=== PATIENT | female | born 1990 | race Two or more races ===

== ENCOUNTER 2022-08-23 10:37 | Emergency (ER) | payer OTHER, SELFPAY ==
[2022-08-23 10:39] VITALS: BP 145/91; PULSE 99; RESP 22; TEMP 36.8; O2SAT 95; BMI 39.9
--- NOTE | 2022-08-23 11:13 | PC.NURSE ---
swabs obtained sent to lab
--- NOTE | 2022-08-23 11:18 | ED.URI ---
HPI - URI/Sore Throat General Chief Complaint: Upper Respiratory Symptoms Stated Complaint: Diff breathing/Lung pain Time Seen by Provider: 08/23/22 11:04 Source: patient Mode of arrival: ambulatory Limitations: no limitations History of Present Illness HPI Narrative: Patient is a 32-year-old female who presents emergency department for evaluation of upper respiratory symptoms. Fever, cough, body aches, headache. Symptom onset 3 days ago. Yesterday at work took a COVID-19 test as there was an exposure in her office which she reports was negative. States no other individuals in her home are ill with similar symptoms currently. Denies vaccination for COVID-19 or influenza. Denies chest pain, wheezing, nausea, vomiting, abdominal pain. Review of Systems Review of Systems: Constitutional: Positive fever. Positive chills. No weakness. Positive fatigue. ENT/ Mouth: No Ear Pain, positive Nasal Congestion, no sore throat, No Rhinorrhea, No Swallowing Difficulty Skin: No rash or itching. Cardiovascular: No chest pain. No palpitations. Respiratory: Positive intermittent shortness of breath. Positive cough. No sputum production. Gastrointestinal: No nausea. No vomiting. No diarrhea. No abdominal pain. Genitourinary: No burning micturition. No urinary frequency. Neurologic: No headache. No dizziness. No syncope. No numbness or tingling in the extremities. Musculoskeletal: No muscle pain. No back pain. No joint pain or stiffness. Yes all other systems are reviewed and are negative [facility] Past Medical History Attestation statement: The following information was validated with the patient. Source: old records reviewed Social History Social History Advance Directives: No Advance Directives Information Provided: Yes Physical Exam Vital Signs: Vital Signs: Last Vital Signs Temp 98.3 F 08/23/22 10:39 Pulse 99 08/23/22 10:39 Resp 22 H 08/23/22 10:39 BP 145/91 H 08/23/22 10:39 Pulse Ox 95 08/23/22 10:39 O2 Del Method 08/23/22 10:39 BMI result Body Mass Index 39.9 Appearance: Alert.?Oriented to person, place and time. No acute distress.?Normal affect. Eyes: Pupils equal, round and reactive to light.? ENT: TM normal bilaterally. Pharynx normal.?? Neck: Normal inspection.? Neck supple.??No cervical adenopathy CVS: Heart sounds normal. Normal heart rate and rhythm.? Pulses normal.?? Respiratory: No respiratory distress.? Lung sounds clear to auscultation bilaterally?? Abdomen: Soft and non-tender. Normoactive bowel sounds. Skin: Skin warm and dry.? Normal skin color.? ? Extremities: No lower extremity edema.? Neuro: Moves all extremities spontaneously. Sensation intact bilaterally. No motor deficits. Ambulates with normal steady gait. Medical Decision Making Medical Decision Making [facility] Narrative: Patient is a 32-year-old female with no reported past medical history, presenting for evaluation of upper respiratory symptoms. COVID-19 testing is negative. Influenza testing is negative. At this time history and physical exam not consistent with ACS/PE/pneumonia. Well-appearing, nontoxic, afebrile, no tachycardia or hypoxia. Speaking clear full sentences, ambulatory with steady gait. Discussed conservative treatment including rest, hydration, Tylenol/ibuprofen as needed for fever and body aches, saline nasal spray, humidifier, qnhj-xtw-ftnangs cold medication. Advised to follow-up with primary care provider as needed, discussed reasons to return back to the emergency department. All questions were answered. Patient discharged home in stable condition. Provided with a return to work note. Lab Data [facility] Lab Attestation statement: I reviewed the patient's lab results. Labs: Lab Results 08/23/22 08/23/22 Range/Units 11:06 11:06 COVID-19 (YANIRA) Negative (Negative) COVID-19 Clin Com See Note Influenza Type A (SLY) Negative (Negative) Influenza Type B (SLY) Negative (Negative) Influenza A & B Note See Note Tests considered The following testing was considered but not selected: Chest x-ray was considered, however no hypoxia, increased work of breathing, low suspicion for pneumonia at this time. Chest x-ray was deferred. Prescription Management I considered prescription management with: Antibiotic (Symptoms most consistent with viral upper respiratory infection at this time, antibiotics deferred.) Discharge Plan Discharge Clinical Impression: Upper respiratory infection Patient Disposition: Home, Self-Care Instructions: Upper Respiratory Infection (ED) Additional Instructions: Your testing for COVID-19 and flu were both negative today. At this time your symptoms are most consistent with a viral respiratory infection, this does not require treatment with antibiotics. Be sure to rest, stay well hydrated drinking plenty of fluids, eat small frequent meals. Tylenol/ibuprofen can be used as needed for fever/pain. Umac-mko-nxydqge cold medications may be helpful as well for symptoms. Saline nasal spray, humidifier may be helpful for nasal congestion. You may return to the emergency department with any new or worsening symptoms or concerns. Follow-up with your primary care provider as needed. Should remain out of school/ work until symptoms have resolved and have been without a fever for 24 hours without the use of Tylenol or ibuprofen. Referrals: Physician,Unknown J [Primary Care Provider] - Stand Alone Forms: Work/School Release
[2022-08-23 11:38] LABS: COVID-19 Test Negative (Negative); IDNOW Serial# 08D9AD1C; Influenza A Negative (Negative); Influenza B2 Negative (Negative)
== END 2022-08-23 12:21 | disposition home or self-care (01) ==
PROVIDERS: Emergency Provider Student in an Organized Health Care Education/Training Program
DX: J06.9 Acute upper respiratory infection, unspecified (principal); Z20.822 Contact with and (suspected) exposure to COVID-19
CPT/HCPCS: 87502; 87635; 99282; 99283

== ENCOUNTER → 2022-12-12 15:11 | Outpatient (BNVA) | payer MEDICAID, SELFPAY | PROVIDERS: Visit Provider Physician Assistant ==

== ENCOUNTER → 2023-01-03 12:54 | Outpatient (BNVA) | payer OTHER, SELFPAY | PROVIDERS: PCP Physician Assistant; Visit Provider Physician Assistant Surgical | DX: E66.01 Morbid (severe) obesity due to excess calories (principal); G47.33 Obstructive sleep apnea (adult) (pediatric); Z68.41 Body mass index [BMI] 40.0-44.9, adult | CPT/HCPCS: 99202 ==

== ENCOUNTER 2023-01-11 08:16 | Outpatient (REF) | payer OTHER, SELFPAY ==
--- NOTE | ~2023-01-11 | XR_ITS ---
EXAMINATION: XR CHEST CLINICAL INFORMATION: Reason for Exam E66.01 - Morbid (severe) obesity due to excess calories COMPARISON: None TECHNIQUE: 2 views of the chest FINDINGS: Lines and tubes: None. Clear lungs. No pleural effusion. No pneumothorax. Normal cardiomediastinal silhouette. XR/XR chest 2V IMPRESSION: * Clear lungs.
--- NOTE | 2023-01-11 08:23 | ECG_ITS ---
Test Reason : e66.01 Blood Pressure : / mmHG Vent. Rate : 075 BPM Atrial Rate : 075 BPM P-R Int : 160 ms QRS Dur : 094 ms QT Int : 378 ms P-R-T Axes : 048 044 010 degrees QTc Int : 422 ms Normal sinus rhythm Normal ECG No previous ECGs available Referred By: Jose Wilkes Electronically Signed By:MEENU FLOWERS MD
[2023-01-11 08:35] LABS: MANUAL DIFF FLAG NO
[2023-01-11 09:34] LABS: Basophils Percent Auto 0.3 % (0-2); Eosinophils Absolute Auto 0.1 X10*3/uL (0.0-0.4); Hematocrit 34.8 % (37.0-47.0); Hemoglobin 10.7 g/dl (12.0-16.0); Imm Gran Abs Auto 0.04 X10*3/uL (0.00-0.03); Imm Gran Pct Auto 0.4 % (0.0-0.4); Lymphocytes Absolute Auto 2.5 X10*3/uL (1.2-4.9); Lymphocytes Percent Auto 26.3 % (20-40); Mean Corpuscular HGB Conc 30.7 g/dl (31.0-35.0); Mean Corpuscular Hemoglobin 21.7 pg (27.0-33.0); Mean Corpuscular Volume 70.4 fL (80.0-98.0); Mean Platelet Volume 10.5 fL (9.4-12.3); Monocytes Absolute Auto 0.5 X10*3/uL (0.1-1.2); Monocytes Percent Auto 5.5 % (2-11); Neutrophils Absolute Auto 6.3 x10*3/uL (2.0-8.3); Neutrophils Percent Auto 66.5 % (45-73); Platelet Count 426 X10*3/uL (160-400); Red Blood Count 4.94 X10*6/uL (4.20-5.50); Red Cell Distribution Width 15.8 % (11.0-16.0); White Blood Count 9.4 X10*3/uL (4.8-10.8)
[2023-01-11 09:50] LABS: Estimated Average Glucose 114 mg/dL; Hemoglobin A1c % 5.6 %
[2023-01-11 10:45] LABS: Alanine Aminotransferase 15 U/L (0-31); Albumin Level 4.1 g/dL (3.5-5.0); Alkaline Phosphatase 69 U/L (39-117); Anion Gap 11 (12-20); Aspartate Amino Transferase 11 U/L (5-31); Bilirubin Total 0.5 mg/dL (0.0-1.0); Blood Urea Nitrogen 16 mg/dL (9-16); C Reactive Protein 1.82 mg/dL (< or = 0.50); Calcium 9.5 mg/dL (8.4-10.2); Carbon Dioxide 25 mmol/L (22-29); Chloride 105 mmol/L (96-108); Cholesterol 159 mg/dL; Estimated Glomerular Filt Rate > 60; Glucose Random 93 mg/dL (60-115); HDL Cholesterol 35 mg/dL; Iron 56 mcg/dL (30-160); LDL Cholesterol Calculated 94 mg/dl; Percent Iron Saturation 13 % (15-50); Sodium 137 mmol/L (135-145); Total Iron Binding Capacity 430 mcg/dL (228-428); Total Protein 6.9 g/dL (6.5-8.0); Triglycerides 153 mg/dL; Unsaturated Iron Binding 374 ug/dL
[2023-01-11 11:06] LABS: Ferritin 21 ng/mL (10-122); Folate 13.7 ng/mL (> or = 4.0); TSH reflex Free T4 0.89 uIU/mL (0.32-4.0); Vitamin B12 318 pg/mL (200-900); Vitamin D 25-OH Total 30.8 ng/mL (>30)
[2023-01-11 11:24] LABS: Insulin 18 uU/mL (2-29)
[2023-01-12 11:17] LABS: H Pylori Breath Test Negative (Negative)
[2023-01-16 14:18] LABS: Calcium (PTHI) 9.5 mg/dL (8.6-10.2); PTHI 43 pg/mL (16-77)
[2023-01-16 15:29] LABS: Zinc 71 mcg/dL (60-130)
[2023-01-18 11:29] LABS: Vitamin B1 9 nmol/L (8-30)
[2023-01-18 16:08] LABS: Vitamin A 57 mcg/dL (38-98)
== END 2023-01-11 08:17 | disposition home or self-care (01) ==
LOC: HO.XRAY 08:16
PROVIDERS: PCP Physician Assistant; Visit Provider Physician Assistant Surgical
DX: E66.01 Morbid (severe) obesity due to excess calories (principal); Z11.0 Encounter for screening for intestinal infectious diseases
CPT/HCPCS: 36415; 71046; 80053; 80061; 82306; 82607; 82728; 82746; 83013; 83036; 83525; 83540; 83970; 84425; 84443; 84590; 84630; 85025; 86140; 93005

== ENCOUNTER → 2023-01-20 11:57 | Outpatient (BNVA) | payer OTHER, SELFPAY | PROVIDERS: PCP Nurse Practitioner Family; Referring Provider Physician Assistant Surgical; Visit Provider Counselor Mental Health ==

== ENCOUNTER → 2023-02-03 13:30 | Outpatient (BNVA) | payer OTHER, SELFPAY | PROVIDERS: Referring Provider Physician Assistant Surgical; Visit Provider Dietitian, Registered | DX: E66.01 Morbid (severe) obesity due to excess calories (principal) | CPT/HCPCS: 97802 ==

== ENCOUNTER → 2023-02-09 08:39 | Outpatient (REF) | payer OTHER, SELFPAY | LOC: HO.SL 08:39 | PROVIDERS: PCP Nurse Practitioner Family; Visit Provider Nurse Practitioner Family | DX: G47.33 Obstructive sleep apnea (adult) (pediatric) (principal) | CPT/HCPCS: 95806 ==

== ENCOUNTER → 2023-02-16 11:28 | Outpatient (BNVA) | payer OTHER, SELFPAY | PROVIDERS: PCP Nurse Practitioner Family; Visit Provider Physician Assistant Surgical | DX: E66.9 Obesity, unspecified (principal); Z68.37 Body mass index [BMI] 37.0-37.9, adult | CPT/HCPCS: 99212 ==

== ENCOUNTER 2023-03-01 08:38 | Outpatient (REF) | payer OTHER, SELFPAY ==
--- NOTE | 2023-03-01 08:41 | EMG_ITS ---
Please see scanned EMG / Nerve Conduction Report. MTDD
== END 2023-03-01 08:39 | disposition home or self-care (01) ==
LOC: HO.NEURO 08:38
PROVIDERS: PCP Nurse Practitioner Family; Visit Provider Nurse Practitioner Family
DX: R20.2 Paresthesia of skin (principal)
CPT/HCPCS: 95885; 95910

== ENCOUNTER 2023-03-02 15:45 | Outpatient (AMB) | payer OTHER, SELFPAY ==
--- NOTE | 2023-03-02 15:34 | MHC.AMNUTRGE ---
Intake Intake Visit Reasons: TV F/U SWL Allergies No Known Allergies Allergy (Verified 02/16/23 11:33) HPI Nutrition Presentation Details [employer] weight 235# current weight 226# Reason for consult elevated BMI Diet Assmnt Details Is happy with her nutrition plan. Doing very well. 7-8pm meat and vegetables - chicken and salad for 1 week stopped going to the gym because of pain. stopped having the shakes for a period of time. Was having eggs, cheese , ham. lunch had subway salad. Exercise: treadmill, bike, amparo, 5x days per week , 60 minutes - 75 minutes SWL online classes: completed reviewed Highest weight (pounds) 286 Dietary counseling reduction Diagnosis Nutrition problem #1 overweight/obesity As related to (etiology) #1 excess energy intake and physical inactivity As evidenced by (sign/symptom) #1 high BMI Monitoring/Goals Nutrition problem monitoring total energy intake, level of knowledge/skill, total PRO intake, total CHO intake and weight Outcome progress progressing Learning/Education Readiness to learn good Stages of change action Educational materials provided Yes Most Recent Diabetes Results: Cholesterol 159 mg/dL 01/11/23 HDL Cholesterol 35 mg/dL 01/11/23 Triglycerides 153 mg/dL 01/11/23 Creatinine 0.72 mg/dL (0.5-1.4) 01/11/23 Blood Urea Nitrogen 16 mg/dL (9-16) 01/11/23 Sodium 137 mmol/L (135-145) 01/11/23 Potassium 4.0 mmol/L (3.3-5.1) 01/11/23 Chloride 105 mmol/L (96-108) 01/11/23 Carbon Dioxide 25 mmol/L (22-29) 01/11/23 Calcium 9.5 mg/dL (8.4-10.2) 01/11/23 AST 11 U/L (5-31) 01/11/23 ALT 15 U/L (0-31) 01/11/23 Total Protein 6.9 g/dL (6.5-8.0) 01/11/23 Albumin 4.1 g/dL (3.5-5.0) 01/11/23 PFSH Surgical History History of surgery on arm Hx of appendectomy Hx of section Tubal ligation status Family History Mother Heart disease Hypertension Brain tumor Diabetes Thyroid condition Father No problems noted. Daughter No problems noted. Son No problems noted. Son No problems noted. 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 classes were reviewed today. Telehealth Telehealth Location of provider rendering services: other (home addresss) Location of patient: address on file Patient Identification confirmed using: Name, : Yes Telehealth method: voice only Patient verbally consented to treatment: Yes Patient verbally consented to billing insurance company: Yes Patient informed of any privacy concerns related to visit: Yes Minutes spent on Phone/Video with Pt.: 15 Coding Level of Care Code Nutr Indiv Subseq ([id number]) Diagnoses Obesity (BMI 30-39.9) E66.9 Time Spent (min) 15
== END 2023-03-02 16:37 | disposition home or self-care (01) ==
LOC: HO.HBS 16:08
PROVIDERS: PCP Nurse Practitioner Family; Visit Provider Dietitian, Registered
DX: E66.9 Obesity, unspecified (principal)

== ENCOUNTER → 2023-03-02 15:45 | Outpatient (BNVA) | payer OTHER, SELFPAY | PROVIDERS: PCP Nurse Practitioner Family; Visit Provider Dietitian, Registered | DX: E66.9 Obesity, unspecified (principal); Z71.3 Dietary counseling and surveillance | CPT/HCPCS: 97803 ==

== ENCOUNTER 2023-03-15 07:50 | Outpatient (REF) | payer OTHER, SELFPAY ==
--- NOTE | ~2023-03-15 | US_ITS ---
EXAMINATION: US COMPLETE ABDOMEN WITH LIVER ELASTOGRAPHY CLINICAL INFORMATION: Morbid obesity COMPARISON: None available. TECHNIQUE: Real-time imaging of the abdominal viscera. Noninvasive ultrasound liver fibrosis assessment is performed using Yusuf ElastPQ point quantification shear wave elastography (2D-SWE) with a C5-2 MHz transducer. Multiple elastography samples are obtained. FINDINGS: PANCREAS: Normal. The visualized pancreatic head and body are normal in appearance. The remainder of the pancreas is obscured from visualization by the overlying bowel gas. ABDOMINAL AORTA: The proximal, middle, and distal aortic segments are normal in caliber. INFERIOR VENA CAVA: Visualized portions are normal. LIVER: There is general increased echogenicity of the liver consistent with fatty infiltration/hepatocellular disease. No focal mass or intrahepatic bile duct dilatation is seen. The right lobe measures 14.5 cm in length. The left lobe measures 10.4 cm in length. Portal flow is hepatopedal Shear wave liver elastography median stiffness is 1.50 m/s (reference: normal median stiffness is 1.3 m/s or less). IQR/median stiffness to assess sampling precision is 0.03 (reference: good quality data set is IQR/median stiffness of 0.15 or less). GALLBLADDER: Normal. The gallbladder is physiologically distended without evidence of stones, sludge, polyps, wall thickening or pericholecystic fluid. COMMON BILE DUCT: Normal in caliber measuring 0.2 cm in diameter. RIGHT KIDNEY: Normal. No hydronephrosis. No renal calculi or focal parenchymal lesions. The kidney measures 11.1 cm in maximum dimension. LEFT KIDNEY: Normal. No hydronephrosis. No renal calculi or focal parenchymal lesions. The kidney measures 11.7 cm in maximum dimension. SPLEEN: Normal. The spleen measures 10.7 cm in maximum dimension. FREE FLUID: None. US/US abdomen comp w elastography IMPRESSION: 1. Findings consistent with fatty infiltration/hepatocellular disease. 2. Liver elastography: In the absence of other known clinical signs, measurements rule out compensated advanced chronic liver disease. If there are known clinical signs, further testing may be needed for confirmation. REFERENCE: Society of Radiologists in Ultrasound Liver Stiffness Thresholds (2020): LIVER STIFFNESS THRESHOLDS: *Liver Stiffness equal or less than 1.3 m/s: High probability of being normal. *Liver Stiffness less than 1.7 m/s: In the absence of other known clinical signs, rules out compensated advanced chronic liver disease. *Liver Stiffness 1.7-2.1 m/s: Suggestive of compensated advanced chronic liver disease but need further test for confirmation. *Liver Stiffness over 2.1 m/s: Rules in compensated advanced chronic liver disease. *Liver Stiffness over 2.4 m/s: Suggestive of clinically significant portal hypertension. QUALITY OF DATA SET: *IQR/Median value equal or less than 0.15 implies a quality data set. *IQR/Median value over 0.15 implies a poor quality data set. SIGNIFICANT CHANGE FROM PRIOR EXAM: Significant change if liver stiffness measurement is 10% or greater from prior exam. OTHER CONSIDERATIONS: The stage of liver fibrosis may be overestimated in the setting of acute hepatitis, liver inflammation, elevated liver function tests, hepatic vascular congestion, obstructive cholestasis, non-fasting state, and infiltrative diseases such as amyloidosis and lymphoma. In some patients with NAFLD, the liver stiffness thresholds for compensated advanced chronic liver disease may be lower. In causes other than viral hepatitis and NAFLD, liver stiffness thresholds are not well established.
== END 2023-03-15 07:51 | disposition home or self-care (01) ==
LOC: HO.US 07:50
PROVIDERS: Visit Provider Physician Assistant Surgical
DX: E66.01 Morbid (severe) obesity due to excess calories (principal)
CPT/HCPCS: 76705; 76981

== ENCOUNTER 2023-04-10 08:27 | Outpatient (REF) | payer OTHER, SELFPAY ==
--- NOTE | ~2023-04-10 | FL_ITS ---
EXAMINATION: XR FLUOROSCOPY UPPER GI WITH AIR CLINICAL INFORMATION: Obesity COMPARISON: None available. TECHNIQUE: Upper GI was performed using thin and thick barium and effervescent granules FINDINGS: Esophageal motility is normal. There is gastroesophageal reflux. No hernia is seen. The stomach and duodenum are normal. No fold thickening, mass, ulcer or stricture is seen. FLUOROSCOPY TIME: 0.7 minutes DOSE AREA PRODUCT: 6.6 ridley per centimeter squared. Total dose 28 mgy. 16 saved fluoroscopic images. FL/FL upper GI w air IMPRESSION: Gastroesophageal reflux otherwise unremarkable exam.
== END 2023-04-10 08:28 | disposition home or self-care (01) ==
LOC: HO.XRAY 08:27
PROVIDERS: PCP Nurse Practitioner Family; Visit Provider Physician Assistant Surgical
DX: E66.01 Morbid (severe) obesity due to excess calories (principal)
CPT/HCPCS: 74246

== ENCOUNTER → 2023-04-10 08:28 | Outpatient (BNV) | payer OTHER, SELFPAY | PROVIDERS: PCP Nurse Practitioner Family; Visit Provider Radiology Diagnostic Radiology | DX: K21.9 Gastro-esophageal reflux disease without esophagitis (principal) | CPT/HCPCS: 74246 ==

== ENCOUNTER 2023-04-25 13:30 | Outpatient (AMB) | payer OTHER, SELFPAY ==
--- NOTE | 2023-04-25 13:34 | MHC.OFFVISWM ---
Intake VS Expanded 04/25/23 13:41 Height 5 ft 5 in Weight 227 lb BMI 37.8 BP 126/67 Blood Pressure Location Rt brachial Blood Pressure Position Sitting Pulse 87 Pulse Source Pulse Oximeter Temp 98.4 F Temperature Source Temporal Artery Scan Pulse Oximetry 98 Oxygen Delivery Method Room Air Body Fat 97.4 Body Fat Percentage 43.0 Free Fat Mass 129.4 Muscle Mass 122.8 Visceral Mass 10.0 Water Mass 92.8 BMR 1,824 Intake Visit Reasons: (ov) SWL F/u Allergies No Known Allergies Allergy (Verified 04/25/23 13:40) HPI HPI Comments History of Present Illness Details The patient is a pleasant 33 year old female who returns to the clinic for pre-operative surgical weight loss management. They were last seen in the office on 02/16/23, recorded weight at that time was 227.4 pounds, with a BMI of 37.8. Today's weight is 227 pounds and BMI is 37.8. There has been a weight loss of 13.6 pounds since initiating the surgical weight loss program on 01/03/23 with a total body weight loss of 5.6 %. Pre op work up completed as follows: SWL classes:? 11/19 BH appts: missed f/u 02/10/23, needs f/u ? ? RD appts: cleared 03/02/23 Labs: 01/11/23-low D, B12:318 H. pylori: 01/11/23-neg CXR: 01/11/23-nad EK01/11/23-normal ABD U/S: 03/09/23-fatty liver UGI: 04/10/23-gerd The patient reports she wa in [place] for 5 weeks to help her sister who was in a MVA. She did not have her bars/shakes but was trying to eat healthy. She returned end of march. She has since re-started the meal plan. Current meal plan includes: 3 Pure Protein shakes, (1/2 scoop in 8 oz low fat unsweetened almond milk each) First shake at 630am-830am Second shake at? 1030am-1230pm 1 protein bar (Zone Macro bars at [employer], [employer], [employer] or [employer]) at 230pm-430pm. Dinner at 7pm (8 forks of protein and 8 forks of salad/vegetables). Another shake with 1/2 scoop in 8 oz unsweetened almond milk at 8pm-10pm. Drinking 48-64 oz of water Current exercise plan includes: zoomba videos at home. PFSH Surgical History Tubal ligation status History of surgery on arm Hx of section Hx of appendectomy Family History Mother Heart disease Hypertension Brain tumor Diabetes Thyroid condition Father No problems noted. Daughter No problems noted. Son No problems noted. Son No problems noted. 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 Cognitive needs: No Hearing needs: No Vision needs: Yes (glasses) Female Reproductive History Menstrual Age of Menarche: 13 Physical Exam Const General: healthy appearing and no acute distress Resp Effort & Inspection: normal respiratory effort Auscultation: clear to auscultation bilaterally Cardio Rate: regular rate Rhythm: regular rhythm GI Auscultation: normal bowel sounds Extrem General: Yes normal to inspection Assessment & Plan Assessment & Plan (1) Obesity (BMI 30-39.9): Code(s): E66.9 - Obesity, unspecified Plan: No sig weight gain/loss over the last 2 months which is good given 5 weeks in [place] caring for her sister. Now [place] at [place]. Return to meal plan continue exercise and track calories Get BH appt RTC [address] Brown Coding Level of Care Code Est Pt Level 3 (56100) Diagnoses Obesity (BMI 30-39.9) E66.9
[2023-04-25 13:41] VITALS: BP 126/67; PULSE 87; TEMP 36.9; O2SAT 98; BMI 37.8
== END 2023-04-25 14:00 | disposition home or self-care (01) ==
PROVIDERS: PCP Nurse Practitioner Family; Visit Provider Physician Assistant Surgical
DX: E66.9 Obesity, unspecified (principal); Z68.37 Body mass index [BMI] 37.0-37.9, adult
CPT/HCPCS: 99213

== ENCOUNTER → 2023-04-25 13:30 | Outpatient (BNVA) | payer OTHER, SELFPAY | PROVIDERS: PCP Nurse Practitioner Family; Visit Provider Physician Assistant Surgical | DX: E66.9 Obesity, unspecified (principal); Z68.37 Body mass index [BMI] 37.0-37.9, adult | CPT/HCPCS: 99212 ==

== ENCOUNTER 2023-05-02 14:26 | Outpatient (AMB) | payer OTHER, SELFPAY ==
--- NOTE | 2023-05-02 15:17 | MHC.OFFVIS ---
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 States her right is worse. Symptoms started about 1 year ago and has worsen. States numbness wakes her up at night, has weakness in hand when cooking, and has constant numbness in tips of her fingers. EMG done. 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 She complains of bilateral hand numbness right worse than left. Her symptoms on the right are now constant. The symptoms on the left are more occasional. She has had a nerve conduction study. She also complains of some pain and tightness in the right middle finger but denies any known injury. She denies locking and catching. [facility] Surgical History Tubal ligation status History of surgery on arm Hx of section Hx of appendectomy Family History Mother Heart disease Hypertension Brain tumor Diabetes Thyroid condition Father No problems noted. Daughter No problems noted. Son No problems noted. Son No problems noted. 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 Cognitive needs: No Hearing needs: No Vision needs: Yes (glasses) Female Reproductive History Menstrual Age of Menarche: 13 Physical Exam Vital Signs: BMI result Body Mass Index 37.6 Const General: cooperative, healthy appearing and no acute distress Orientation/consciousness: oriented to person and oriented to place HEENT Head: Yes normocephalic and Yes atraumatic Eyes EOM: EOMs intact bilaterally Resp Effort & Inspection: normal respiratory effort and able to speak in complete sentences Cardio Jugular venous distension: no JVD Skin General skin exam: turgor normal Rashes: no rashes Neuro General: oriented to person and oriented to place Extrem Other: Evaluation of right Upper Extremity: Neuro: Median, ulnar, radial nerves motor and sensory intact except for dense numbness in the median nerve distribution. She has more normal sensation to the small finger. No thenar or intrinsic wasting. Good finger cross and good APB muscle belly firing. Vascular: Cap refill brisk. ROM: Can bring fingers closed to a fist and back out to extension. Can oppose thumb to fingertips Smooth and painless wrist ROM Skin: No lacerations or abrasions. General: No eccymosis. No erythema or evidence of infection. EMG nerve conduction study: Impression: Mild to moderate compression palsy of the right median nerve at the wrist consistent with mild to moderate right carpal tunnel syndrome. Mild carpal tunnel syndrome of the left Normal EMG of the right C5-T1 innervated muscles Dr. Boyd 03/01/2023 Please see his report for additional information as necessary Psych Appearance: grossly normal Affect: normal affect Attitude: cooperative Assessment & Plan Assessment & Plan (1) Carpal tunnel syndrome, right: Code(s): G56.01 - Carpal tunnel syndrome, right upper limb (2) Carpal tunnel syndrome of left wrist: Code(s): G56.02 - Carpal tunnel syndrome, left upper limb Plan Assessment and plan: 1. Right carpal tunnel syndrome, mild to moderate With dense numbness 2. Left carpal tunnel syndrome, mild More intermittent and occasional I educated her about this condition We discussed operative and non operative treatment options I am recommending surgery for the right The risks and benefits of operative treatment were discussed with the patient and the patient wishes to proceed with surgery. These risks include, but are not limited to risk of damage to blood vessels, nerves, tendons, infection, recurrence, incomplete relief of preoperative symptoms, persistent pain, possible need for further surgery and the risks associated with regional blocks and anesthesia. The plan is to take the patient to the operating room sometime in the next few weeks for the following procedures: 1. Right carpal tunnel release under local 2. [ ] All of the preoperative paperwork including the consent was filled out today. All the patient's questions were answered. The patient understands that they will be contacted by our dental scheduler soon to schedule this procedure She denies having diabetes or being on blood thinners . We can discuss treatment options for the left side after her right carpal tunnel release. 3. Right middle finger pain Occasional No history of injury No locking or catching I educated her about this we talked about the importance of maintaining range of motion. This continues to be a problem we can consider radiographs a later date. Coding Level of Care Code New Pt Level 4 (09652) Diagnoses Carpal tunnel syndrome, right G56.01 Carpal tunnel syndrome of left wrist G56.02
[2023-05-02 15:18] VITALS: BMI 37.6
== END 2023-05-02 15:59 | disposition home or self-care (01) ==
PROVIDERS: PCP Nurse Practitioner Family; Visit Provider Orthopaedic Surgery
DX: G56.03 Carpal tunnel syndrome, bilateral upper limbs (principal)
CPT/HCPCS: 99204

== ENCOUNTER → 2023-05-02 14:26 | Outpatient (BNVA) | payer OTHER, SELFPAY | PROVIDERS: PCP Nurse Practitioner Family; Visit Provider Orthopaedic Surgery ==

== ENCOUNTER → 2023-05-31 13:53 | Outpatient (BNVA) | payer OTHER, SELFPAY | PROVIDERS: PCP Nurse Practitioner Family; Visit Provider Orthopaedic Surgery ==

== ENCOUNTER 2023-06-05 11:47 | Outpatient (AMB) | payer OTHER, SELFPAY ==
[2023-06-05 11:51] VITALS: BP 126/80; PULSE 75; O2SAT 98; BMI 38.8
--- NOTE | 2023-06-05 11:51 | MHC.PC.OV ---
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 Intake Note: Patient here c/o anxiety, panic attacks requesting psychiatrist referral Beck Tender Required: No Accompanied by: Self / Same As Patient Allergies No Known Allergies Allergy (Verified 06/05/23 11:53) Tobacco use date assessed: 01/13/23 Dental Screening Dental Screen Date: 06/05/23 Did you have a dental visit in the last 12 months?: Yes Did you have a dental problem in the last 6 months where you did not have access to dental care?: No Was dental information given to patient?: Patient has dentist HPI HPI Comments History of Present Illness Details 33-year-old female past medical history significant for fibromyalgia, NIA on CPAP, bilateral carpal tunnel syndrome. Review of the notes patient currently following with orthopedic hand surgeon plan to undergo right carpal tunnel release. Patient presents today for difficulty concentrating and increased anxiety. Patient reports when she was younger hx adhd,anxiety previously on adderall. States she discontinued this medication 3-4 years ago. Over the past 3 years patient has been controlling her ADHD and anxiety with meditation. However as of recently she reports increased difficulty concentrating, panic attacks for which she experiences rapid heartbeart, your sensitivity and starts crying. 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 To see if she was okay. Patient requesting referral for psychiatry and counseling. Harjeet 7 and PHQ-9 scoring for severe anxiety and depression discussed starting patient on escitalopram 10 mg daily. [facility] Surgical History Tubal ligation status History of surgery on arm Hx of section Hx of appendectomy Family History Mother Heart disease Hypertension Brain tumor Diabetes Thyroid condition Father No problems noted. Daughter No problems noted. Son No problems noted. Son No problems noted. 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 1. Little interest or pleasure in doing things: more than half the days 2. Feeling down, depressed, or hopeless: nearly every day 3. Trouble falling or staying asleep, or sleeping too much: nearly every day 4. Feeling tired or having little energy: nearly every day 5. Poor appetite or overeating: nearly every day 6. Feeling bad about yourself - or that you are a failure or have let yourself or your family down: nearly every day 7. Trouble concentrating on things, such as reading the newspaper or watching television: nearly every day 8. Moving or speaking so slowly that other people could have noticed. Or the opposite - being so fidgety or restless that you have been moving around a lot more than usual: nearly every day 9. Thoughts that you would be better off or of hurting yourself in some way: not at all Total score: 23 Depression Screening Interpretation: Positive Depression Screening Done: Yes [id number] - PHQ-9 Billing: Yes Source: Developed by Drs. Joss Vyas, Opal Hall, Sajan Hernandez and colleagues, with an educational binh from [employer]. Thrive Questionnaire Date Thrive assessed: 01/13/23 HARJEET-7 AMB Questionnaire HARJEET-7 Date HARJEET - 7 assessed: 06/05/23 Feeling nervous, anxious, or on edge: 3 = Nearly every day Not being able to stop or control worryin = Nearly every day Worrying too much about different things: 3 = Nearly every day Trouble relaxin = Nearly every day Being so restless that it is hard to sit still: 2 = More than half the days Becoming easily annoyed or irritable: 3 = Nearly every day Feeling afraid as if something awful might happen: 2 = More than half the days Total HARJEET-7 score (0-4 normal; 5-9 mild; 10-14 moderate; 15-21 severe): 19 Source: Developed by Drs. Joss Vyas, Opal Hall, Sajan Hernandez and colleagues, with an educational binh from [employer]. HARJEET-7 Assessment Billing HARJEET-7 Assessment Tool: HARJEET-7 Assessment 87367 Review of Systems Const Denies chills, Denies fatigue, Denies fever(s) and Denies poor appetite Eyes Denies no additional complaints ENT Reports Normal hearing present Card Denies chest pain, Denies syncope, Denies rapid heart rate and Denies dyspnea Resp Denies cough and Denies dyspnea GI Denies change in stool character, Denies constipation, Denies diarrhea, Denies nausea and Denies vomiting Denies urinary frequency, Denies dysuria and Denies urinary urgency Neuro Reports Normal hearing present, Denies confusion and Denies syncope Psych Denies confusion Endo Denies fatigue Physical exam (Primary Care) Vital Signs: Last Vital Signs Pulse 75 06/05/23 11:51 BP 126/80 06/05/23 11:51 Pulse Ox 98 06/05/23 11:51 Oxygen Delivery Method Room Air 06/05/23 11:51 BMI result Body Mass Index 38.8 Tobacco/Smoking Status: Tobacco use Status Tobacco use date assessed 01/13/23 06/05/23 11:58 Patient Tobacco Use Status Never used Tobacco 06/05/23 11:58 e-Cigarette/Vaping Use Never Used 06/05/23 11:58 PHQ-9: PHQ-9 Score PHQ-9: Total score 23 06/05/23 12:29 Depression Screening Interpretation: Positive Thrive Assessment: Date of Thrive Assessment Date Thrive assessed 01/13/23 06/05/23 11:58 Const General: No confusion Orientation/consciousness: No confusion HENMT Head: Yes normocephalic and Yes atraumatic Eyes Conjunctivae: conjunctivae normal Chest Chest palpation & inspection: normal inspection of the chest Resp Effort & Inspection: normal respiratory effort Auscultation: clear to auscultation bilaterally, no crackles, no rhonchi and no wheezes Cardio Rate: regular rate Rhythm: regular rhythm Heart sounds: S1 normal heart sound present and S2 normal heart sound present GI Inspection: Yes normal to inspection Neuro General: No confusion Cranial nerves: Yes Normal hearing present Extrem General: No edema Office Procedures Flu Questionnaire Does the patient have a severe egg allergy?: No Immunizations flu vacc [id number] 6mos up(PF) 60 mcg(15 mcgx4)/0.5 mL IM syringe Performing Provider: ADRIANE Mazariegos [facility] Documented (not given) by: TULIO Gómez on 06/05/23 12:29 Reason Not Given: Patient Refused Assessment and Plan Assessment & Plan (1) Generalized anxiety disorder with panic attacks: Code(s): F41.1 - Generalized anxiety disorder; F41.0 - Panic disorder [episodic paroxysmal anxiety] Plan: Will initiate patient on escitalopram 10 mg daily. Referral entered for counseling and psychiatry (2) ADHD: Code(s): F90.9 - Attention-deficit hyperactivity disorder, unspecified type Plan: Referral entered to Psychiatry for medication management for ADHD. (3) Fibromyalgia: Code(s): M79.7 - Fibromyalgia Plan: Continue on gabapentin 800mg tid, refill sent to patients pharmacy. (4) Depression: Code(s): F32.A - Depression, unspecified Plan: Will initiate patient on escitalopram 10 mg daily. Referral entered for counseling and psychiatry Plan Keep scheduled follow-up in 2 months Orders: Orders Influenza [id number] Immunization Today Z23 - Encounter for immunization Referrals Counseling Referral F41.0 - Panic disorder [episodic paroxysmal anxiety], F41.1 - Generalized anxiety disorder, F90.9 - Attention-deficit hyperactivity disorder, unspecified type Psychiatry Referral F41.0 - Panic disorder [episodic paroxysmal anxiety], F41.1 - Generalized anxiety disorder, F90.9 - Attention-deficit hyperactivity disorder, unspecified type Medications: New escitalopram oxalate 10 mg PO DAILY 30 tabs 3RF F41.0 - Panic disorder [episodic paroxysmal anxiety], F41.1 - Generalized anxiety disorder gabapentin 800 mg PO TID 90 tabs 2RF M79.7 - Fibromyalgia Coding Level of Care Code Est Pt Level 4 (23060) Diagnoses Generalized anxiety disorder with panic attacks F41.1; F41.0 ADHD F90.9 Fibromyalgia M79.7 Depression F32.A Additional Codes HARJEET-7 Assessment Billing - HARJEET-7 Assessment Tool: HARJEET-7 Assessment 66106 ([id number])
== END 2023-06-05 13:20 | disposition home or self-care (01) ==
PROVIDERS: PCP Nurse Practitioner Family; Visit Provider Nurse Practitioner Family
DX: F41.1 Generalized anxiety disorder (principal); F41.0 Panic disorder [episodic paroxysmal anxiety]; M79.7 Fibromyalgia; F33.9 Major depressive disorder, recurrent, unspecified
CPT/HCPCS: 96127; 99214

== ENCOUNTER 2023-06-15 08:19 | Day surgery (SDC) | payer OTHER, SELFPAY ==
[2023-06-15 08:30] VITALS: BMI 37.6
--- NOTE | 2023-06-15 08:41 | PC.NURSE ---
after needle injection patient started to feel dizzy. supined patient. applied cool cloth to forehead. patient di not pass out. 128/70 bp tried multiple times with the machine and it didnt give me a reading. manual bp taken.
--- NOTE | 2023-06-15 08:45 | PC.NURSE ---
patient sitting up eating crackers and drinking [place]. no longer pale. patient states she feels better. patient states larsen she sees needles she gets woozy.
--- NOTE | 2023-06-15 08:49 | PC.NURSE ---
sent a tiger connect to md calix to reevaluate patient prior to going in for her procedure. 96% 80hr left upp er arm sitting up. ate crackers and drank her [place]. 114/45
--- NOTE | 2023-06-15 08:51 | PC.NURSE ---
MS LIMON BY BEDSIDE REEVALUATING PATIENT. OK TO PROCEED.
--- NOTE | 2023-06-15 09:34 | MHC.SHP ---
Pre-Procedural Eval Section A Date of Service: 06/15/23 The patient is an INPATIENT: No Changes since office visit: No Cold of Flu in the past 2 weeks, No New Medical Problems, No Changes in Medication and No Patient answered all questions The History & Physical has been completed within 30 days and I have reviewed it.: Yes Section B Chief Complaint: Carpal tunnel syndrome, right upper limb Allergies: Allergies Allergy/AdvReac Type Severity Reaction Status Date / Time No Known Allergies Allergy Verified 06/05/23 11:53 Plan I have reviewed the history and physical and performed a pertinent physical examination on my patient. No changes have occurred unless specified. Time Spent With Patient Time: Total time managing care of this patient today ____ minutes.
--- NOTE | 2023-06-15 09:34 | W.PM.OPN ---
Operative Note Operative Note Date of Service: 06/15/23 Narrative: Preop diagnosis: 1. Right Carpal tunnel syndrome Postop diagnosis: same Procedure: 1. Right Carpal tunnel release Surgeon: Sindi Jaime MD Anesthesia: local block using 1% lidocaine with epinephrine Findings: Thickened transverse carpal ligament. EBL: Less than 5 mL Specimens: None Complications: None Disposition: Brought to recovery room in stable condition Plan: Follow-up for 10-14 days for wound check and suture removal Indications: The patient is 33 years old, with right carpal tunnel syndrome that has been unresponsive to nonoperative management. The risks and benefits of operative treatment including but not limited to risk of damage to blood vessels, nerves, tendons, infection, persistent pain, persistent symptoms, or possible need for additional surgery were discussed with the patient and the patient wishes to proceed with surgery. Procedure: Once consent was obtained a local block was performed using a combination of 1% lidocaine with epinephrine. The patient was then brought back to the operating suite and placed on the operative table in supine position. The right upper extremity was prepped and draped in a standard surgical fashion. Once assured that we had a good block, a 2.0 cm longitudinal incision was made centered over the carpal tunnel. The incision was made through the skin to the subcutaneous tissues using a #15 blade. Dissection was made down to the level of the transverse carpal ligament with care being taken to protect the palmar cutaneous nerve. Once the transverse carpal ligament was clearly visualized, a longitudinal incision was made in the transverse carpal ligament 1st using a #15 blade, then using tenotomy scissors under direct visualization. Care was taken to look for and protect the motor branch of the median nerve when seen in this area. Once satisfied with our carpal tunnel release the wound was copiously irrigated with normal saline and hemostasis was obtained with a brief period of local pressure. The skin edges were reapproximated with some 5.0 nylon suture material and a sterile dressing was applied. The patient appears to have tolerated the procedure well and with no complications. All digits were well vascularized at the conclusion of the case.
== END 2023-06-15 10:33 | disposition home or self-care (01) ==
PROVIDERS: PCP Nurse Practitioner Family; Visit Provider Orthopaedic Surgery
PROC: (CPT 64721; principal; 2023-06-15 09:40)
DX: G56.01 Carpal tunnel syndrome, right upper limb (principal); R20.0 Anesthesia of skin; M25.531 Pain in right wrist
CPT/HCPCS: 64721; J0171

== ENCOUNTER → 2023-06-15 08:19 | Outpatient (BNV) | payer OTHER, SELFPAY | PROVIDERS: PCP Nurse Practitioner Family; Visit Provider Orthopaedic Surgery | DX: G56.01 Carpal tunnel syndrome, right upper limb (principal) | CPT/HCPCS: 64721 ==

== ENCOUNTER 2023-06-28 09:45 | Outpatient (AMB) | payer OTHER, SELFPAY ==
--- NOTE | 2023-06-28 09:49 | A.OFFVIS_ITS ---
Intake Intake Visit Reasons: PO-Rt CTR 06/15/23 Intake Note: Jessica 33 year old female presents today for a post operative right CTR, DOS 06/15/23. Patient reports she is doing well, states pain at base of thumb and fingers that she describes as an electrical shock. She has stiffness in her middle finger. Allergies No Known Allergies Allergy (Verified 06/05/23 11:53) HPI PO-Rt CTR 06/15/23 HPI Details Jodi is a 33 year old right hand dominant woman who presents S/P right carpal tunnel release, DOS: 06/15/23. She says her sensation has been improving in her fingers, which she is happy about. She has left carpal tunnel syndrome, which she says is mildly bothersome for her. She has numbness occasionally in her left hand. [facility] Surgical History Tubal ligation status History of surgery on arm Hx of section Hx of appendectomy Family History Mother Heart disease Hypertension Brain tumor Diabetes Thyroid condition Father No problems noted. Daughter No problems noted. Son No problems noted. Son No problems noted. 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 Sutures removed and Steri-Strips applied She can make a fist and extend all her digits Sensation is normal to the tips of all digits of the right Cap refill is brisk EMG nerve conduction study: Impression: Mild to moderate compression palsy of the right median nerve at the wrist consistent with mild to moderate right carpal tunnel syndrome. Mild carpal tunnel syndrome of the left Normal EMG of the right C5-T1 innervated muscles Dr. Boyd 03/01/2023 Please see his report for additional information as necessary Psych Appearance: grossly normal Affect: normal affect Attitude: cooperative Assessment & Plan Assessment & Plan (1) Carpal tunnel syndrome, right: Code(s): G56.01 - Carpal tunnel syndrome, right upper limb (2) Carpal tunnel syndrome of left wrist: Code(s): G56.02 - Carpal tunnel syndrome, left upper limb Plan Assessment and plan: 1. Right carpal tunnel syndrome, S/P release DOS: 06/15/23 Pre-operatively with dense numbness Now with what she feels is normal sensation The patient appears to be doing well post-operatively I educated her about the post-operative course I explained the signs and symptoms of infection, if the patient develops any new or worsening erythema, drainage, pain, or warmth they should contact the clinic or attend the ED. I discussed activity modifications, she is to lift nothing heavier than a cellphone for the next two weeks She will perform gentle ROM exercises at home She should avoid any underwater activities for the next 5 days She should gently massage about the incision site to reduce the risk of hypersensitivity 2. Left carpal tunnel syndrome, mild More intermittent and occasional She will follow up prn to discuss treatment options. 3. Right middle finger pain Occasional No history of injury No locking or catching I educated her about this we talked about the importance of maintaining range of motion. This continues to be a problem we can consider radiographs a later date. Scribed for Sindi Jaime MD by Timothy Miguel, medical education specialist, on 06/28/23 at 10:20 AM, EST. Coding Level of Care Code Global (18118) Diagnoses Carpal tunnel syndrome, right G56.01 Carpal tunnel syndrome of left wrist G56.02
== END 2023-06-28 10:28 | disposition home or self-care (01) ==
PROVIDERS: PCP Nurse Practitioner Family; Visit Provider Orthopaedic Surgery
DX: G56.01 Carpal tunnel syndrome, right upper limb (principal); G56.02 Carpal tunnel syndrome, left upper limb
CPT/HCPCS: 99024

== ENCOUNTER → 2023-06-28 09:45 | Outpatient (BNVA) | payer OTHER, SELFPAY | PROVIDERS: PCP Nurse Practitioner Family; Visit Provider Physician Assistant ==

== ENCOUNTER 2023-07-19 13:45 | Outpatient (REF) | payer OTHER, SELFPAY ==
[2023-07-20 05:59] LABS: CT PCR NOT DETECTED (Not Detect.); NG PCR NOT DETECTED (Not Detect.)
[2023-07-20 13:08] LABS: BV Int Neg Control Negative (Negative); BV Int Pos Control Positive (Positive)
[2023-07-22 04:29] LABS: HPV mRNA E6/E7 rflx Not Detected (Not Detected)
== END 2023-07-19 13:46 | disposition home or self-care (01) ==
LOC: HO.LAB 13:45
PROVIDERS: PCP Nurse Practitioner Family; Visit Provider Advanced Practice Midwife
DX: Z01.419 Encounter for gynecological examination (general) (routine) without abnormal findings (principal); N89.8 Other specified noninflammatory disorders of vagina; E66.9 Obesity, unspecified; Z98.51 Tubal ligation status; Z87.718 Personal history of other specified (corrected) congenital malformations of genitourinary system; Z11.3 Encounter for screening for infections with a predominantly sexual mode of transmission; Z79.899 Other long term (current) drug therapy
CPT/HCPCS: 0353U; 87480; 87510; 87624; 87660; 88142

== ENCOUNTER 2023-07-19 13:45 | Outpatient (AMB) | payer OTHER, SELFPAY ==
[2023-07-19 14:16] VITALS: BP 122/68; BMI 39.3
--- NOTE | 2023-07-19 14:16 | MHC.OFFVIS ---
Intake Vital Signs 07/19/23 14:16 Height 5 ft 5 in Weight 236 lb BMI 39.3 BP 122/68 Intake Visit Reasons: [facility] STAFF PHARMACIST annual exam/PCP Ref Perinatal Social Worker Required: No Information Interpreted: clinical only Director Clinical Pharmacology: Director Clinical Pharmacology Present Allergies No Known Allergies Allergy (Verified 07/19/23 14:18) Medication List - Last Reconciled 07/19/23 by Trisha Huber CNM cyanocobalamin (vitamin B-12) 500 mcg PO DAILY 90 days escitalopram oxalate 10 mg PO DAILY gabapentin 800 mg PO TID Is last menstrual period known: Yes Last menstrual period: 06/20/23 Patient : No HPI MANAGER [facility] STAFF PHARMACIST annual exam/PCP Ref HPI Details 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 She had her tubes tied with the 2nd . Her children are aged 14-6. She does not exactly keep track of her periods and ovulation but she feels that she gets very heavy discharge when she does ovulate and she gets pain in her back that is different from the cramping with her periods. She is currently going to the weight management program and has lost 60 lb so far and is on track to have her bariatric surgery done in August. She has no worries about STDs and her of 17 years and she are actually going to make it official and get really on August 12 in [place] with all of their children. [facility] Surgical History (Updated 07/19/23 @ 15:02 by Trisha Huber CNM) Tubal ligation status History of surgery on arm Hx of section Hx of appendectomy Family History Mother Heart disease Hypertension Brain tumor Diabetes Thyroid condition Father No problems noted. Daughter No problems noted. Son No problems noted. Son No problems noted. 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 Cognitive needs: No Hearing needs: No Vision needs: Yes (glasses) Female Reproductive History Menstrual Age of Menarche: 13 Duration of menses: 6-7 days Date of last menstrual period: 06/20/23 control method: permanent sterilization Total pregnancies: 5 Full term: 3 Date of last pap smear: 08/19/16 (negative) History of abnormal pap smear: No Physical Exam Vital Signs: Last Vital Signs BP 122/68 07/19/23 14:16 BMI result Body Mass Index 39.3 Const General: healthy appearing, comfortable, no acute distress, well developed and alert Nutritional Appearance: average body habitus Orientation/consciousness: patient oriented x3 Limitations: no limitations HEENT Head: Yes normocephalic Neck Neck: Yes normal visual inspection Chest Chest palpation & inspection: normal inspection of the chest Breast/axilla inspection: normal inspection of the breasts and normal inspection of the axillae Breast/axilla palpation: normal palpation of the breasts and normal palpation of the axillae Resp Effort & Inspection: normal respiratory effort GI Inspection: Yes normal to inspection, No Abdominal wall edema and No distended Palpation (GI): Soft to palpation and nontender General: Yes bladder normal to palpation External Female Exam: normal external appearance and normal appearance of the urethra Speculum Exam - Vagina: normal appearance of the vagina, normal palpation and normal vaginal discharge Speculum Exam - Cervix: normal appearance of the cervix, normal palpation and nontender Bimanual exam- vagina & uterus: normal bimanual exam, normal palpation, uterine size normal, bladder normal to palpation, consistency normal, normal palpation, uterine mobility normal, uterine shape normal, No Cervical tenderness present, non-tender and no cervical motion tenderness Bimanual Exam- Adnexa, other: normal adnexae, no masses, normal and No adnexal tenderness Neuro General: patient oriented x3 Assessment & Plan Assessment & Plan (1) History of uterine anomaly: Comment: 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 Code(s): Z87.718 - Personal history of other specified (corrected) congenital malformations of genitourinary system (2) Well woman exam with routine gynecological exam: Code(s): Z01.419 - Encounter for gynecological examination (general) (routine) without abnormal findings (3) Tubal ligation status: Code(s): Z98.51 - Tubal ligation status (4) Obesity (BMI 30-39.9): Code(s): E66.9 - Obesity, unspecified Plan -----Discussed in this visit the following: healthy balanced diet, regular and consistent exercise, getting recommended health screens, doing the best she can for her particular health concerns, kegel exercises, pap smear screening and followup recommendations, mammography screening and SBE, normal changes in cycles in her life stage--- . Discussed her cycles and the symptoms she gets which may be all within normal limits. Discussed that the only way to really understand exactly what is going on is to actually keep track and write things down and then it is much easier to understand I did offer her an ultrasound but she is not interested and I could not find any special indication in any rate. She declines STI testing other than what was done during the exam to assess the discharge that she sometimes finds strong smelling. She says her periods have become a little bit more irregular since she gained weight after her last child She feels very happy about her weight loss so far and is looking forward to the surgery and to the wedding and enjoys her Sree with her daughter. Coding Level of Care Code New Pt Prev Care 18-39yr([id number] Diagnoses History of uterine anomaly Z87.718 Well woman exam with routine gynecological exam Z01.419 Tubal ligation status Z98.51 Obesity (BMI 30-39.9) E66.9
== END 2023-07-19 15:25 | disposition home or self-care (01) ==
PROVIDERS: PCP Nurse Practitioner Family; Visit Provider Advanced Practice Midwife
DX: Z01.419 Encounter for gynecological examination (general) (routine) without abnormal findings (principal); E66.9 Obesity, unspecified; Z68.39 Body mass index [BMI] 39.0-39.9, adult; Z98.51 Tubal ligation status
CPT/HCPCS: 99385

== ENCOUNTER 2023-09-08 10:30 | Outpatient (AMB) | payer OTHER, SELFPAY ==
[2023-09-08 10:35] VITALS: BP 120/68; BMI 40.3
--- NOTE | 2023-09-08 10:35 | A.OFFVIS_ITS ---
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 Her last Pap smear came back inadequate because of obscuring mucus so discussed the possibility that it was midcycle when it was done hopefully that will be avoided today. Patient has history of 2 previous C-sections. [facility] Surgical History Tubal ligation status History of surgery on arm Hx of section Hx of appendectomy Family History Mother Heart disease Hypertension Brain tumor Diabetes Thyroid condition Father No problems noted. Daughter No problems noted. Son No problems noted. Son No problems noted. 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 Discussed that if this Pap smear is again read as inadequate while I can not find any reason why that would be the case I would have her see Dr. Mccauley for the next attempt. Discussed that possibly her history accounts for the cervix being so anterior from scar tissue External Female Exam: normal external appearance and normal appearance of the urethra Speculum Exam - Vagina: normal appearance of the vagina and normal vaginal discharge Speculum Exam - Cervix: normal appearance of the cervix and Cervical os closed Results Reviewed Results Reviewed: Name: Jodi Santizo Age/Sex: 33/F Attending: Trisha Huber CNM : 1990 Submitted by: Trisha Huber CNM Copies to: Shannon Duque MR #: [id number] Status: DEP REF Collected: 07/19/23 Location: .LAB Received: 07/20/23 Interpretation Unsatisfactory. Obscuring mucus. Scant cellularity. HPV mRNA E6/E7: NOT DETECTED This assay detects E6/E7 viral messenger RNA (mRNA) from 14 high-risk HPV types (16, 18, 31, 33, 35, 39, 45, 51, 52, 56, 58, 59, 66, 68) HPV testing performed by [facility], [place], [place]. See reference laboratory portion of the EMR for entire report. Clinical Information LMP: 06/20/23 Previous PAP test: 2017, WNL Material Received ThinPrep-Cervical Copies To Shannon Duque [address] [place] [id number] [email or web address] Trisha Huber CNM [address] [place] [address] [place] [address] Electronically Signed By: SAUL Jerry (ASC) 07/24/23 1749 The Pap Test is a screening procedure with the inherent possibility of both false negative and false positive results. Results should be interpreted in the context of historic and current clinical findings. Reliability of the Pap Test is enhanced by performing the test on a regular repetitive basis. Patient: Jodi Santizo Age/Sex: 33/F MR#: [id number] Page 1 of 1 Assessment & Plan Assessment & Plan (1) Cervical cancer screening: Comment: 07/19/2023 Pap is unsatisfactory secondary to obscuring mucus and scant cellularity, with negative HPV. Needs repeat.; Pap smear repeated today on day 9 of cycle post menses cervix extremely anterior challenging to visualize today, Code(s): Z12.4 - Encounter for screening for malignant neoplasm of cervix (2) Tubal ligation status: Code(s): Z98.51 - Tubal ligation status (3) Hx of section: Comment: X2 Code(s): Z98.891 - History of uterine scar from previous surgery Plan Angeli smear was repeated today on day 9 of her cycle her cervix was challenging to visualize with increased adipose and it is extreme anterior position. (possibly related to scar tissue from 2 previous C-sections) Coding Level of Care Code Est Pt Level 3 (18482) Diagnoses Cervical cancer screening Z12.4 Tubal ligation status Z98.51 Hx of section Z98.891
== END 2023-09-08 11:14 | disposition home or self-care (01) ==
LOC: HO.HWSM 10:30
PROVIDERS: PCP Nurse Practitioner Family; Visit Provider Advanced Practice Midwife
DX: Z12.4 Encounter for screening for malignant neoplasm of cervix (principal); Z98.51 Tubal ligation status; Z98.891 History of uterine scar from previous surgery
CPT/HCPCS: 99213

== ENCOUNTER 2023-09-08 10:30 | Outpatient (REF) | payer OTHER, SELFPAY ==
[2023-09-15 05:29] LABS: HPV mRNA E6/E7 rflx Not Detected (Not Detected)
== END 2023-09-08 10:31 | disposition home or self-care (01) ==
LOC: HO.LNP 10:30
PROVIDERS: PCP Nurse Practitioner Family; Visit Provider Advanced Practice Midwife
DX: Z11.51 Encounter for screening for human papillomavirus (HPV) (principal); Z12.4 Encounter for screening for malignant neoplasm of cervix; R87.615 Unsatisfactory cytologic smear of cervix
CPT/HCPCS: 87624; 88142; 99212

== ENCOUNTER 2023-09-15 08:49 | Outpatient (AMB) | payer OTHER, SELFPAY ==
--- NOTE | 2023-09-15 08:55 | MHC.OFFVISWM ---
Intake VS Expanded 09/15/23 09:00 BP 133/66 Blood Pressure Location Rt brachial Blood Pressure Position Sitting Pulse 93 Pulse Source Pulse Oximeter Temp 97.0 F Temperature Source Tympanic Pulse Oximetry 93 Oxygen Delivery Method Room Air Height 5 ft 5 in Weight 240 lb BMI 39.9 Body Fat % 43.3 Body Fat Mass 103.8 Fat Free Mass 136.0 Visceral Fat Rating 11.0 Body Water % 40.6 Body Water Mass 97.4 Muscle Mass/Score 129.2 Basal Metabolic Rate/Score 1,919 Intake Visit Reasons: (OV) F/U SWL [employer] Bi Consultant Required: No Allergies No Known Allergies Allergy (Verified 09/15/23 09:05) Medication List - Last Reconciled 09/15/23 by AWAIS Reddy cyanocobalamin (vitamin B-12) 500 mcg PO DAILY 90 days escitalopram oxalate 10 mg PO DAILY gabapentin 800 mg PO TID HPI HPI Comments History of Present Illness Details The patient is a pleasant 33 year old female who returns to the clinic for pre-operative surgical weight loss management. They were last seen in the office on 04/25/23, recorded weight at that time was 227 pounds, with a BMI of 37.8. Today's weight is 240 pounds and BMI is 39.9. There has been a weight loss of .6 pounds since initiating the surgical weight loss program on 01/03/23 with a total body weight loss of 0.2 %. Pre op work up completed as follows: SWL classes:? 11/19 BH appts: missed f/u 02/10/23, needs f/u ? ? RD appts: cleared 03/02/23 Labs: 01/11/23-low D, B12:318 H. pylori: 01/11/23-neg CXR: 01/11/23-nad EK01/11/23-normal ABD U/S: 03/09/23-fatty liver UGI: 04/10/23-gerd The patient reports she was in [place] to help her sister who was in a MVA. She then came back to [facility], returned to [place] to get and has now returned again. She states that she is committed to her health and to weight loss at this time and is willing to restart the program. States she started a plan 2 weeks ago using premier protein and zone perfect bars. Current meal plan includes: 3 Pure Protein shakes, (1/2 scoop in 8 oz low fat unsweetened almond milk each) First shake at 630am-830am Second shake at? 1030am-1230pm 1 protein bar (Zone Macro bars at [employer], [employer], [employer] or [employer]) at 230pm-430pm. Dinner at 7pm (8 forks of protein and 8 forks of salad/vegetables). Another shake with 1/2 scoop in 8 oz unsweetened almond milk at 8pm-10pm. Drinking 48-64 oz of water Current exercise plan includes: joined PF. [facility] Surgical History Tubal ligation status History of surgery on arm Hx of section Hx of appendectomy Family History Mother Heart disease Hypertension Brain tumor Diabetes Thyroid condition Father No problems noted. Daughter No problems noted. Son No problems noted. Son No problems noted. 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 Cognitive needs: No Hearing needs: No Vision needs: Yes (glasses) Female Reproductive History Menstrual Age of Menarche: 13 Review of Systems Const All systems reviewed & are unremarkable except as noted in HPI and below Physical Exam Const General: healthy appearing and no acute distress Resp Effort & Inspection: normal respiratory effort Auscultation: clear to auscultation bilaterally Cardio Rate: regular rate Rhythm: regular rhythm GI Auscultation: normal bowel sounds Extrem General: Yes normal to inspection Assessment & Plan Assessment & Plan (1) Morbid obesity: Code(s): E66.01 - Morbid (severe) obesity due to excess calories Plan: Patient states that she is now recommended to her health and the program. We will change the meal plan: 3 Premier Protein shakes, (1 scoop in 8 oz low fat unsweetened almond milk each) First shake at 630am-830am Second shake at? 1030am-1230pm 1 protein bar (Zone Macro bars at [employer], [employer], [employer] or [employer]) at 230pm-430pm. Dinner at 7pm (7 forks of protein and 7 forks of salad/vegetables). Another shake at 8pm-10pm. She states that she has joined [employer] and intends to go 5 days per week, we discussed a goal of 400 calories burned per session. In addition, she was encouraged to text her weight weekly. Return to clinic in 3 weeks. Coding Level of Care Code Est Pt Level 3 (76965) Diagnoses Morbid obesity E66.01
[2023-09-15 09:00] VITALS: BP 133/66; PULSE 93; TEMP 36.1; O2SAT 93; BMI 39.9
== END 2023-09-15 09:16 | disposition home or self-care (01) ==
PROVIDERS: PCP Nurse Practitioner Family; Visit Provider Physician Assistant Surgical
DX: E66.01 Morbid (severe) obesity due to excess calories (principal); Z68.39 Body mass index [BMI] 39.0-39.9, adult
CPT/HCPCS: 99213

== ENCOUNTER → 2023-09-15 08:49 | Outpatient (BNVA) | payer OTHER, SELFPAY | PROVIDERS: PCP Nurse Practitioner Family; Visit Provider Physician Assistant Surgical | DX: E66.01 Morbid (severe) obesity due to excess calories (principal); Z68.39 Body mass index [BMI] 39.0-39.9, adult | CPT/HCPCS: 99212 ==

== ENCOUNTER 2023-10-10 08:52 | Outpatient (AMB) | payer OTHER, SELFPAY ==
--- NOTE | 2023-10-10 08:31 | A.OFFVIS_ITS ---
Intake VS Expanded 10/10/23 08:41 Height 5 ft 5 in Weight 228 lb 3.2 oz BMI 38.0 Body Fat % 48.4 Body Fat Mass 110.4 Fat Free Mass 117.7 Visceral Fat Rating 19.5 Body Water % 35.4 Body Water Mass 80.9 Muscle Mass/Score 110.7 Basal Metabolic Rate/Score 1,524 Intake Visit Reasons: (TV) F/U SWL Docent Coordinator Required: No Allergies No Known Allergies Allergy (Verified 09/15/23 09:05) Medication List - Last Reconciled 10/10/23 by AWAIS Reddy cyanocobalamin (vitamin B-12) 500 mcg PO DAILY 90 days escitalopram oxalate 10 mg PO DAILY gabapentin 800 mg PO TID HPI HPI Comments History of Present Illness Details The patient is a pleasant 33 year old female who returns to the clinic for pre-operative surgical weight loss management. They were last seen in the office on 09/15/23, recorded weight at that time was 240 pounds, with a BMI of 39.9. Today's weight is 228.2 pounds and BMI is 38. There has been a weight loss of 12.4 pounds since initiating the surgical weight loss program on 01/03/23 with a total body weight loss of 5.1 %. Pre op work up completed as follows: SWL classes:? 03/21 BH appts: missed f/u 02/10/23, f/u 06/08/23, missed ? ? RD appts: cleared 03/02/23 Labs: 01/11/23-low D, B12:318 H. pylori: 01/11/23-neg CXR: 01/11/23-nad EK01/11/23-normal ABD U/S: 03/09/23-fatty liver UGI: 04/10/23-gerd The patient reports she was in [place] to help her sister who was in a MVA. She then came back to [facility], she has been going to the gym. Current meal plan includes: 3 Premier Protein shakes, (1 scoop in 8 oz low fat unsweetened almond milk each) First shake at 630am-830am Second shake at? 1030am-1230pm 1 protein bar ([employer] Macro bars) at 230pm -430pm. Dinner at 7pm (7 forks of protein and 7 forks of salad/vegetables). Another shake at 8pm-10pm. Drinking 50 oz of water Current exercise plan includes: joined PF. treadmill and bike, 300-400 calories, 5 days per week [facility] Surgical History Tubal ligation status History of surgery on arm Hx of section Hx of appendectomy Family History Mother Heart disease Hypertension Brain tumor Diabetes Thyroid condition Father No problems noted. Daughter No problems noted. Son No problems noted. Son No problems noted. 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 She is lost 12 lb in the last month. She was encouraged to increase her exercise to a goal of 400 calories burned, 5 days per week for an ultimate goal of 2000 calories burn per week or more. Change meal plans slightly: 3 Premier Protein shakes, (1 scoop in 8 oz low fat unsweetened almond milk each) First shake at 630am-830am Second shake at? 1030am-1230pm 1 protein bar (Zone Macro bars) at 230pm-430pm. Dinner at 7pm (7 forks of protein and 7 forks of salad/vegetables). Another shake 1/2 scoop at 8pm-10pm Will arrange for follow-up with Behavioral Health and return to see me in approximately 3-4 weeks. Encouraged to text weekly with her weight and if she has any questions. Telehealth Telehealth Location of provider rendering services: practice address Location of patient: address on file Patient Identification confirmed using: Name, : Yes Telehealth method: voice only Patient verbally consented to treatment: Yes Patient verbally consented to billing insurance company: Yes Patient informed of any privacy concerns related to visit: Yes Minutes spent on Phone/Video with Pt.: 15 Coding Level of Care Code Tele Est Pt Level 3 (48847) Diagnoses Obesity (BMI 30-39.9) E66.9 Time Spent (min) 20
[2023-10-10 08:41] VITALS: BMI 38.0
== END 2023-10-10 09:02 | disposition home or self-care (01) ==
LOC: HO.HBS 08:52
PROVIDERS: PCP Nurse Practitioner Family; Visit Provider Physician Assistant Surgical
DX: E66.9 Obesity, unspecified (principal)
CPT/HCPCS: 99213

== ENCOUNTER → 2023-10-10 08:52 | Outpatient (BNVA) | payer OTHER, SELFPAY | PROVIDERS: PCP Nurse Practitioner Family; Visit Provider Physician Assistant Surgical ==

== ENCOUNTER 2023-10-14 07:25 | Outpatient (REF) | payer OTHER, SELFPAY ==
[2023-10-14 09:08] LABS: HCG Quantitative < 2 mIU/mL
== END 2023-10-14 07:26 | disposition home or self-care (01) ==
LOC: HO.LAB 07:25
PROVIDERS: Visit Provider Advanced Practice Midwife
DX: N92.6 Irregular menstruation, unspecified (principal); Z98.51 Tubal ligation status
CPT/HCPCS: 36415; 84702

== ENCOUNTER 2023-11-10 10:53 | Outpatient (AMB) | payer OTHER, SELFPAY ==
--- NOTE | 2023-11-10 09:33 | A.OFFVIS_ITS ---
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 They were last seen in the office on 10/10/23, recorded weight at that time was 228.2 pounds and BMI is 38. Today's weight is 223.2 pounds and BMI is 37.1. There has been a weight loss of 17.4 pounds since initiating the surgical weight loss program on 01/03/23 with a total body weight loss of 7.2 %. Pre op work up completed as follows: SWL classes:? 03/21 BH appts: missed f/u 02/10/23, f/u 06/08/23, missed, needs f/u ? ? RD appts: cleared 03/02/23 Labs: 01/11/23-low D, B12:318 H. pylori: 01/11/23-neg CXR: 01/11/23-nad EK01/11/23-normal ABD U/S: 03/09/23-fatty liver UGI: 04/10/23-gerd The patient reports she has been helping her sister who has come to the [place] to help her. She has two jobs now to help with expenses. She is having difficulty going to the gym due to extra work. Current meal plan includes: 3 Premier Protein shakes, (1 scoop in 8 oz low fat unsweetened almond milk each) First shake at 630am-830am Second shake at? 1030am-1230pm 1 protein bar (Zone Macro bars) at 230pm -430pm. Dinner at 7pm (7 forks of protein and 7 forks of salad/vegetables). Another shake 1/2 scoop at 8pm-10pm Drinking 50 oz of water Current exercise plan includes: joined PF. treadmill and bike, 300-400 calories, previously 5 days, she is thinking of buying a stationary bike at home. PFS Surgical History Tubal ligation status History of surgery on arm Hx of section Hx of appendectomy Family History Mother Heart disease Hypertension Brain tumor Diabetes Thyroid condition Father No problems noted. Daughter No problems noted. Son No problems noted. Son No problems noted. 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 She has had to take on an additional job to help pay for expenses to help for her sister who was in an accident. She states that she wants to continue in the program and is planning on buying a stationary bike for home use. We will have the behavioral health therapist call her to schedule follow-up appointment. Change meal plans slightly 3 Premier Protein shakes, (1 scoop in 8 oz low fat unsweetened almond milk in first shake) First shake at 630am-830am Second shake 1/2 scoop at? 1030am-1230pm 1 protein bar (Zone Macro bars) at 230pm-430pm. Dinner at 7pm (7 forks of protein and 7 forks of salad/vegetables). Another shake 1/2 scoop at 8pm-10pm We will refer to Dr. Tan for continued preoperative care. Encouraged to text weekly and call with any questions or concerns regarding stationary bike. Telehealth Telehealth Location of provider rendering services: practice address Location of patient: other Patient Identification confirmed using: Name, : Yes Telehealth method: voice only Patient verbally consented to treatment: Yes Patient verbally consented to billing insurance company: Yes Patient informed of any privacy concerns related to visit: Yes Minutes spent on Phone/Video with Pt.: 12 Coding Level of Care Code Tele Est Pt Level 3 (55177) Diagnoses Obesity (BMI 30-39.9) E66.9 Time Spent (min) 18
[2023-11-10 09:34] VITALS: BMI 37.1
== END 2023-11-10 10:58 | disposition home or self-care (01) ==
LOC: HO.HBS 10:53
PROVIDERS: PCP Nurse Practitioner Family; Visit Provider Physician Assistant Surgical
DX: E66.9 Obesity, unspecified (principal)
CPT/HCPCS: 99213

== ENCOUNTER → 2023-11-10 10:53 | Outpatient (BNVA) | payer OTHER, SELFPAY | PROVIDERS: PCP Nurse Practitioner Family; Visit Provider Physician Assistant Surgical ==

== ENCOUNTER 2023-12-06 10:27 | Outpatient (AMB) | payer OTHER, SELFPAY ==
--- NOTE | 2023-12-06 10:30 | A.OFFWM_ITS ---
Intake Intake Visit Reasons: VIDEO BH F/U Allergies No Known Allergies Allergy (Verified 09/15/23 09:05) PFSH Surgical History Tubal ligation status History of surgery on arm Hx of section Hx of appendectomy Family History Mother Heart disease Hypertension Brain tumor Diabetes Thyroid condition Father No problems noted. Daughter No problems noted. Son No problems noted. Son No problems noted. 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 She reported feeling generally stable and was keen on discussing her ongoing issues and updates regarding her health and mental state. During today's session, she expressed a calm and euthymic mood and was articulate about her experiences and feelings. We revisited the PHQ-9 to assess her current mental health status, and she shared her recent stressful events and shared her weight management goals. Her speech was normal in rate and volume, and her affect was congruent with her stated mood. Behaviorally, she was appropriate, self-reflective, and assertive throughout the session. There were no signs of distress or dysfunction in her presentation. PHQ-9 score was administered and scores showed no active Sx or concerns around depression. No risk factors for harm to self or others were identified during the session. The client is progressing well in her WMP- treatment plan, She continues to manage her stress effectively and is taking significant steps towards her health goals, including her upcoming bariatric surgery. The client's mental status exam revealed no immediate concerns, and her engagement and self-reflection suggest a positive prognosis. It is also important to note that the Pt has been cleared for surgery and will be seen 4-8 weeks post-bariatric surgery for support. Presenting Concerns Referral Source WMP-Provider. PT sees Eduin ERNANDEZ. Reason for referral BH clearance as part of process for weight-loss surgery. Precipitating Event Obesity, fibromyalgia, neuropathy. Living Situation Current Living Situation Rent At risk of losing current housing? No Satisfied with current living situation? Yes Comments Pt lives with 3 children, , her sister and niece. Pt is in the process of buying a house. Food/Weight/Diet Expectations of change She started the program last year at around 260Lbs, and currently she weight 222Lbs. she has lost most of the 10% target loss before surgery and has been referred to see the surgeon. Her goal continues to have a healthy life. She hopes to reach a healthy weight. History/Relationship with food After she quit smocking in 2016 she started eating as a way to replace nicotine. She was 240Lbs and end up at 296Lbs in 2020, then she decided to start diet. She used to skip breakfast and lunch, for dinner, she had 1 big meal a day (rice, protein, beans, salad. Usually quick meals). She drinks coffee through the day. When anxious she tends to snack a lot. As a child, she was a picky eater but as an adult, she liked a variety of foods. UPDATE: PT has been following the meal plan advised by the provider and doing well with that. History/Relationship with weight She had a healthy weight as a child. her average weight was 120-140Lbs pre-. Gained more weight after last , and after that is when weight got out of control. History/Relationship with dieting Keto diet in 2020, lost 56Lbs. WMP since 2022. She has a gym membership and also a bike at home. Tries to exercise 4-5 times at week. Binge Eating Do you frequently eat large amounts of food in short periods of time, not feeling physically hungry? No Do you feel out of control when you eat a large amount of food in a short period of time? No Do you eat large amounts of food rapidly and typically alone? No Night Eating Do you wake up at least once during the night to eat? No If you wake up in the night, do you find that it is necessary to eat something in order to fall back asleep? No Do you have little or no appetite in the morning and feel very hungry in the evening, often overeating between dinner and when you go to bed? No Social History Family history and relationship PT in July with the children's mecca busby, They have been together for 17 years. Dad lives in [place]. Mom lives in [place]. She has 6 siblings. She's close to 2 of them. 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 Developmental history and status diagnosed with ADHD as a child. Has not been in medication for over 16 years. Social support Mother, children. Community support None. Jain/Spirituality Nondenominational. Attend zoroastrian every Monday. Cultural/Ethnic information PT was born in [place]. Moved to [place] in 2006. Legal Involvement and History Current or historical involvement with the legal system? None reported. Education Highest grade completed Bachelors degree. Preferred learning style Auditory, Verbal, Written, Learn by doing and Visual Currently enrolled in educational program? No Interested in further educational program? No Educational Interests/Skills Art, music, helping people, social work. 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 ) Wants help to find employment? No Meaningful activities Arts, craft. Financial Situation Describe current financial situation Comfortable and Occasional struggle Financial assistance? None Service Service? No Mental Health and Addiction Treatment Current/Past substance abuse? Yes Comments Hx of use nicottine. Quit 5 years ago. Current/Past addictive behavior concerns? No Psychiatric history Never been in counseling. In July, she had panic attacks and was dealing with increased stress. she was prescribed Escitalopram by her PCP but she only used 3 times. Never hospitalized for Mental health. Denies any hx of SI or self-harm. Medical and Physical Health Summary Additional Medical History not covered in history None reported. Sexual History concerns None reported Physical exam in the last year? Yes Pain Screening Current pain? No Pain in the last few months? Yes Medications Is the patient compliant with medications? Yes Does the patient have Lockett Guardian in place? Not applicable Does the patient use complimentary health approaches? No Trauma/Abuse History History of trauma? No Questionnaires PHQ-9 Over the last 2 weeks, how often have you been bothered by any of the following problems? 1. Little interest or pleasure in doing things: not at all 2. Feeling down, depressed, or hopeless: not at all 3. Trouble falling or staying asleep, or sleeping too much: not at all 4. Feeling tired or having little energy: several days 5. Poor appetite or overeating: not at all 6. Feeling bad about yourself - or that you are a failure or have let yourself or your family down: not at all 7. Trouble concentrating on things, such as reading the newspaper or watching television: not at all 8. Moving or speaking so slowly that other people could have noticed. Or the opposite - being so fidgety or restless that you have been moving around a lot more than usual: not at all 9. Thoughts that you would be better off or of hurting yourself in some way: not at all Total score: 1 Depression Screening Interpretation: Negative Depression Screening Done: Yes 34418 - PHQ-9 Billing: Yes Source: Developed by Drs. Joss Vyas, Opal Hall, Sajan Hernandez and colleagues, with an educational binh from [employer]. Assessment & Plan Assessment & Plan (1) Adjustment disorder: Code(s): F43.20 - Adjustment disorder, unspecified Qualifiers: Adjustment disorder type: with anxious mood Qualified Code(s): F43.22 - Adjustment disorder with anxiety Plan PT is cleared from behavioral health standpoint. The next appointment will be scheduled according to her recovery timeline, ideally between 4 to 8 weeks after her surgery. During this period, additional support from a dietitian and/or WMP-provider may also be recommended to aid her in adjusting to new needs. The client has been encouraged to maintain her self- reflective practices and utilize stress management strategies that have been effective for her. Telehealth Telehealth Telehealth Platform: [employer] Location of provider rendering services: other (Home office. [place], [place]) Location of patient: other (Work. [place], [place]) Patient Identification confirmed using: Name, : Yes Telehealth method: voice only Patient verbally consented to treatment: Yes Patient verbally consented to billing insurance company: Yes Patient informed of any privacy concerns related to visit: No Minutes spent on Phone/Video with Pt.: 60 Coding Level of Care Code Established Pt Tele Psytx >53 mins (35141) Patient Type Established Diagnoses Adjustment disorder with anxious mood F43.22 Adjustment disorder type: with anxious mood Time Spent (min) 60
== END 2023-12-06 12:44 | disposition home or self-care (01) ==
LOC: HO.HBST 10:27
PROVIDERS: PCP Nurse Practitioner Family; Visit Provider Counselor Mental Health
DX: F43.22 Adjustment disorder with anxiety (principal)
CPT/HCPCS: 90837

== ENCOUNTER → 2023-12-06 10:27 | Outpatient (BNVA) | payer OTHER, SELFPAY | PROVIDERS: PCP Nurse Practitioner Family; Visit Provider Counselor Mental Health ==

== ENCOUNTER 2023-12-25 13:56 | Outpatient (AMB) | payer OTHER, SELFPAY ==
--- NOTE | 2023-12-25 14:20 | A.OFFVIS_ITS ---
VS Expanded 12/25/23 14:38 Height 5 ft 5 in Weight 219 lb BMI 36.4 Intake Visit Reasons: TV Consult/Transfer Jose Allergies No Known Allergies Allergy (Verified 12/25/23 14:20) Medication List - Last Reconciled 12/25/23 by Clive Tan MD cyanocobalamin (vitamin B-12) 500 mcg PO DAILY 90 days gabapentin 800 mg PO TID HPI HPI TV Consult/Transfer Jose: Details: Start time: 2.02pm, End time: 2.42pm ?I spent 35 minutes speaking with the patient on the phone plus an additional 5 minutes reviewing and updating records for a total of 40 minutes HPI Comments Details: Overall weight loss: 21lbs, or 8.75% TBWL Is doing 2 Premier protein shakes (1 scoop in 8oz almond milk), one Zone Perfect protein bar and one meal (7 forks of protein and 7 forks of salad or vegetables) Exercise: is doing a stationary bike at home 6 days per week for 300-320 calories PFSH Surgical History (Updated 12/25/23 @ 14:24 by Clive Tan MD) H/O carpal tunnel repair Tubal ligation status History of surgery on arm Hx of section Hx of appendectomy Family History Mother Heart disease Hypertension Brain tumor Diabetes Thyroid condition Father No problems noted. Daughter No problems noted. Son No problems noted. Son No problems noted. 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 Cognitive needs: No Hearing needs: No Vision needs: Yes (glasses) Female Reproductive History Menstrual Age of Menarche: 13 Telehealth Telehealth Telehealth Platform: Telephone Location of provider rendering services: practice address Location of patient: address on file Patient Identification confirmed using: Name, : Yes Telehealth method: voice only Patient verbally consented to treatment: Yes Patient verbally consented to billing insurance company: Yes Patient informed of any privacy concerns related to visit: Yes Minutes spent on Phone/Video with Pt.: 40 Assessment & Plan Assessment & Plan (1) Obesity (BMI 30-39.9): Code(s): E66.9 - Obesity, unspecified Category: Medical Plan: 1. Plan for lap sleeve gastrectomy including upper GI endoscopy. All tests has been completed and reviewed and the patient is cleared for the surgery. ?If d iaphragmatic or ventral hernias are present at time of surgery, these will be repaired laparoscopically as well. Risks and complications were discussed in detail including possible conversion to an open procedure, anastomotic leak, bleeding requiring transfusion, small bowel obstruction, , DVT and pulmonary embolism, cardiac, or pulmonary complications, as rodent exterminator complications such as anastomotic ulcer, insufficient weight loss and vitamin deficiencies. I emphasized the importance of close follow-up, adherence to instructions and good communication. So far she has proven to be an excellent communicator and very compliant with all our directions accomplishing a great weight loss. I believe that she is an excellent candidate and she is ready. 2. The patient participated in a structured preoperative lifestyle intervention program supervised by a physician the 12 months preceding the surgical procedure. The lifestyle intervention included a structured nutritional plan wi th a specific daily protein intake goal, an exercise plan with a 2000 calorie burn weekly goal, weekly behavior modification guidance and completion of eight 1-hour online nutritional classes and passing successfully the corresponding quizzes. Adherence to preoperative care plan was demonstrated by completing an extensive preoperative work-up. Program participation was demonstrated by completing 8 visits with our medical team and by sharing weekly weight measurements weekly for 7 consecutive months via an approved body composition scale. Compliance to the lifestyle intervention was demonstrated by achieving a 21lbs weight-loss or 8.75% total body weight loss (TBWL). No medications were used to achieve this weight loss. In our published experience an over 7% preoperative TBWL, achieved by meeting the diet and exercise goals of our program improves surgical outcomes, reduces the potential for surgical complications, and predicts a statistically significant higher weight loss up to 6 years postoperatively. 3. Continue same nutritional plan of 2 Premier protein shakes (1 scoop in 8oz almond milk), one Zone Perfect protein bar and one meal (7 forks of protein and 7 forks of salad or vegetables) 4. Exercise: continue the stationary bike at home 6 days per week for 300-320 calories. You could split the work-out to two sessions per day of 175 calories each 5. Send me weight measurements weekly Medications: New iron,carbonyl-vitamin C 65 mg iron- 125 mg (Vitron-C) swallow whole; do not chew/break/dissolve/open 1 tab PO DAILY 90 tabs 0RF D64.9 - Anemia, unspecified
[2023-12-25 14:38] VITALS: BMI 36.4
== END 2023-12-25 14:42 | disposition home or self-care (01) ==
LOC: HO.HBS 13:56
PROVIDERS: PCP Nurse Practitioner Family; Visit Provider Surgery
DX: E66.9 Obesity, unspecified (principal)
CPT/HCPCS: 99214

== ENCOUNTER → 2023-12-25 13:56 | Outpatient (BNVA) | payer OTHER, SELFPAY | PROVIDERS: PCP Nurse Practitioner Family; Visit Provider Surgery ==

== ENCOUNTER → 2024-01-12 07:59 | Outpatient (BNVA) | payer OTHER, SELFPAY | PROVIDERS: PCP Nurse Practitioner Family; Visit Provider Surgery | DX: E66.9 Obesity, unspecified (principal); Z68.36 Body mass index [BMI] 36.0-36.9, adult; K21.9 Gastro-esophageal reflux disease without esophagitis; R11.0 Nausea; Z01.818 Encounter for other preprocedural examination ==

== ENCOUNTER → 2024-01-12 07:59 | Outpatient (AMB) | payer OTHER, SELFPAY ==
[2024-01-12 07:55] VITALS: BMI 36.3
--- NOTE | 2024-01-12 07:55 | MHC.OFFVISWM ---
VS Expanded 01/12/24 07:55 Height 5 ft 5 in Weight 218 lb 6 oz BMI 36.3 Body Fat % 45.9 Body Fat Mass 100.3 Fat Free Mass 118.4 Visceral Fat Rating 18.1 Body Water % 37.1 Body Water Mass 81.1 Basal Metabolic Rate/Score 529 Intake Visit Reasons: TV Pre Op LSG 01/25/24 Allergies No Known Allergies Allergy (Verified 01/12/24 07:59) Medication List - Last Reconciled 01/12/24 by Clive Tan MD cyanocobalamin (vitamin B-12) 500 mcg PO DAILY 90 days gabapentin 800 mg PO TID iron,carbonyl-vitamin C 65 mg iron- 125 mg (Vitron-C) 1 tab PO DAILY ondansetron 4 mg PO Q12H pantoprazole 40 mg PO DAILY polyethylene glycol 3350 17 grams PO DAILY sucralfate 10 mL PO BID HPI HPI TV Pre Op LSG 01/25/24: Details: Start time: 8.00am, End time: ?I spent 15 minutes speaking with the patient on the phone plus an additional 5 minutes reviewing and updating records for a total of 20 minutes HPI Comments Details: Overall weight loss: 21.4lbs, or 8.92% TBWL Is doing 2 Premier protein shakes (1 scoop in 8oz almond milk), one Zone Perfect protein bar and one meal (7 forks of protein and 7 forks of salad or vegetables) Exercise: is doing a stationary bike at home 6 days per week for 300-320 calories PFSH Surgical History (Updated 12/25/23 @ 14:24 by Clive Tan MD) H/O carpal tunnel repair Tubal ligation status History of surgery on arm Hx of section Hx of appendectomy Family History Mother Heart disease Hypertension Brain tumor Diabetes Thyroid condition Father No problems noted. Daughter No problems noted. Son No problems noted. Son No problems noted. 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 Cognitive needs: No Hearing needs: No Vision needs: Yes (glasses) Female Reproductive History Menstrual Age of Menarche: 13 Physical Exam Vital Signs: BMI result Body Mass Index 36.3 Telehealth Telehealth Telehealth Platform: Telephone Location of provider rendering services: practice address Location of patient: address on file Patient Identification confirmed using: Name, : Yes Telehealth method: voice only Patient verbally consented to treatment: Yes Patient verbally consented to billing insurance company: Yes Patient informed of any privacy concerns related to visit: Yes Minutes spent on Phone/Video with Pt.: 30 Assessment & Plan Assessment & Plan (1) Obesity: Code(s): E66.9 - Obesity, unspecified Category: Medical Qualifiers: Body mass index: BMI 36.0-36.9 Obesity classification: adult class 2 (BMI 35 - 39.9) Obesity type: due to excess calories Serious obesity comorbidity presence: with serious comorbidity Qualified Code(s): E66.01 - Morbid (severe) obesity due to excess calories; Z68.36 - Body mass index [BMI] 36.0-36.9, adult Plan: 1. Plan for lap sleeve gastrectomy including upper GI endoscopy. All tests has been completed and reviewed and the patient is cleared for the surgery. ?If diaphragmatic or ventral hernias are present at time of surgery, these will be repaired laparoscopically as well. Risks and complications were discussed in detail including possible conversion to an open procedure, anastomotic leak, bleeding requiring transfusion, small bowel obstruction, , DVT and pulmonary embolism, cardiac, or pulmonary complications, as buttermaker helper complications such as anastomotic ulcer, insufficient weight loss and vitamin deficiencies. I emphasized the importance of close follow-up, adherence to instructions and good communication. So far she has proven to be an excellent communicator and very compliant with all our directions accomplishing a great weight loss. I believe that she is an excellent candidate and she is ready. 2. Preop prescriptions were provided and explained the purpose of each one. Need to be purchased preop. Start Pantoprazole now as you get it from the pharmacy, 1 pill per day. Sucralfate and Zofran are for after surgery as needed. 3. Bowel prep: please do 7 packets ?of Miralax mixing each one with a an 8oz glass of water, crystal light, gatorade zero, or propel ?on 01/23/24 and the same amount on 01/24/24. The Miralax you begin with one packet at a time in 8oz water or crystal light, gatorade zero, or propel ?as early in the day as you can and you do them back to back until you finish them. Continue the protein shakes during? the bowel prep. 4. Needs to purchase 1oz medicine cups . 5. Needs to purchase Children's liquid Tylenol for postop pain control. 6. She needs to stop the Gabapentin as of 01/18/24 (last day to take the pill). Avoid aspirin, motrin, Advil, Aleve, Ibuprofen, Naproxyn. Tylenol is OK. 7. She needs to purchase the Celebrate 4:1 protein shakes from the hospital's gift shop. 8. Will do basic preop blood work-up any day between Monday01/15/24 and Monday01/19/24 fasting for 12 hours and is scheduled to see the Anesthesiologist prior to the day of surgery. 9. Importance of adherence to postop folllow-up and recommendations was underscored and she understands that. 10. Stop food and bars as of tomorrow 01/13/24 and continue with 5 Premier protein shakes (ONE scoop EACH in 8oz almond milk) at 7am-9am, 10am-12pm, 1pm-3pm, 4pm-6pm and at 7pm-9pm 11. No soups, broths or V8 12. The patient's?medical?history has been reviewed and they are considered low risk for post op DVT and therefore DVT prophylaxis is not considered necessary. Travel after surgery was reviewed. The patient has not disclosed any travel plans during the first 30 days after surgery and they have been advised that within the first 30 days after surgery any bus, plane, train or car travel over 2 hours in duration is contraindicated due to the possibility of developing blood clots from immobility. Any travel, needs to include periods of ambulation of 10 minutes in duration every 2 hours.? Patient was instructed to discuss any plans for travel during this period with their bariatric surgeon.? 13. Please take at the day of surgery the following medications: NONE 14. Stop any control pills and don't use them for one month after surgery 15. Absolutely no smoking or vaping, or marijuana until the surgery and for at least the first 4 weeks. Only nicotine patches are allowed. 16. Send me weight measurements on Monday01/19/24 and then on 01/25/24, the day of surgery before you go to the hospital. 17. Avoid any steroids by mouth for any reason. Let me know if someone prescribes them to you 18. These instructions supersede anything else you read in the handbook, anything you watched in videos or classes or you were told by any other provider. If there is any conflict, you follow the above instructions and nothing else. Orders: Orders Comprehensive Met. Panel Today E66.9 - Obesity, unspecified, Z68.36 - Body mass index [BMI] 36.0-36.9, adult TSH reflex Free T4 Today E66.9 - Obesity, unspecified, Z68.36 - Body mass index [BMI] 36.0-36.9, adult Vitamin A Today E66.9 - Obesity, unspecified, Z68.36 - Body mass index [BMI] 36.0-36.9, adult Prothrombin Time INR Today E66.9 - Obesity, unspecified, Z68.36 - Body mass index [BMI] 36.0-36.9, adult Vitamin B1 Today E66.9 - Obesity, unspecified, Z68.36 - Body mass index [BMI] 36.0-36.9, adult C Reactive Protein Today E66.9 - Obesity, unspecified, Z68.36 - Body mass index [BMI] 36.0-36.9, adult Complete Blood Count Auto Diff Today E66.9 - Obesity, unspecified, Z68.36 - Body mass index [BMI] 36.0-36.9, adult Ferritin Today E66.9 - Obesity, unspecified, Z68.36 - Body mass index [BMI] 36.0-36.9, adult Zinc Today E66.9 - Obesity, unspecified, Z68.36 - Body mass index [BMI] 36.0-36.9, adult Hemoglobin A1c Today E66.9 - Obesity, unspecified, Z68.36 - Body mass index [BMI] 36.0-36.9, adult Lipid Panel Today E66.9 - Obesity, unspecified, Z68.36 - Body mass index [BMI] 36.0-36.9, adult Type and Screen Today E66.9 - Obesity, unspecified, Z68.36 - Body mass index [BMI] 36.0-36.9, adult Vitamin B12 Today E66.9 - Obesity, unspecified, Z68.36 - Body mass index [BMI] 36.0-36.9, adult Partial Thromboplastin Time Today E66.9 - Obesity, unspecified, Z68.36 - Body mass index [BMI] 36.0-36.9, adult Vitamin D 25-OH Total Today E66.9 - Obesity, unspecified, Z68.36 - Body mass index [BMI] 36.0-36.9, adult IRON PROFILE Today E66.9 - Obesity, unspecified, Z68.36 - Body mass index [BMI] 36.0-36.9, adult Medications: New polyethylene glycol 3350 Mix each measuring cup with 8oz of water, Crystal light, or Gatorade zero, or Propel and do 7 measuring cups on 01/23/24 and another 7 measuring cups on 24 17 grams PO DAILY 238 grams 0RF Z01.818 - Encounter for other preprocedural examination pantoprazole 40 mg PO DAILY 90 tabs 0RF K21.9 - Gastro-esophageal reflux disease without esophagitis sucralfate 10 mL PO BID 600 mL 2RF K21.9 - Gastro-esophageal reflux disease without esophagitis ondansetron Only take one every 12 hours as needed if you have nausea 4 mg PO Q12H 20 tabs 0RF nausea and vomiting R11.0 - Nausea
== END ==
PROVIDERS: PCP Nurse Practitioner Family; Visit Provider Surgery
DX: E66.01 Morbid (severe) obesity due to excess calories (principal); Z68.36 Body mass index [BMI] 36.0-36.9, adult
CPT/HCPCS: 99214

== ENCOUNTER → 2024-01-15 08:07 | Outpatient (BNVA) | payer OTHER, SELFPAY | PROVIDERS: PCP Nurse Practitioner Family; Visit Provider Surgery ==

== ENCOUNTER → 2024-01-19 07:10 | Outpatient (BNV) | payer OTHER, SELFPAY | PROVIDERS: Admitting Provider Surgery; Visit Provider Internal Medicine Cardiovascular Disease | DX: Z01.810 Encounter for preprocedural cardiovascular examination (principal); E66.9 Obesity, unspecified; Z68.36 Body mass index [BMI] 36.0-36.9, adult | CPT/HCPCS: 93010 ==

== ENCOUNTER 2024-01-25 08:31 | Inpatient (IN) | payer OTHER, SELFPAY ==
[2024-01-15 08:03] LABS: MANUAL DIFF FLAG NO
[2024-01-15 08:39] LABS: Basophils Percent Auto 0.3 % (0-2); Eosinophils Absolute Auto 0.1 X10*3/uL (0.0-0.4); Eosinophils Percent Auto 1.4 % (0-4); Hematocrit 35.3 % (37.0-47.0); Imm Gran Abs Auto 0.03 X10*3/uL (0.00-0.03); Imm Gran Pct Auto 0.3 % (0.0-0.4); Lymphocytes Absolute Auto 2.5 X10*3/uL (1.2-4.9); Lymphocytes Percent Auto 24.8 % (20-40); Mean Corpuscular HGB Conc 31.2 g/dl (31.0-35.0); Mean Corpuscular Hemoglobin 21.7 pg (27.0-33.0); Mean Corpuscular Volume 69.5 fL (80.0-98.0); Mean Platelet Volume 10.3 fL (9.4-12.3); Monocytes Absolute Auto 0.6 X10*3/uL (0.1-1.2); Monocytes Percent Auto 5.7 % (2-11); Neutrophils Absolute Auto 6.7 x10*3/uL (2.0-8.3); Neutrophils Percent Auto 67.5 % (45-73); Platelet Count 407 X10*3/uL (160-400); Red Blood Count 5.08 X10*6/uL (4.20-5.50); Red Cell Distribution Width 16.7 % (11.0-16.0)
[2024-01-15 08:42] LABS: INTERNATIONAL NORM RATIO 0.9 (0.9-1.1); Prothrombin Time 11.2 SEC (11.1-13.3)
[2024-01-15 08:45] LABS: Estimated Average Glucose 114 mg/dL; Hemoglobin A1c % 5.6 % (<6.0); Partial Thromboplastin Time 39.6 SEC (26.0-36.8)
[2024-01-15 09:39] LABS: Alanine Aminotransferase 21 U/L (0-31); Albumin Level 4.1 g/dL (3.5-5.0); Alkaline Phosphatase 67 U/L (39-117); Anion Gap 12 (12-20); Aspartate Amino Transferase 15 U/L (5-31); Bilirubin Total 0.4 mg/dL (0.0-1.0); Blood Urea Nitrogen 10 mg/dL (9-16); C Reactive Protein 1.79 mg/dL (< or = 0.50); Calcium 9.2 mg/dL (8.4-10.2); Carbon Dioxide 23 mmol/L (22-29); Chloride 109 mmol/L (96-108); Cholesterol 167 mg/dL (<200); Estimated Glomerular Filt Rate > 60; Glucose Random 99 mg/dL (60-115); HDL Cholesterol 33 mg/dL (>40); Iron 65 mcg/dL (30-160); LDL Cholesterol Calculated 114 mg/dL (<100); Percent Iron Saturation 16 % (15-50); Potassium 3.6 mmol/L (3.3-5.1); Sodium 140 mmol/L (135-145); Total Iron Binding Capacity 403 mcg/dL (228-428); Triglycerides 101 mg/dL (<150); Unsaturated Iron Binding 338 ug/dL
[2024-01-15 09:57] LABS: Ferritin 23 ng/mL (10-122); TSH reflex Free T4 0.97 uIU/mL (0.32-4.0)
[2024-01-15 11:57] LABS: Vitamin B12 454 pg/mL (200-900)
[2024-01-16 14:13] VITALS: BMI 36.3
[2024-01-18 16:27] LABS: Zinc 77 mcg/dL (60-130)
--- NOTE | 2024-01-19 07:10 | ECG_ITS ---
Test Reason : E66.01 Blood Pressure : / mmHG Vent. Rate : 084 BPM Atrial Rate : 084 BPM P-R Int : 166 ms QRS Dur : 098 ms QT Int : 382 ms P-R-T Axes : 044 037 016 degrees QTc Int : 451 ms Normal sinus rhythm Normal ECG When compared with ECG of 11-JAN-2023 08:22, No significant change was found Referred By: Clive Tan Electronically Signed By:MEENU FLOWERS MD
[2024-01-19 21:39] LABS: Vitamin A 52 mcg/dL (38-98)
[2024-01-21 15:09] LABS: Vitamin B1 <6 nmol/L (8-30)
--- NOTE | 2024-01-23 14:30 | P.CONAN_ITS ---
Documented by User: Radha Lopez NP 01/23/24 14:31 HPI - Anesthesia Eval Consult details Narrative: 33yo F for Gastrectomy Sleeve-EGD, possible diaphragmatic hernia, possible ventral hernia, possible open PMFSH Active Problems Active Problems: All Active Problems Pre-op evaluation (Acute) BMI 36.0-36.9,adult (Acute) Obesity (Acute) Late menses (Acute) Cervical cancer screening (Acute) Well woman exam with routine gynecological exam (Acute) History of uterine anomaly (Acute) Depression (Acute) Generalized anxiety disorder with panic attacks (Acute) ADHD (Acute) Carpal tunnel syndrome of left wrist (Acute) Carpal tunnel syndrome, right (Acute) Obesity (BMI 30-39.9) (Acute) Paresthesia of right upper extremity (Acute) Neuropathy (Acute) Fibromyalgia (Acute) NIA (obstructive sleep apnea) (Acute) Morbid obesity (Acute) Tubal ligation status (Acute) Hx of section (Acute) Past Medical History Medical History Anemia Family History Family History Mother Heart disease Hypertension Brain tumor Diabetes Thyroid condition Father No problems noted. Daughter No problems noted. Son No problems noted. Son No problems noted. Other Mental health disorder Surgical History Surgical History H/O carpal tunnel repair Tubal ligation status History of surgery on arm Hx of section Hx of appendectomy Social History Social History Housing: House Are you a primary senior care provider to a significant other at home: No Do you presently have visiting nurse or other home services: No Alcohol intake: current Alcohol intake frequency: does not drink Comment: counts correct Patient Tobacco Use Status: Never used Tobacco e-Cigarette/Vaping Use: Never Used Second Hand Smoke Exposure: No Use of substances other than those prescribed or required for medical reasons: No Have you been hit, kicked, punched, or otherwise hurt by someone within the past year? 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 Cognitive needs: No Hearing needs: No Vision needs: Yes (glasses) Meds Allergies Allergy/AdvReac Type Severity Reaction Status Date / Time No Known Allergies Allergy Verified 01/25/24 08:33 Exam Height,Weight and Vital Signs: Height 5 ft 5 in Weight 98.883 kg Pertinent Lab Results Pertinent Lab Results: Laboratory Tests 01/15/24 01/15/24 07:50 08:02 WBC 10.0 RBC 5.08 Hgb 11.0 L Hct 35.3 L MCV 69.5 L MCH 21.7 L MCHC 31.2 RDW 16.7 H Plt Count 407 H MPV 10.3 Immature Gran % (Auto) 0.3 Neut % (Auto) 67.5 Lymph % (Auto) 24.8 Meeker % (Auto) 5.7 Eos % (Auto) 1.4 Baso % (Auto) 0.3 Lymph # (Auto) 2.5 Meeker # (Auto) 0.6 Eos # (Auto) 0.1 Baso # (Auto) 0.0 Abs Immat Gran (auto) 0.03 Absolute Neuts (auto) 6.7 Absolute Nucleated RBC 0.000 Nucleated RBC % (auto) 0.0 PT 11.2 INR 0.9 APTT 39.6 H Sodium 140 Potassium 3.6 Chloride 109 H Carbon Dioxide 23 Anion Gap 12 BUN 10 Creatinine 0.72 Estim Creat Clear Calc TNP Estimated GFR > 60 Random Glucose 99 Estimat Average Glucose 114 Hemoglobin A1c % 5.6 Calcium 9.2 Iron 65 TIBC 403 % Saturation 16 Unsat Iron Binding 338 Ferritin 23 Total Bilirubin 0.4 AST 15 ALT 21 Alkaline Phosphatase 67 C-Reactive Protein 1.79 H Total Protein 7.0 Albumin 4.1 Triglycerides 101 Cholesterol 167 LDL Cholesterol, Calc 114 H HDL Cholesterol 33 L Vitamin A 52 Vitamin B1 <6 L Vitamin B12 454 25-OH Vitamin D Total 26.0 L TSH 0.97 Zinc 77 Blood Type Cancelled Rho(D) Type Cancelled Antibody Screen Cancelled Narrative Narrative: EKG 01/2024 Vent. Rate : 084 BPM Atrial Rate : 084 BPM P-R Int : 166 ms QRS Dur : 098 ms QT Int : 382 ms P-R-T Axes : 044 037 016 degrees QTc Int : 451 ms Normal sinus rhythm Normal ECG When compared with ECG of 11-JAN-2023 08:22, No significant change was found Assessment and Plan Assessment Anesthesia Assessment: Chart Reviewed Documented by User: Deborah Craig MD 01/25/24 12:51 HPI - Anesthesia Eval Consult details Narrative: 33yo F for EGD, Laparoscopic Sleeve Gastrectomy, possible diaphragmatic hernia repair, possible ventral hernia repair, possible open PMFSH Active Problems Active Problems: All Active Problems Pre-op evaluation (Acute) BMI 36.0-36.9,adult (Acute) Obesity (Acute) Late menses (Acute) Cervical cancer screening (Acute) Well woman exam with routine gynecological exam (Acute) History of uterine anomaly (Acute) Depression (Acute) Generalized anxiety disorder with panic attacks (Acute) ADHD (Acute) Carpal tunnel syndrome of left wrist (Acute) Carpal tunnel syndrome, right (Acute) Obesity (BMI 30-39.9) (Acute) Paresthesia of right upper extremity (Acute) Neuropathy (Acute) Fibromyalgia (Acute) NIA (obstructive sleep apnea) (Acute) Morbid obesity (Acute) Tubal ligation Hx of section (Acute) Past Medical History Medical History Anemia Family History Family History Mother Heart disease Hypertension Brain tumor Diabetes Thyroid condition Father No problems noted. Daughter No problems noted. Son No problems noted. Son No problems noted. Other Mental health disorder Family history of problems with anesthesia: No Surgical History Surgical History H/O carpal tunnel repair Tubal ligation status History of surgery on arm Hx of section Hx of appendectomy History of Problems with Anesthesia: No Social History Social History Housing: House Are you a primary senior care provider to a significant other at home: No Do you presently have visiting nurse or other home services: No Alcohol intake: current Alcohol intake frequency: does not drink Comment: counts correct Patient Tobacco Use Status: Never used Tobacco e-Cigarette/Vaping Use: Never Used Second Hand Smoke Exposure: No Use of substances other than those prescribed or required for medical reasons: No Have you been hit, kicked, punched, or otherwise hurt by someone within the past year? 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 Cognitive needs: No Hearing needs: No Vision needs: Yes (glasses) Meds Allergies Allergy/AdvReac Type Severity Reaction Status Date / Time No Known Allergies Allergy Verified 01/25/24 08:33 Exam Height,Weight and Vital Signs: Height 5 ft 5 in Weight 98.883 kg Vital Signs Temp Pulse Resp BP Pulse Ox O2 Del Method 01/25/24 09:25 98.7 F 87 16 140/84 H 100 Room Air Pertinent Lab Results Pertinent Lab Results: Laboratory Tests 01/15/24 01/15/24 07:50 08:02 WBC 10.0 RBC 5.08 Hgb 11.0 L Hct 35.3 L MCV 69.5 L MCH 21.7 L MCHC 31.2 RDW 16.7 H Plt Count 407 H MPV 10.3 Immature Gran % (Auto) 0.3 Neut % (Auto) 67.5 Lymph % (Auto) 24.8 Meeker % (Auto) 5.7 Eos % (Auto) 1.4 Baso % (Auto) 0.3 Lymph # (Auto) 2.5 Meeker # (Auto) 0.6 Eos # (Auto) 0.1 Baso # (Auto) 0.0 Abs Immat Gran (auto) 0.03 Absolute Neuts (auto) 6.7 Absolute Nucleated RBC 0.000 Nucleated RBC % (auto) 0.0 PT 11.2 INR 0.9 APTT 39.6 H Sodium 140 Potassium 3.6 Chloride 109 H Carbon Dioxide 23 Anion Gap 12 BUN 10 Creatinine 0.72 Estim Creat Clear Calc TNP Estimated GFR > 60 Random Glucose 99 Estimat Average Glucose 114 Hemoglobin A1c % 5.6 Calcium 9.2 Iron 65 TIBC 403 % Saturation 16 Unsat Iron Binding 338 Ferritin 23 Total Bilirubin 0.4 AST 15 ALT 21 Alkaline Phosphatase 67 C-Reactive Protein 1.79 H Total Protein 7.0 Albumin 4.1 Triglycerides 101 Cholesterol 167 LDL Cholesterol, Calc 114 H HDL Cholesterol 33 L Vitamin A 52 Vitamin B1 <6 L Vitamin B12 454 25-OH Vitamin D Total 26.0 L TSH 0.97 Zinc 77 Blood Type Cancelled Rho(D) Type Cancelled Antibody Screen Cancelled Laboratory Results - last 24 hr 01/25/24 09:07 Blood Type O Positive Antibody Screen NEGATIVE Airway Mallampati Class: II TM Dist: >3cm Neck ROM: Full Loose/Missing/Broken Teeth: No (Denies broken, loose, missing teeth ) Heart: RRR Lungs: CTAB Assessment and Plan Assessment Anesthesia Assessment: Anesthesia Plan Discussed and Chart Reviewed Final Anesthetic Review Family History of Problems with Anesthesia: No History of Problems with Anesthesia: No NPO: Yes ASA Class: III Final Preanesthetic Review: No Changes in Pt Med Stat, Meds/Allgs Chart Reviewed, Consent Obtained/Reviewed and Anes Risks/Benef Reviewed Patient Risk: Intermediate Procedure Risk: Intermediate Assessment/Block/Sedation in SS: Assess/Block/Sedation-SS Anesthetic Plan Anesthetic Plan: GA Disposition: Standard PACU and Inp. Admit - Standard Bed
[2024-01-25] VITALS (12 sets, daily range): BP systolic 105–140; BP diastolic 57–84; PULSE 68–90; RESP 14–22; TEMP 36.1–37.1; O2SAT 95–100
[2024-01-25] MEDS: Lactated Ringers 1,000 ML 999 ML IV (09:23)
[2024-01-25] MEDS: Aprepitant 32 MG/4.4 ML VIAL IVPUSH (09:23)
--- NOTE | 2024-01-25 10:33 | PM.OP ---
Brief Operative Note Date of Service: 01/25/24 Pre-op diagnosis: Severe obesity with comorbidities (see below) Post-op diagnosis: same Procedure: INITIAL PATIENT BMI ON PRESENTATION AT OUR OFFICE: 39.9 kg/m2 LAST BMI BEFORE SURGERY: 36.4 kg/m2 COMORBIDITIES: GERD, fibromyalgia, liver steatosis ?The patient presented to the Weight Management Program with significant obesity that was negatively impacting the patient's comorbidities as listed above.? The program is a phased program with a special focus on preoperative medical weight management to promote substantial weight loss and prepare the patients for the second phase of the program: bariatric surgery. The patient participated in an intensive weekly lifestyle ?intervention and exercise program during which the patient ?has lost between the initial office visit and the last preoperative visit 21.4lbs, or 8.92% of initial actual body weight. It was deemed appropriate for the patient to now have bariatric surgery. In light of the current Covid-19 pandemic and the well documented strong association of obesity and increased risk of worse outcomes if infected with Covid-19 (REFERENCES:https://pubmed.ncbi.nlm.nih.gov/56129095/,?https://pubmed.ncbi.nlm.nih.gov/03523887/), any delay in undergoing bariatric surgery may lead to the patient's worsening health condition and increased?risk of more severe Covid-19 disease if infected. In addition a recent?study from [facility] published in [facility] on 08/09/2021 ([email or web address]) found that, among patients with obesity, substantial weight loss achieved with surgery was associated with improved outcomes of COVID-19 infection. The findings suggest that obesity can be a modifiable risk factor for the severity of COVID-19 infection. In addition, the patient met the BMI-criteria for bariatric surgery based on the BMI on initial presentation. The patient should not be penalized for achieving such weight loss because ?it is not sustainable long-term without surgical intervention and it was achieved in preparation for bariatric surgery ?under my direction and based on my published research ([email or web address]).[email or web address] and?[email or web address].soard.org/article/[email or web address](32)15341-X/pdf) ?that a 10% preoperative weight loss improves long-term weight loss after surgery and reduces perioperative complications.? Insurance carriers such as [facility] have endorsed my recommendations ?and have included in their policies criteria to include a 10% preoperative weight loss requirement. PROCEDURE: Esophago-gastroscopy, laparoscopic sleeve gastrectomy and laparoscopic gastropexy INDICATIONS: This is a 33 year-old female who was electively scheduled for laparoscopic, possibly open sleeve gastrectomy. The risks and complications of the procedure were discussed with the patient in advance, particularly the possibility of ; pulmonary embolism; staple line leak; bleeding; GERD; cardiac, pulmonary, or renal complications; as well as long-term problems such as insufficient weight loss, vitamin deficiency, strictures, or ulcers. The patient understood all the risks, and was in agreement to proceed with surgery. DESCRIPTION OF PROCEDURE: After informed consent was obtained from the patient, the patient was given preoperative antibiotics, and was transferred to the operating room. After successful induction of general anesthesia, pneumatic compression devices were placed on both lower extremities. An upper endoscopy was performed next. The oropharynx and esophagus appeared to be within normal limits. There was no diaphragmatic hernia present, consistent with the findings of the preoperative upper GI. The stomach was entered. Then after all fluid and air were suctioned and the stomach was fully decompressed, the scope was withdrawn and secured in the mid esophagus. The patient was then prepped and draped in the usual sterile manner, and abdominal access was established at the right upper quadrant with the Arnaldo technique. A 12 mm blunt port was inserted, and the abdomen was insufflated with CO2 to a pressure of 15 mmHg. Under direct visualization, additional ports were placed, specifically two 5 mm Versi-step ports to the left upper quadrant, and a 5 mm Versi-Step port to the right upper quadrant. 1% lidocaine plain was used to infiltrate all port sites as well as all fascia defects. Following that, the patient was placed in a steep reverse Trendelenburg position. An additional 5 mm port was placed to the right flank for the Mediflex retractor that was used to retract the left lobe of the liver. The gastro-esophageal fat pad was opened with the ultrasonic device (Thchelsieerbeat, Olympus) and the anterior esophagus and hiatus were exposed. The angle of His was opened with the ultrasonic device the fundus of the stomach from any diaphragmatic and splenic attachments. I then opened the gastrocolic ligament between the transverse colon and the greater curvature of the stomach with the ultrasonic device to enter the lesser sac and facilitate the ligation of the short gastric vessels. I started at a mid-point along the greater curvature and using the Thunderbeat, all short gastric vessels were divided all the way to the angle of His until the left shaista was completely dissected at its entirety. I then divided the gastro-colic ligament distally to a distance of about 3-4 cm proximal to the pylorus. The stomach was then divided transversely with one Endo NORMA-45 purple and four NORMA-6s0 articulating purple loads using the NxThera stapler and loads. Every effort was made that the gastric sleeve had a tubular shape and an even caliber throughout. Once the sleeve resection was completed, the staple line of the gastric sleeve was reinforced with Hemoclips. The resected stomach was retrieved without difficulty from the Arnaldo port. A gastropexy was then performed in order to prevent postoperative GERD and partial gastric volvulus. Several interrupted 2.0 Surgidac sutures were placed between the sleeve's staple line and the previously divided greater omentum and gastro-colic ligament using the Endo-Stitch device. ?An upper endoscopy was performed. There was no narrowing at the GE junction. The scope was easily advanced all the way to the pylorus which was clearly visualized. There was no narrowing anywhere and the sleeve's caliber was even throughout. The sleeve's staple line was inspected and there was no evidence of ischemia, bleeding or dehiscence. At that point the gastroscope was withdrawn from the patient?s mouth while we were decompressing the bowel and the stomach from any remaining air. I looked into the lesser sac to see how the sleeve was situating and it was situating well. There was no bleeding from the staple line, spleen, or short gastric vessels. The Mediflex retractor was removed, and the undersurface of the liver was inspected and there was no bleeding. The patient was placed in supine position. I closed the fascial defect of the 12 mm port site with a figure of eight #1 Polysorb suture. Then 30cc Ropivacaine plain with 10 mg of Dexamethasone were used to infiltrate the fascial closure as well as all skin incisions. A total of 7ml Zynrelef was applied in the Arnaldo wound. At this point, the abdomen was deflated, all ports were removed under direct vision, and no bleeding was noted from any of the port sites. The skin incisions were irrigated with saline and were closed with 4-0 absorbable monofilament sutures. Steri-Strips and OpSites were used to cover all incisions. The patient was extubated and was transferred in stable condition to the recovery room for further care. I was present and performed all barth parts of the procedure. Mr. Wilkes was the oral surgery assistant. There were no residents to assist with this case. Alex Tan MD, PhD, FACS Surgeon: Clive Tan MD Anesthesia: GETA, local and other (TAP block and 7ml Zynrelef) Was an Transistor Tester used for this Procedure?: No Transistor Tester: Jose Wilkes Estimated blood loss (mL): 10 IV fluids (mL): 1,900 Urine output (mL): 0 (No Downs to record output) Pathology: other (Stomach) Condition: stable Disposition: PACU
--- NOTE | 2024-01-25 10:36 | P.PNGS_ITS ---
Subjective Subjective Date of Service: 01/26/24 Interval history: Feels well. Mild incisional pain. She is tolerating phase 1 bariatric diet Physical Exam 2 Vital Signs: Vital Signs: Last Vital Signs Temp 98.7 F 01/25/24 09:25 Pulse 87 01/25/24 09:25 Resp 16 01/25/24 09:25 BP 140/84 H 01/25/24 09:25 Pulse Ox 100 01/25/24 09:25 O2 Del Method Room Air 01/25/24 09:25 BMI result Body Mass Index 36.3 GI: Inspection: Yes normal to inspection, Yes incision (clean, dry and intact) and Yes obesity Extrem: Right lower extremity: normal to inspection (no calf tenderness) L eft lower extremity: normal to inspection (no calf tenderness) Objective Data Active Medications Lactated Ringer's (Lr) 1,000 mls @ 100 mls/hr IVCONT .Q10H ZHANG Lactated Ringer's (Lr) 1,000 mls @ 999 mls/hr IV .Q1H1M ZHANG Stop: 01/25/24 10:45 Last Admin: 01/25/24 09:23 Dose: 999 mls/hr Documented By: JESUS Labs 01/26/24 05:22 01/26/24 05:22 Labs: Laboratory Results - last 24 hr 01/25/24 09:07 Blood Type O Positive Antibody Screen NEGATIVE Procedures Date of Service Date of Service: 01/26/24 Progress Note: A&P Assessment and plan (1) Obesity: Status: Acute Assessment and Plan: s/p laparoscopic sleeve gastrectomy and gastropexy Doing well Will check am labs and if OK the patient will be discharged home (2) BMI 36.0-36.9,adult: Status: Acute (3) Depression: Status: Acute (4) ADHD: Status: Acute (5) Fibromyalgia: Status: Acute (6) GERD (gastroesophageal reflux disease): Status: Acute (7) Steatosis, liver: Status: Acute (8) S/P laparoscopic sleeve gastrectomy: Status: Acute Time Spent With Patient Time: Total time managing care of this patient today ____ minutes. Quality Stroke Does the patient have a stroke diagnosis?: No VTE Prior VTE?: No VTE Risk Level:: Surgical - moderate VTE Device Contraindication: N/A - Device Ordered VTE Drug Contraindication: Treatment Not Indicated
--- NOTE | 2024-01-25 10:39 | MHC.SHP ---
Pre-Procedural Eval Section A - 24 Hr Update-Section A only Date of Service: 01/25/24 The patient is an INPATIENT: Yes The patient has been examined within 24 hours of the surgical procedure. The History & Physical has been completed within 30 days and I have reviewed it.: Yes Section B - Complete if H&P > 30 days Chief Complaint: Obesity, unspecified Relevant Family History (Specify if Yes): No Relevant Social History: None Present Medications: None Medical History: No relevant PMH History of Previous Operations: No relevant previous surgery Allergies: Allergies Allergy/AdvReac Type Severity Reaction Status Date / Time No Known Allergies Allergy Verified 01/25/24 08:33 Review of Systems Sugical H&P ROS: Negative: Constitution, Cardiovascular, Respiratory, Neurological, Psychiatric, Hem-Onc, Allergic/Immunologic, Gastrointestinal, Genitourinary, Musculoskeletal, Integumentary, Endocrine and Eyes/Ears/Nose/Throat Exam Surgical H&P Exam: Normal: HEENT, Normal: Heart, Normal: Lungs, Normal: Extremities, Normal: Abdomen, Normal: Skin and Normal: Neurological Plan Diagnosis/Plan: Unchanged I have reviewed the history and physical and performed a pertinent physical examination on my patient. No changes have occurred unless specified. Time Spent With Patient Time: Total time managing care of this patient today ____ minutes.
--- NOTE | 2024-01-25 13:10 | P.DS_ITS ---
DS: Providers Provider Date of Service: 01/26/24 Date of admission: 01/25/24 08:31 Primary care physician: Unknown Physician DS: Diagnosis Discharge Diagnosis (1) Obesity: Status: Acute (2) BMI 36.0-36.9,adult: Status: Acute (3) Depression: Status: Acute (4) ADHD: Status: Acute (5) Fibromyalgia: Status: Acute (6) GERD (gastroesophageal reflux disease): Status: Acute (7) Steatosis, liver: Status: Acute DS: Summary Hospital Course Hospital Course: ADMITTING DIAGNOSIS: obesity,sheila, fibromyalgia, depression, adhd ? DISCHARGE DIAGNOSIS: same, s/p laparoscopic sleeve gastrectomy ? PAST SURGICAL HISTORY: carpal tunnel, cesarian section, tubal ligation, appendectomy ? PROCEDURE: upper endoscopy, laparoscopic sleeve gastrectomy ? DISCHARGE SUMMARY: ? History of Present Illness: ? The patient is a?33 year-old woman with a BMI of?40 kg/m2 and associated co- morbidities as described above. The patient had extensive work-up,lost?23.3 lbs preoperatively and was electively scheduled for laparoscopic, possible open sleeve gastrectomy and gastropexy. Risks and complications of the surgery were discussed with the patient in advance, particularly the possibility of , pulmonary embolism, anastomotic leak, bleeding, bowel injury, GERD, cardiac, renal or pulmonary complications. The patient understood all the risks and was in agreement with the surgical plan. ? Hospital Course: ? The patient underwent an uneventful laparoscopic sleeve gastrectomy with gastropexy on the day of admission. Postoperatively, the patient was transferred to the surgical floor. The patient received IV Acetaminophen and IV dilaudid for pain control. Patient was started on bariatric phase 1 diet POD #0. On postoperative day one, the patient was feeling well without nausea, vomiting, fevers, or tachycardia. The patient had some mild incisional pain and the abdomen was soft. ? On the morning of postoperative day one, the patient was continued on 1 ounce of water or ice every half hour. During the day, the patient did fairly well, having some incisional pain, but able to ambulate adequately and to tolerate liquids well. ? Since the patient is doing well, we decided that the patient was ready to be discharged. The patient was given instructions to follow-up with me next week and to call my office for any fever over 101, persistent abdominal pain, nausea, vomiting, GERD, symptoms of DVT such as calf tenderness, or leg swelling, or pulmonary embolism such as chest pain or shortness of breath. The patient was also instructed to drink 40-60 ounces of liquids per day using the 1-ounce cups. The patient had been given prescriptions for Tylenol for pain, Zofran prn for nausea, and pantoprazole and carafate previously. The patient was encouraged to ambulate and use the incentive spirometer. The patient was allowed to shower, but no baths, and encouraged to stay active at home. All of these instructions were given to the patient personally. All questions were answered and the patient understood all instructions, the instructions were also given to the patient in print. Time Attestation Total time managing care of this patient today: 25 mintues. Discharge Coordination Time (in mins): 25 Quality: Safe Use of Opioids Does Pt have an Active Cancer Diagnosis on the Problem List?: No Quality: Stroke Does the patient have a stroke diagnosis?: No Physical Exam Vital Signs: Vital Signs: Last Vital Signs Temp 98.7 F 01/25/24 09:25 Pulse 87 01/25/24 09:25 Resp 16 01/25/24 09:25 BP 140/84 H 01/25/24 09:25 Pulse Ox 100 01/25/24 09:25 O2 Del Method Room Air 01/25/24 09:25 BMI result Body Mass Index 36.3 DS: Data Data Completed and Pending Pending studies at discharge: Pending at discharge 01/25/24 12:35 Surgical [PTH] Routine Labs on day of discharge: Laboratory Results - last 24 hr 01/25/24 09:07 Blood Type O Positive Antibody Screen NEGATIVE Discharge Plan Discharge Anticipated Discharge Date/Time: 01/26/24 10:00 Patient Disposition: Home, Self-Care Discharge Diagnosis: s/p laparoscopic sleeve gastrectomy Referrals: Physician,Unknown J [Primary Care Provider] - 1 Week Discharge Medications: Continued pantoprazole 40 mg tablet,delayed release (DR/EC) 40 mg PO DAILY Qty: 90 0RF sucralfate 100 mg/mL suspension 10 ml PO BID Qty: 600 2RF ondansetron 4 mg tablet,disintegrating 4 mg PO Q12H Qty: 20 0RF Rx Instructions: Only take one every 12 hours as needed if you have nausea Discontinued cyanocobalamin (vitamin B-12) 500 mcg tablet 500 mcg PO DAILY 90 Days Qty: 90 0RF Vitron-C 65 mg iron- 125 mg tablet,delayed release (DR/EC) 1 tab PO DAILY Qty: 90 0RF Rx Instructions: swallow whole; do not chew/break/dissolve/open Discharge Orders: Discharge Order (Routine); Ordered 01/26/24 Ordered By: Clive Tan Activity on Discharge: No heavy lifting Stand Alone Forms: Patient Portal Discharge page Print Language: Egyptian Care Plan Goals: weight loss Health Concerns: obesity Plan of Treatment: No tub baths, sex or returning to work until discussed at first post op appointment. No exercise, alcohol, tobacco or illegal drug use. Continue to use incentive spirometer hourly while awake. Walk in home for 5- 10 minutes every 2 hours during the first week. Follow all instructions in the bariatric handbook and call with any questions.Discharge Instructions 1. Please call your doctor or come back to the emergency room should any new symptoms arise. 2. You will receive a courtesy call from [facility] 24-48 hours after discharge. 3. Activity: abstain from alcohol, practice limited stair climbing, no bending, no driving, no exercise, no illicit substances, no lifting, no sex, no tub bath, no work. 4. Diet: continue as discussed with Dr. aTn. 5. Dressing Change/Wound Care: Your incision is covered by clear bandages and guaze underneath. If the area is tender, you may apply an ice pack for short intervals (no more than 20 minutes on, followed by at least 20 minutes off). Do not apply heat. Do not use creams, lotions, or topical antibiotics unless instructed to do so by your surgeon. These can cause infection or allergic reaction. 6. Call your doctor if: - Your temperature exceeds 101.5 F - You experience excessive pain or swelling - You have an unexpected reaction to medication - You have excessive bleeding - You experience continued vomiting/nausea - Your incision begins to separate - Your incision shows signs of infection such as increased redness, swelling, excessive pain, heat, or drainage (light blood or clear fluid is normal) 7. General instructions: No lifting greater than 5 lbs for 1 week and not more than 20lbs the next 3?weeks. No driving until seen at the office in 5-7 days after surgery. If you do not move your bowels in the next 2 days, please tell?Dr. Tan. Please walk around your home every hour or two to prevent blood clots from forming in your legs. You do not need to wake from sleeping to walk. Please sleep in a bed or couch to prevent kinking at the hips and knees. Please take your incentive spirometer (your lung media marketing director) home with you and use it for the next few days to prevent pneumonia. You may shower, no hot tubs, baths or swimming pools.?Please follow the post op diet instructions you are?given by Dr Tan? and text me daily at 5-6pm for an update.?If you have any issues or concerns or questions please communicate this to him via text.? The Celebrate shakes have all of the bariatric vitamins you need if you consume these shakes. If you are drinking other protein shakes, you will need to purchase the Celebrate multivitamins and calcium that are available in the hospital gift shop on the first floor of the [facility].??Do not take anything without first discussing with Dr Tan. Please make sure you are consuming at least 40 ounces of fluids per day starting the?day AFTER your discharge from the hospital. Always drink 1-2 ml per minute using the 5ml?syringe. If you drink faster you may experience?bloating,?gas pain, burping, nausea or heartburn. In that case please slow down your pace and use the syringe to?understand better the?proper?pace and volume of drinking. Do not hesitate to contact the office with any questions at . The patient's medical history has been reviewed and they are considered low risk for post op DVT and therefore DVT prophylaxis is not considered necessary. Travel after surgery was reviewed. The patient has not disclosed any travel plans during the first 30 days after surgery and they have been advised that within the first 30 days after surgery any bus, plane, train or car travel over 2 hours in duration is contraindicated due to the possibility of developing blood clots from immobility. Any travel, needs to include periods of ambulation of 10 minutes in duration every 2 hours.? The patient was instructed to discuss any plans for travel during this period with their bariatric surgeon. Assessment: stable s/p laparoscopic sleeve gastrectomy Patient Instructions: Nutrition after Bariatric Surgery (DC) Discharge Date/Time: 01/26/24 10:39
[2024-01-25 13:43] LABS: Hematocrit 32.3 % (37.0-47.0)
[2024-01-25 13:52] LABS: Anion Gap 12 (12-20); Blood Urea Nitrogen 8 mg/dL (9-16); Calcium 8.8 mg/dL (8.4-10.2); Carbon Dioxide 24 mmol/L (22-29); Chloride 106 mmol/L (96-108); Estimated Glomerular Filt Rate > 60; Glucose Random 122 mg/dL (60-115); Potassium 3.9 mmol/L (3.3-5.1); Sodium 138 mmol/L (135-145)
[2024-01-25] MEDS: fentaNYL citrate/PF 100 MCG/2 ML VIAL 25 MCG IVPUSH (13:55)
[2024-01-25] MEDS: Lactated Ringers 1,000 ML 100 ML IVCONT (14:27)
[2024-01-25] MEDS: cefoTEtan disodium 2 GM in 0.9 % Sodium Chloride 50 ML IV (16:14)
[2024-01-25] MEDS: Iron Sucrose Complex 400 MG in 0.9 % Sodium Chloride 250 ML 180 MG IV (16:53)
--- NOTE | 2024-01-25 17:53 | PHA.MEDREC ---
Pharmacy Consult ? Medication Reconciliation Pharmacy has completed the medication reconciliation. Spoke to patient to confirm med list.
[2024-01-25] MEDS: 0.9 % Sodium Chloride Flush 3 ML SYRINGE IVFLUSH (19:21)
[2024-01-25] MEDS: Acetaminophen 1,000 MG/100 ML PIGGYBACK 16.7 MG IV (19:21)
[2024-01-25] MEDS: Famotidine/PF 20 MG/2 ML VIAL IVPUSH (20:53)
[2024-01-26] MEDS: Lactated Ringers 1,000 ML 100 ML IVCONT (01:23)
[2024-01-26] MEDS: Acetaminophen 1,000 MG/100 ML PIGGYBACK 16.7 MG IV (01:24)
[2024-01-26 03:19] VITALS: BP 128/58; PULSE 68; RESP 18; TEMP 36.1; O2SAT 97
[2024-01-26 06:14] LABS: MANUAL DIFF FLAG NO
[2024-01-26 06:27] LABS: Basophils Percent Auto 0.2 % (0-2); Hematocrit 32.3 % (37.0-47.0); Hemoglobin 10.2 g/dl (12.0-16.0); Imm Gran Abs Auto 0.08 X10*3/uL (0.00-0.03); Imm Gran Pct Auto 0.5 % (0.0-0.4); Lymphocytes Absolute Auto 1.3 X10*3/uL (1.2-4.9); Lymphocytes Percent Auto 8.4 % (20-40); Mean Corpuscular HGB Conc 31.6 g/dl (31.0-35.0); Mean Corpuscular Hemoglobin 22.1 pg (27.0-33.0); Mean Corpuscular Volume 70.1 fL (80.0-98.0); Mean Platelet Volume 10.8 fL (9.4-12.3); Monocytes Absolute Auto 0.7 X10*3/uL (0.1-1.2); Monocytes Percent Auto 4.2 % (2-11); Neutrophils Absolute Auto 13.8 x10*3/uL (2.0-8.3); Neutrophils Percent Auto 86.7 % (45-73); Platelet Count 456 X10*3/uL (160-400); Red Blood Count 4.61 X10*6/uL (4.20-5.50); Red Cell Distribution Width 16.5 % (11.0-16.0); White Blood Count 15.9 X10*3/uL (4.8-10.8)
[2024-01-26 06:45] LABS: Anion Gap 12 (12-20); Blood Urea Nitrogen 6 mg/dL (9-16); Calcium 9.6 mg/dL (8.4-10.2); Carbon Dioxide 25 mmol/L (22-29); Chloride 106 mmol/L (96-108); Creatinine Clr Calc Pharmacy 144.2; Estimated Glomerular Filt Rate > 60; Glucose Random 106 mg/dL (60-115); Potassium 3.8 mmol/L (3.3-5.1); Sodium 139 mmol/L (135-145)
[2024-01-26] MEDS: 0.9 % Sodium Chloride Flush 3 ML SYRINGE IVFLUSH (07:24)
[2024-01-26] MEDS: Famotidine/PF 20 MG/2 ML VIAL IVPUSH (07:24)
[2024-01-26 07:49] VITALS: BP 136/64; PULSE 79; RESP 16; TEMP 37.2; O2SAT 99
--- NOTE | 2024-01-26 09:31 | MHC.CM.PN ---
Addendum entered by Carol Ann Seymour 01/26/24 09:35: PCP: DANIE MUSTAFA Original Note: PT REPORTS SHE LIVES WITH HER AND THREE CHILDREN (AGES 7, 13, 14) SHE IS INDEPENDENT WITH CARE, HAS NO DME AND NO SERVICES PT SAYS HER PCP IS AT [address] SHE DECLINES TO COMPLETE A HCP PT WILL DC HOME TODAY WITH NO SERVICES VIA PRIVATE TRANSPORT
--- NOTE | 2024-01-26 18:01 | HO.POSTANES ---
Post Anesthesia Evaluation Post Anesthesia Evaluation Date of Service: 01/26/24 Vital Signs: Vital Signs Temp Pulse Resp BP Pulse Ox O2 Del Method 01/26/24 07:49 98.9 F 79 16 136/64 99 Room Air Anesthesia: General Endotracheal-GETA Mental Status: Awake Pain Control: Satisfactory Nausea/Vomiting: None Hydration: Adequate Anesthesia-Related Issues: No Anes. Related Issues
== END 2024-01-26 10:39 | disposition home or self-care (01) | DRG 403 ==
LOC: HO.SSSA 13:15 → HO.S3 13:23
PROVIDERS: Physician Assistant Surgical; Admitting Provider Surgery; Visit Provider Surgery
PROC: 0DB64Z3 Excision of Stomach, Percutaneous Endoscopic Approach, Vertical (ICD-10-PCS; CPT 43845; principal; 2024-01-25 10:20)
DX: E66.01 Morbid (severe) obesity due to excess calories (principal); K76.0 Fatty (change of) liver, not elsewhere classified; F32.A Depression, unspecified; K21.9 Gastro-esophageal reflux disease without esophagitis; F90.9 Attention-deficit hyperactivity disorder, unspecified type; Z68.36 Body mass index [BMI] 36.0-36.9, adult; M79.7 Fibromyalgia; Z79.899 Other long term (current) drug therapy
CPT/HCPCS: 36415; 80048; 80053; 80061; 82306; 82607; 82728; 83036; 83540; 84425; 84443; 84590; 84630; 85014; 85018; 85025; 85610; 85730; 86140; 86850; 86900; 86901; 88304; 88305; 88307; 88342; 93005; A4649; C9088; C9145; J0131; J0690; J1100; J1170; J1756; J2250; J2405; J2704; J2795; J3010; J7120

== ENCOUNTER → 2024-01-25 08:31 | Outpatient (BNV) | payer OTHER, SELFPAY | PROVIDERS: Admitting Provider Surgery; Visit Provider Surgery | DX: E66.01 Morbid (severe) obesity due to excess calories (principal); Z68.36 Body mass index [BMI] 36.0-36.9, adult; F32.A Depression, unspecified; F90.9 Attention-deficit hyperactivity disorder, unspecified type; M79.7 Fibromyalgia; K21.9 Gastro-esophageal reflux disease without esophagitis; K76.0 Fatty (change of) liver, not elsewhere classified; Z98.84 Bariatric surgery status | CPT/HCPCS: 43659; 43775; 99024 ==

== ENCOUNTER 2024-01-30 10:22 | Outpatient (AMB) | payer OTHER, SELFPAY ==
--- NOTE | 2024-01-30 11:06 | A.OFFVIS_ITS ---
VS Expanded 01/30/24 11:24 BP 129/56 L Blood Pressure Location Rt brachial Blood Pressure Position Sitting Pulse 73 Pulse Source Pulse Oximeter Temp 98.1 F Temperature Source Temporal Artery Scan Pulse Oximetry 99 Oxygen Delivery Method Room Air Height 5 ft 5 in Weight 209 lb BMI 34.8 Body Fat % 43.4 Body Fat Mass 90.6 Fat Free Mass 118.4 Visceral Fat Rating 9.0 Body Water % 40.6 Body Water Mass 84.8 Muscle Mass/Score 112.4 Basal Metabolic Rate/Score 1,674 Intake Visit Reasons: (OV) PO LSG 01/25/24 Allergies No Known Allergies Allergy (Verified 01/25/24 08:33) HPI Comments Details: 33-year-old female returns to the office today in follow-up. She is approximately 5 days post sleeve gastrectomy performed on 01/25/2024. Tolerating 3 celebrate 4 in 1 shakes with 1 scoop each and approximately 40 oz of fluids total per day. She is moved her bowels. No complaints of pain. [facility] Medical History Anemia Surgical History (Updated 01/30/24 @ 11:12 by Ashlyn Milian CMA) S/P laparoscopic sleeve gastrectomy H/O carpal tunnel repair Tubal ligation status History of surgery on arm Hx of section Hx of appendectomy Family History Mother Heart disease Hypertension Brain tumor Diabetes Thyroid condition Father No problems noted. Daughter No problems noted. Son No problems noted. Son No problems noted. 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 Original weight on 01/03/2023 was 240.6 pounds and op weight was 217.3 pounds. Be sure to text Dr Tan exactly 1 week after surgery your weight from your home scale so he can adjust your meal plan. Continue meal plan until f/u cornelio Garcia in 2 weeks May shower, no submersion in bath for another week Continue abdominal binder with activity and exercise for the next 2 weeks. Exercise prior to surgery was stationary bike and may resume No abdominal exercises for 6 weeks post operatively Will be emailed link to post op video for review Reminded of the pace of drinking, 2 mL per minute, 1 oz/15 min.
[2024-01-30 11:24] VITALS: BP 129/56; PULSE 73; TEMP 36.7; O2SAT 99; BMI 34.8
== END 2024-01-30 11:23 | disposition home or self-care (01) ==
PROVIDERS: PCP Nurse Practitioner Family; Visit Provider Physician Assistant Surgical
DX: Z98.84 Bariatric surgery status (principal)
CPT/HCPCS: 99024

== ENCOUNTER → 2024-01-30 10:22 | Outpatient (BNVA) | payer OTHER, SELFPAY | PROVIDERS: PCP Nurse Practitioner Family; Visit Provider Physician Assistant Surgical | DX: Z98.84 Bariatric surgery status (principal) | CPT/HCPCS: 99212 ==

== ENCOUNTER 2024-05-16 09:32 | Emergency (ER) | payer OTHER, SELFPAY ==
--- NOTE | ~2024-05-16 | US_ITS ---
EXAMINATION: US PELVIS CLINICAL INFORMATION: Pelvic pain with abnormality on CT abdomen and pelvis COMPARISON: CT scan earlier today: Enlarged uterus with question of a left adnexal mass versus exophytic uterine fibroids. Transabdominal and endovaginal ultrasound is recommended for further evaluation. TECHNIQUE: Ultrasound of the pelvis is performed using both transabdominal and transvaginal transducers along with Doppler. Transvaginal imaging is performed due to inadequate visualization transabdominally. FINDINGS: Uterus: The uterus is anteverted and anteflexed measuring 9.8 x 8.2 x 7.4 cm. There is a large fundal uterine fibroid measuring 5.2 x 3.8 x 4.8 cm. The double wall endometrial thickness is 9 mm. Some fluid is seen within the endometrial cavity and a small 5 x 2 mm cystic structure is seen adjacent to the endometrium. Nabothian cysts are present in the cervix. Adnexa: Both ovaries are visualized. There is normal color flow to the adnexa. There is no ovarian torsion. Right ovary measures 3.5 x 2.0 x 2.3 cm for a volume of 7.3 mL. Left ovary measures 5.1 x 3.9 x 3.8 cm for a volume of 40 mL and contains a complex likely hemorrhagic cyst measuring 4.1 x 3.0 x 3.5 cm. There is also a paraovarian cyst on the left measuring 2.5 x 1.6 x 1.9 cm. Free fluid is present in both the anterior and posterior cul-de-sac US/US pelvic and transvaginal IMPRESSION: 1. Large fundal uterine fibroid. 2. Complex left ovarian cyst likely hemorrhagic. This was the mass seen on the CAT scan abutting the uterus. On the CT scan it was difficult to ascertain whether this was uterine or adnexal. Follow-up ultrasound in 6-12 weeks is recommended. 3. Free fluid in the cul-de-sac. Electronically signed by: Milan Tovar MD 05/16/2024 04:08 PM EDT
--- NOTE | ~2024-05-16 | CT_ITS ---
EXAMINATION: CT ABDOMEN AND PELVIS WITH CONTRAST CLINICAL INFORMATION: Lower abdominal pain COMPARISON: None available. TECHNIQUE: Multidetector volumetric images were obtained from the superior aspect of the liver through the pubic symphysis following administration 85 mL of Omnipaque 350 intravenous contrast. Sagittal and coronal reformatted images were obtained on the technologist's workstation. Oral contrast: No This CT examination was performed using dose optimization techniques as appropriate, variously including the following: *Automated exposure control *Adjustment of mA and/or kV according to patient size (this includes techniques or standardized protocols for targeted exams where dose is matched to indication/reason for exam; i.e. extremities or head) *Use of iterative reconstruction technique DLP: 600 mGy-cm FINDINGS: LUNG BASES: The visualized lung bases are unremarkable. LIVER, GALLBLADDER, AND BILIARY TREE: The liver is enlarged at nearly 19 cm in length. Attenuation is likely decreased but difficult to assess after IV contrast. No focal hepatic lesion or biliary ductal dilatation is present. The gallbladder is unremarkable with no evidence of radiopaque gallstones, gallbladder wall thickening, or obvious pericholecystic inflammatory changes. PANCREAS: Unremarkable. SPLEEN: Unremarkable. ADRENAL GLANDS: Unremarkable. KIDNEYS AND URETERS: The kidneys are normal in size, shape, and attenuation. No hydronephrosis, hydroureter, or calculi seen. No perinephric stranding. BLADDER: Poorly filled. No stones are seen. GASTROINTESTINAL TRACT: Status post gastric sleeve The small and large bowel are unremarkable. The appendix is not identified but there is no evidence of appendicitis. ABDOMINAL WALL: There is a tiny periumbilical hernia seen containing only fat LYMPH NODES: No retroperitoneal lymphadenopathy. VASCULAR: Unremarkable. PELVIC VISCERA: An anteverted uterus is enlarged. There is a question of a enlarged adnexal mass versus exophytic uterine fibroids on the left. Transabdominal and endovaginal ultrasound is recommended for further evaluation. There is some free fluid seen between the uterus and bladder. OSSEOUS STRUCTURES: Unremarkable. CT/CT abdomen pelvis w IV con IMPRESSION: 1. Enlarged uterus with question of a left adnexal mass versus exophytic uterine fibroids. Transabdominal and endovaginal ultrasound is recommended for further evaluation. 2. Incidental note made of enlarged fatty liver, gastric sleeve and tiny periumbilical hernia containing only fat. Fleischner guidelines were followed. Electronically signed by: Milan Tovar MD 05/16/2024 12:52 PM EDT RP
[2024-05-16 09:33] VITALS: BP 122/64; PULSE 81; RESP 16; TEMP 36.9; O2SAT 98; BMI 30.5
[2024-05-16 09:51] LABS: Basophils Percent Auto 0.4 % (0-2); Eosinophils Absolute Auto 0.1 X10*3/uL (0.0-0.4); Eosinophils Percent Auto 0.7 % (0-4); Hematocrit 32.3 % (37.0-47.0); Hemoglobin 10.1 g/dl (12.0-16.0); Imm Gran Abs Auto 0.02 X10*3/uL (0.00-0.03); Imm Gran Pct Auto 0.2 % (0.0-0.4); Lymphocytes Absolute Auto 2.2 X10*3/uL (1.2-4.9); Lymphocytes Percent Auto 25.7 % (20-40); MANUAL DIFF FLAG NO; Mean Corpuscular HGB Conc 31.3 g/dl (31.0-35.0); Mean Corpuscular Hemoglobin 22.2 pg (27.0-33.0); Mean Corpuscular Volume 71.1 fL (80.0-98.0); Mean Platelet Volume 10.7 fL (9.4-12.3); Monocytes Absolute Auto 0.5 X10*3/uL (0.1-1.2); Monocytes Percent Auto 6.4 % (2-11); Neutrophils Absolute Auto 5.6 x10*3/uL (2.0-8.3); Neutrophils Percent Auto 66.6 % (45-73); Platelet Count 360 X10*3/uL (160-400); Red Blood Count 4.54 X10*6/uL (4.20-5.50); Red Cell Distribution Width 15.1 % (11.0-16.0); White Blood Count 8.5 X10*3/uL (4.8-10.8)
[2024-05-16 10:04] VITALS: TEMP 37.1
[2024-05-16 10:05] LABS: Anion Gap 10 (12-20); Blood Urea Nitrogen 9 mg/dL (9-16); Calcium 9.4 mg/dL (8.4-10.2); Carbon Dioxide 25 mmol/L (22-29); Chloride 110 mmol/L (96-108); Estimated Glomerular Filt Rate > 60; Glucose Random 91 mg/dL (60-115); Potassium 4.1 mmol/L (3.3-5.1); Sodium 141 mmol/L (135-145)
--- NOTE | 2024-05-16 10:24 | ED_ITS ---
HPI - Female Genitourinary General Chief complaint: Urogenital-Female Stated complaint: abd pain-fever Time Seen by Provider: 05/16/24 10:14 Source: patient Mode of arrival: ambulatory Limitations: no limitations History of Present Illness ED Provider: Leonila Blank PA-C HPI Narrative: 34 yo female presents with vaginal, lower abdominal pain since 1600 yesterday. Pain began gradually and she describes it as a dull, constant pain at the center of her vagina. Woke up this morning with pain that radiates suprapubically and into flanks bilaterally. Has tried ibuprofen and midol, denies improvement. She now has burning pain with peeing, denies incomplete voiding, fever, chills. endorses nausea, denies vomiting. Her LMP was 3 weeks ago, (stillbirth 9 years ago), s/p tubal ligation. She is sexually active with her , denies condom use. Onset (ago): hour(s) Location of symptoms: external genitalia, suprapubic, LLQ and flank Severity: mild Female Urogenital Radiation: Suprapubic and LLQ Quality of pain: dull and burning Consistency: constant Vaginal discharge: none Vaginal bleeding: none Urinary symptoms: Dysuria and Flank Pain Exacerbating factors: urination Relieving factors: none Associated symptoms: abdominal pain Treatment prior to arrival: none Sexual activity: Yes Patient : No Related Data Previous Rx's ?Medication ?Instructions ?Recorded ondansetron 4 mg disintegrating 4 mg PO Q12H nausea and vomiting 01/12/24 tablet #20 tabs pantoprazole 40 mg tablet,delayed 40 mg PO DAILY #90 tabs 01/12/24 release sucralfate 100 mg/mL oral 10 ml PO BID #600 mL 01/12/24 suspension docusate sodium 100 mg capsule 100 mg PO DAILY #90 caps 02/17/24 (Colace) Allergies Allergy/AdvReac Type Severity Reaction Status Date / Time No Known Allergies Allergy Verified 05/16/24 09:37 Review of Systems 2 Constitutional: Constitutional: Reports no additional constitutional complaints, Denies chills, Denies fever(s) and Denies night sweats Eyes: Eyes: Reports no additional eye complaints, Denies blurry vision, Denies change in vision, Denies diplopia, Denies eye discharge, Denies loss of vision and Denies eye pain ENT: Denies dizziness Cardiovascular: Cardiovascular: Reports no additional cardiovascular complaints, Denies chest pain, Denies lightheadedness, Denies Loss of Consciousness and Denies dyspnea Respiratory: Respiratory: Reports no additional respiratory complaints and Denies dyspnea Gastrointestinal: Gastrointestinal: Reports no additional gastrointestinal complaints, Denies abdominal pain, Denies melena, Denies hematochezia, Denies change in bowel habits, Denies change in stool character, Reports GI cramping, Reports nausea and Denies vomiting Genitourinary: Genitourinary: Denies hematuria, Denies urinary frequency, Reports dysuria, Reports flank pain, Denies urinary incontinence, Denies urinary hesitancy, Denies urinary urgency, Denies vaginal discharge and Denies vaginal pruritus Musculoskeletal: Musculoskeletal: Reports no additional musculoskeletal complaints, Denies numbness and Denies tingling Neurologic: Denies dizziness, Denies loss of vision, Denies numbness and Denies tingling Psychiatric: Psychiatric: Reports no additional psychiatric complaints Endocrine: Endocrine: Reports no additional endocrine complaints Hematologic/Lymphatic: Hematologic/Lymphatic: Reports no additional hematologic/lymphatic complaints Allergic/Immunologic: Allergic/Immunologic: Reports no additional allergic/immunologic complaints [facility] Past Medical History Medical History (Updated 05/17/24 @ 00:01 by Background Daemon) Pre-op evaluation Cervical cancer screening Well woman exam with routine gynecological exam History of uterine anomaly Carpal tunnel syndrome of left wrist Carpal tunnel syndrome, right Paresthesia of right upper extremity Neuropathy Morbid obesity Anemia Surgical History (Updated 02/03/24 @ 00:03 by Background Daemon) S/P laparoscopic sleeve gastrectomy H/O carpal tunnel repair Tubal ligation status History of surgery on arm Hx of section Hx of appendectomy Family History Family History Mother Heart disease Hypertension Brain tumor Diabetes Thyroid condition Father No problems noted. Daughter No problems noted. Son No problems noted. Son No problems noted. 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 Cognitive needs: No Hearing needs: No Vision needs: Yes (glasses) Physical Exam 2 Vital Signs: Vital Signs: Last Vital Signs Temp 98.4 F 05/16/24 16:21 Pulse 81 05/16/24 16:21 Resp 16 05/16/24 16:21 BP 128/67 05/16/24 16:21 Pulse Ox 98 05/16/24 16:21 O2 Del Method Room Air 05/16/24 16:21 BMI result Body Mass Index 30.5 Const: General: cooperative, no acute distress, alert and awake Nutritional Appearance: well nourished Orientation/consciousness: patient oriented x3 Limitations: no limitations HEENT: Head: Yes normal to inspection and Yes atraumatic Ears: hearing grossly normal bilaterally and external ears normal General nose exam: Normal external nose present, no nasal discharge noted and no epistaxis Face and sinus: Yes normal facial exam, No abrasion and No laceration Mouth: Normal oral and palatal mucosa present, no drooling and no muffled voice Eyes: General: appearance normal, both eyes and all related structures P eriorbital: periorbital findings normal Eyelids: Yes eyelids normal C onjunctivae: conjunctivae normal Pupils: Equal, round and reactive pupils present EOM: EOMs intact bilaterally Neck: Neck: Yes normal visual inspection, Yes full ROM and Yes no lymphadenopathy Chest: Chest palpation & inspection: normal inspection of the chest Resp: Effort & Inspection: normal respiratory effort and able to speak in complete sentences GI: Inspection: Yes normal to inspection Percussion: Yes normal to percussion Auscultation: normal bowel sounds : General: Yes CVA tenderness (+ on the left) Back/Spine/Pelvis: Back: CVA tenderness (+ on the left) Neuro: General: patient oriented x3 and moves all extremities Cranial nerves: Yes Equal, round and reactive pupils present Cognition (Neuro): n ormal cognition Extrem: General: Yes normal to inspection, Yes full ROM and Yes capillary refill normal Psych: Appearance: grossly normal Mental Status: mental status grossly normal Affect: normal affect Attitude: cooperative Thought process: N ormal thought process present Thought content: Normal thought content present Insight: Good insight present (Psych) Medications Administered Discontinued Medications Generic Name Dose Route Start Last Admin Trade Name Lukas PRN Reason Stop Dose Admin Iohexol 85 ml 05/16/24 10:59 05/16/24 11:00 Iohexol 350 Mg/Ml 75 Ml Infus..Btl IV 05/16/24 11:00 85 ml ONCE ONE Administration Ketorolac Tromethamine 15 mg 05/16/24 10:41 05/16/24 11:06 Ketorolac Tromethamine 15 Mg/Ml Vial IVPUSH 05/16/24 10:42 15 mg ONCE ONE Administration Morphine Sulfate 4 mg 05/16/24 12:59 05/16/24 13:14 Morphine Sulfate 4 Mg/Ml Cartridge IVPUSH 05/16/24 13:00 4 mg ONCE ONE Administration Protocol Ondansetron HCl 4 mg 05/16/24 12:59 05/16/24 13:14 Ondansetron Hcl 4 Mg/2 Ml Vial IVPUSH 05/16/24 13:00 4 mg ONCE ONE Administration Medical Decision Making Medical Decision Making MDM Narrative: Patient is a 34 year old assigned female at with a history of fibromyalgia, SIMI, depression, ADHD, and sleeve gastrectomy presenting to the emergency department today with abdominal pain. Patient's physical exam was as noted in the physical exam portion of this note. Patient's blood work was unremarkable. Patient's urine showed no acute process. Patient's abdominal/pelvis CT showed an enlarged uterus with a question of a left adnexal mass vs. fibroids. Radiology recommended US for further evaluation. US of the pelvis was performed that showed a large fundal uterine fibroid as well as a complex left ovarian cyst that is likely hemorrhagic. I explained my physical exam findings as well as all test results to the patient. I answered all questions asked by the patient. Patient received IV pain medication which upon re-evaluation she stated it helped her symptoms significantly. I stressed the importance of the patient taking her medication as directed (either prescribed or as the over the counter packaging recommends). I stressed the importance of the patient following up with her primary care provider and an OBGYN. I stressed the importance of the patient returning to the emergency department immediately if her symptoms were to worsen or if she were to develop any dizziness, shortness of breath, difficulty breathing, chest pain, blurry vision, loss of vision, nausea, vomiting, abdominal pain, fever, chills, back pain, or any other complaints. Patient verbalized agreement and understanding with this treatment plan and discharge. Differential Diagnosis Differential Diagnoses: The differential diagnosis associated with the presentation includes Uterine mass Uterine fibroid Admission/Observation Consideration of admission/observation: Escalation of care including admission/observation considered Patient would have been admitted to the hospital had her work up had any findings where hospital admission was appropriate and her clinical presentation warranted hospital admission. Lab Data [facility] Lab Attestation statement: I reviewed the patient's lab results. My interpretation of these results are in the [facility] Rationale portion of this note. 05/16/24 09:42 05/16/24 09:42 Labs: Lab Results 05/16/24 05/16/24 05/16/24 Range/Units 09:42 10:18 12:33 WBC 8.5 (4.8-10.8) X10*3/uL RBC 4.54 (4.20-5.50) X10*6/uL Hgb 10.1 L (12.0-16.0) g/dl Hct 32.3 L (37.0-47.0) % MCV 71.1 L (80.0-98.0) fL MCH 22.2 L (27.0-33.0) pg MCHC 31.3 (31.0-35.0) g/dl RDW 15.1 (11.0-16.0) % Plt Count 360 (160-400) X10*3/uL MPV 10.7 (9.4-12.3) fL Immature Gran % (Auto) 0.2 (0.0-0.4) % Neut % (Auto) 66.6 (45-73) % Lymph % (Auto) 25.7 (20-40) % [place] % (Auto) 6.4 (2-11) % Eos % (Auto) 0.7 (0-4) % Baso % (Auto) 0.4 (0-2) % Lymph # (Auto) 2.2 (1.2-4.9) X10*3/uL [place] # (Auto) 0.5 (0.1-1.2) X10*3/uL Eos # (Auto) 0.1 (0.0-0.4) X10*3/uL Baso # (Auto) 0.0 (0.0-0.2) X10*3/uL Abs Immat Gran (auto) 0.02 (0.00-0.03) X10*3/uL Absolute Neuts (auto) 5.6 (2.0-8.3) x10*3/uL Absolute Nucleated RBC 0.000 (0.0-0.012) X10*3/uL Nucleated RBC % (auto) 0.0 (0.0-0.2) /100WBC Sodium 141 (135-145) mmol/L Potassium 4.1 (3.3-5.1) mmol/L Chloride 110 H (96-108) mmol/L Carbon Dioxide 25 (22-29) mmol/L Anion Gap 10 L (12-20) BUN 9 (9-16) mg/dL Creatinine 0.76 (0.5-1.4) mg/dL Estim Creat Clear Calc 110.0 Estimated GFR > 60 Random Glucose 91 (60-115) mg/dL Calcium 9.4 (8.4-10.2) mg/dL Total Bilirubin 0.4 (0.0-1.0) mg/dL Direct Bilirubin 0.2 (0.0-0.5) mg/dL AST 12 (5-31) U/L ALT 14 (0-31) U/L Alkaline Phosphatase 81 (39-117) U/L Total Protein 7.0 (6.5-8.0) g/dL Albumin 4.2 (3.5-5.0) g/dL Urine Color Yellow Urine Appearance Clear Urine pH 6.0 (5.0-9.0) Ur Specific Lem[place] <= 1.005 (1.005-1.025) Urine Protein Negative (Neg-Trace) mg/dL Urine Glucose (UA) Negative (Negative) mg/dL Urine Ketones Negative (Negative) mg/dL Urine Blood Negative (Negative) Urine Nitrite Negative (Negative) Ur Leukocyte Esterase Negative (Negative) Urine Test NEGATIVE (NEGATIVE) Chlam trachomat DNA PCR NOT DETECTED (Not Detect.) N.gonorrhoeae DNA (PCR) NOT DETECTED (Not Detect.) T. vaginalis (PCR) NOT DETECTED (Not Detect) Bact Vaginosis (PCR) NEGATIVE (Negative) C. krusei/glabrata (PCR) NOT DETECTED (Not Detect) Erendira group (PCR) NOT DETECTED (Not Detect) Independent Interpretation I performed an independent interpretation of an: CT Scan Interpretation: My interpretation is in agreement with the radiologist's impression of this imaging study. L EXAMINATION: CT ABDOMEN AND PELVIS WITH CONTRAST CLINICAL INFORMATION: Lower abdominal pain COMPARISON: None available. TECHNIQUE: Multidetector volumetric images were obtained from the superior aspect of the liver through the pubic symphysis following administration 85 mL of Omnipaque 350 intravenous contrast. Sagittal and coronal reformatted images were obtained on the technologist's workstation. Oral contrast: No This CT examination was performed using dose optimization techniques as appropriate, variously including the following: *Automated exposure control *Adjustment of mA and/or kV according to patient size (this includes techniques or standardized protocols for targeted exams where dose is matched to indication/reason for exam; i.e. extremities or head) *Use of iterative reconstruction technique DLP: 600 mGy-cm FINDINGS: LUNG BASES: The visualized lung bases are unremarkable. LIVER, GALLBLADDER, AND BILIARY TREE: The liver is enlarged at nearly 19 cm in length. Attenuation is likely decreased but difficult to assess after IV contrast. No focal hepatic lesion or biliary ductal dilatation is present. The gallbladder is unremarkable with no evidence of radiopaque gallstones, gallbladder wall thickening, or obvious pericholecystic inflammatory changes. PANCREAS: Unremarkable. SPLEEN: Unremarkable. ADRENAL GLANDS: Unremarkable. KIDNEYS AND URETERS: The kidneys are normal in size, shape, and attenuation. No hydronephrosis, hydroureter, or calculi seen. No perinephric stranding. BLADDER: Poorly filled. No stones are seen. GASTROINTESTINAL TRACT: Status post gastric sleeve The small and large are unremarkable. The appendix is not identified but there is no evidence of appendicitis. ABDOMINAL WALL: There is a tiny periumbilical hernia seen containing only fat LYMPH NODES: No retroperitoneal lymphadenopathy. VASCULAR: Unremarkable. PELVIC VISCERA: An anteverted uterus is enlarged. There is a question of a enlarged adnexal mass versus exophytic uterine fibroids on the left. Transabdominal and endovaginal ultrasound is recommended for further evaluation. There is some free fluid seen between the uterus and bladder. OSSEOUS STRUCTURES: Unremarkable. CT/CT abdomen pelvis w IV con IMPRESSION: 1. Enlarged uterus with question of a left adnexal mass versus exophytic uterine fibroids. Transabdominal and endovaginal ultrasound is recommended for further evaluation. 2. Incidental note made of enlarged fatty liver, gastric sleeve and tiny periumbilical hernia containing only fat. Fleischner guidelines were followed. Electronically signed by: Milan Tovar MD 05/16/2024 12:52 PM EDT RP Dictated By: Milan Tovar MD Signed By: Electronically signed by Milan Tovar MD 05/16/24 1252 EXAMINATION: US PELVIS CLINICAL INFORMATION: Pelvic pain with abnormality on CT abdomen and pelvis COMPARISON: CT scan earlier today: Enlarged uterus with question of a left adnexal mass versus exophytic uterine fibroids. Transabdominal and endovaginal ultrasound is recommended for further evaluation. TECHNIQUE: Ultrasound of the pelvis is performed using both transabdominal and transvaginal transducers along with Doppler. Transvaginal imaging is performed due to inadequate visualization transabdominally. FINDINGS: Uterus: The uterus is anteverted and anteflexed measuring 9.8 x 8.2 x 7.4 cm. There is a large fundal uterine fibroid measuring 5.2 x 3.8 x 4.8 cm. The double wall endometrial thickness is 9 mm. Some fluid is seen within the endometrial cavity and a small 5 x 2 mm cystic structure is seen adjacent to the endometrium. Nabothian cysts are present in the cervix. Adnexa: Both ovaries are visualized. There is normal color flow to the adnexa. There is no ovarian torsion. Right ovary measures 3.5 x 2.0 x 2.3 cm for a volume of 7.3 mL. Left ovary measures 5.1 x 3.9 x 3.8 cm for a volume of 40 mL and contains a complex likely hemorrhagic cyst measuring 4.1 x 3.0 x 3.5 cm. There is also a paraovarian cyst on the left measuring 2.5 x 1.6 x 1.9 cm. Free fluid is present in both the anterior and posterior cul-de-sac US/US pelvic and transvaginal IMPRESSION: 1. Large fundal uterine fibroid. 2. Complex left ovarian cyst likely hemorrhagic. This was the mass seen on the CAT scan abutting the uterus. On the CT scan it was difficult to ascertain whether this was uterine or adnexal. Follow-up ultrasound in 6-12 weeks is recommended. 3. Free fluid in the cul-de-sac. Electronically signed by: Milan Tovar MD 05/16/2024 04:08 PM EDT RP Dictated By: Milan Tovar MD Signed By: Electronically signed by Milan Tovar MD 05/16/24 1608 Radiology Impression Discussion of test interpretation with radiology: I have reviewed the radiologist's reading. Critical Care Time Critical Care Time Critical Care Time: Yes Total Critical Care Time: 38 Attestation: I spent 38 minutes of Critical Care Time with this patient. This does not include time spent on separately reported billable procedures. Discharge Plan Discharge Clinical Impression: Abdominal pain, Uterine fibroid, Ovarian cyst Patient Disposition: Home, Self-Care Instructions: Ovarian Cyst (ED), Abdominal Pain (ED) Additional Instructions: Follow up with your primary care provider and an OBGYN. Return to the emergency department immediately if your symptoms worsen or if you develop any dizziness, shortness of breath, difficulty breathing, chest pain, blurry vision, loss of vision, nausea, vomiting, abdominal pain, fever, chills, back pain, or any other complaints. Prescriptions: No Action docusate sodium [Colace] 100 mg capsule 100 mg PO DAILY Qty: 90 0RF pantoprazole 40 mg tablet,delayed release (DR/EC) 40 mg PO DAILY Qty: 90 0RF sucralfate 100 mg/mL suspension 10 ml PO BID Qty: 600 2RF ondansetron 4 mg tablet,disintegrating 4 mg PO Q12H Qty: 20 0RF Rx Instructions: Only take one every 12 hours as needed if you have nausea Referrals: [facility] Family Medicine [Provider Group] (Call to establish and follow up with a primary care provider. If you already have a primary care provider, please follow up with them.) [facility] [Provider Group] (Call to establish and follow up with a primary care provider. If you already have a primary care provider, please follow up with them.) [facility] Primary [facility] [Provider Group] (Call to establish and follow up with a primary care provider. If you already have a primary care provider, please follow up with them.) Jonathan Mccauley MD [Physician] - (Call to establish and follow up with an OBGYN.) Interventions: ED Discharge Assessment Last Done: 05/16/24 16:21 Discharge Date/Time: 05/16/24 16:25 Print Language: French
[2024-05-16 10:25] LABS: Appearance Urine Clear; Color Urine Yellow; Glucose Urine UA Negative (Negative); Leukocyte Esterase Urine Negative (Negative); Nitrite Urine Negative (Negative); Specific Gravity - Urine <= 1.005 (1.005-1.025); Urine Blood Negative (Negative); Urine Ketones Negative (Negative); Urine Protein Negative (Neg-Trace)
[2024-05-16 10:28] LABS: UPreg QC Valid YES
[2024-05-16 10:29] LABS: Urine Pregnancy NEGATIVE (NEGATIVE)
[2024-05-16] MEDS: iohexoL 350 MG/ML 75 ML INFUS..BTL 85 ML IV (11:00)
[2024-05-16] MEDS: Ketorolac Tromethamine 15 MG/ML VIAL IVPUSH (11:06)
[2024-05-16 11:07] LABS: Alanine Aminotransferase 14 U/L (0-31); Albumin Level 4.2 g/dL (3.5-5.0); Alkaline Phosphatase 81 U/L (39-117); Aspartate Amino Transferase 12 U/L (5-31); Bilirubin Direct 0.2 mg/dL (0.0-0.5); Bilirubin Total 0.4 mg/dL (0.0-1.0)
--- NOTE | 2024-05-16 11:07 | PC.NURSE ---
Addendum entered by Joy Garduno 05/16/24 11:08: Left AC* Original Note: IV established in CT scan, 20 RAC. medicated per the OCT.
[2024-05-16 12:10] VITALS: BP 121/61; PULSE 83; RESP 16; TEMP 37; O2SAT 99
[2024-05-16 13:14] VITALS: RESP 18
[2024-05-16] MEDS: Morphine Sulfate 4 MG/ML CARTRIDGE IVPUSH (13:14)
[2024-05-16] MEDS: ondansetron HCL 4 MG/2 ML VIAL IVPUSH (13:14)
[2024-05-16 14:00] VITALS: BP 128/67; PULSE 81; RESP 16; TEMP 36.9; O2SAT 98
[2024-05-16 14:59] LABS: Bacterial Vaginosis PCR NEGATIVE (Negative); Candida Group PCR NOT DETECTED (Not Detect); Candida glab krusei PCR NOT DETECTED (Not Detect); Trichomonas vaginalis PCR NOT DETECTED (Not Detect)
[2024-05-16 15:27] LABS: CT PCR NOT DETECTED (Not Detect.); NG PCR NOT DETECTED (Not Detect.)
--- NOTE | 2024-05-16 15:45 | MHC.EDTECH ---
Patient got changed over and call salvador within PT reach.
[2024-05-16 16:21] VITALS: BP 128/67; PULSE 81; RESP 16; TEMP 36.9; O2SAT 98
== END 2024-05-16 16:25 | disposition home or self-care (01) ==
PROVIDERS: Physician Assistant Medical; Emergency Provider Student in an Organized Health Care Education/Training Program
DX: R10.30 Lower abdominal pain, unspecified (principal); R50.9 Fever, unspecified; R10.32 Left lower quadrant pain; R30.0 Dysuria; D25.9 Leiomyoma of uterus, unspecified; N83.202 Unspecified ovarian cyst, left side; Z79.899 Other long term (current) drug therapy
CPT/HCPCS: 0352U; 36415; 74177; 76830; 76856; 80048; 80076; 81003; 81025; 85025; 87491; 87591; 96374; 96375; 99284; 99285; J1885; J2270; J2405; Q9967

== ENCOUNTER 2024-05-23 10:41 | Outpatient (AMB) | payer OTHER, SELFPAY ==
--- NOTE | 2024-05-23 10:42 | MHC.OFFVIS ---
Intake Visit Reasons: TV Referral ?'s Allergies No Known Allergies Allergy (Verified 05/23/24 10:42) Medication List - Last Reconciled 05/23/24 by Trisha Huber CNM pantoprazole 40 mg PO DAILY Is last menstrual period known: Yes Last menstrual period: 04/29/24 HPI HPI TV Referral ?'s: Details: Patient arrange this visit yesterday because she was seen in the emergency room for abdominal pain and was referred to Gynecology but her issues more complex then can be cared for at this facility so she was re redirected to [facility]. And she has questions. She says she went because she was having pretty severe pain and I did review the CT scan and ultrasound with her she said she did not understand everything but they said that she might have had a cyst that exploded. She says pain is so bad it is hard go to bathroom she is getting constipated because hard to let pool about. She had gastric bypass surgery this year and has lost 80 lb so far she says she takes a medicine [id number] to help her go the bathroom and by her description it might be Colace but she is not exactly sure what it is but it is not helping. I recommend that she call her provider's in the weight loss program to have a conversation about what is their best recommendation to avoid straining and that if she has severe pain she should go to the [facility] emergency. But in terms of dealing with her uterine fibroid and complex ovarian cyst she would best have her needs met by seeking care at 1 of the [facility] practices I did give her the telephone numbers for [facility], [phone]; and [facility] beater room supervisor group [phone]; and [facility] [phone]. If she has difficulty she can get back to us be also trying to send a referral as well to facilitate her being seen. [facility], [facility] Medical History (Updated 05/23/24 @ 10:50 by Trisha Huber CNM) Pre-op evaluation Cervical cancer screening Well woman exam with routine gynecological exam History of uterine anomaly Carpal tunnel syndrome of left wrist Carpal tunnel syndrome, right Paresthesia of right upper extremity Neuropathy Morbid obesity Anemia Surgical History (Updated 02/03/24 @ 00:03 by Shena Kan) S/P laparoscopic sleeve gastrectomy H/O carpal tunnel repair Tubal ligation status History of surgery on arm Hx of section Hx of appendectomy Family History Mother Heart disease Hypertension Brain tumor Diabetes Thyroid condition Father No problems noted. Daughter No problems noted. Son No problems noted. Son No problems noted. 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 [employer] Cognitive needs: No Hearing needs: No Vision needs: Yes (glasses) Female Reproductive History Menstrual Age of Menarche: 13 Duration of menses: 3-5 days Date of last menstrual period: 04/29/24 control method: permanent sterilization Total pregnancies: 5 Full term: 3 Date of last pap smear: 09/08/23 (negative) Telehealth Telehealth Telehealth Platform: Telephone Location of provider rendering services: practice address Location of patient: address on file Patient Identification confirmed using: Name, : Yes Telehealth method: voice only Patient verbally consented to treatment: Yes Patient verbally consented to billing insurance company: Yes Patient informed of any privacy concerns related to visit: Yes Minutes spent on Phone/Video with Pt.: 15 (30min spent reviewing chart and making plan, 15 speaking w pt ) Results Reviewed Results Reviewed: Patient: Jodi Santizo MR#: [id number] : 1990 Acct:[id number] Age/Sex: 34 / F ADM Date: 05/16/24 Loc: HO.ED Attending Dr: Ordering Physician: Leonila Blank Date of Service: 05/16/24 Procedure(s): US pelvic and transvaginal Accession Number(s): [id number] cc: Leonila Blank; Physician,Unknown ~ EXAMINATION: US PELVIS CLINICAL INFORMATION: Pelvic pain with abnormality on CT abdomen and pelvis COMPARISON: CT scan earlier today: Enlarged uterus with question of a left adnexal mass versus exophytic uterine fibroids. Transabdominal and endovaginal ultrasound is recommended for further evaluation. TECHNIQUE: Ultrasound of the pelvis is performed using both transabdominal and transvaginal transducers along with Doppler. Transvaginal imaging is performed due to inadequate visualization transabdominally. FINDINGS: Uterus: The uterus is anteverted and anteflexed measuring 9.8 x 8.2 x 7.4 cm. There is a large fundal uterine fibroid measuring 5.2 x 3.8 x 4.8 cm. The double wall endometrial thickness is 9 mm. Some fluid is seen within the endometrial cavity and a small 5 x 2 mm cystic structure is seen adjacent to the endometrium. Nabothian cysts are present in the cervix. Adnexa: Both ovaries are visualized. There is normal color flow to the adnexa. There is no ovarian torsion. Right ovary measures 3.5 x 2.0 x 2.3 cm for a volume of 7.3 mL. Left ovary measures 5.1 x 3.9 x 3.8 cm for a volume of 40 mL and contains a complex likely hemorrhagic cyst measuring 4.1 x 3.0 x 3.5 cm. There is also a paraovarian cyst on the left measuring 2.5 x 1.6 x 1.9 cm. Free fluid is present in both the anterior and posterior cul-de-sac US/US pelvic and transvaginal IMPRESSION: 1. Large fundal uterine fibroid. 2. Complex left ovarian cyst likely hemorrhagic. This was the mass seen on the CAT scan abutting the uterus. On the CT scan it was difficult to ascertain whether this was uterine or adnexal. Follow-up ultrasound in 6-12 weeks is recommended. 3. Free fluid in the cul-de-sac. Electronically signed by: Milan Tovar MD 05/16/2024 04:08 PM EDT Dictated By: Milan Tovar MD Signed By: <Electronically signed by Milan Tovar MD in OV> 05/16/24 1608 DD/ 1358 TD/TT: 05/16/24 1431 Roastmaster: SS Patient: Jodi Santizo MR#: [id number] : 1990 Acct:[id number] Age/Sex: 34 / F ADM Date: 05/16/24 Loc: HO.ED Attending Dr: Ordering Physician: Leonila Blank Date of Service: 05/16/24 Procedure(s): CT abdomen pelvis w IV con Accession Number(s): [id number] cc: Leonila Blank; Physician,Unknown ~ EXAMINATION: CT ABDOMEN AND PELVIS WITH CONTRAST CLINICAL INFORMATION: Lower abdominal pain COMPARISON: None available. TECHNIQUE: Multidetector volumetric images were obtained from the superior aspect of the liver through the pubic symphysis following administration 85 mL of Omnipaque 350 intravenous contrast. Sagittal and coronal reformatted images were obtained on the technologist's workstation. Oral contrast: No This CT examination was performed using dose optimization techniques as appropriate, variously including the following: *Automated exposure control *Adjustment of mA and/or kV according to patient size (this includes techniques or standardized protocols for targeted exams where dose is matched to indication/reason for exam; i.e. extremities or head) *Use of iterative reconstruction technique DLP: 600 mGy-cm FINDINGS: LUNG BASES: The visualized lung bases are unremarkable. LIVER, GALLBLADDER, AND BILIARY TREE: The liver is enlarged at nearly 19 cm in length. Attenuation is likely decreased but difficult to assess after IV contrast. No focal hepatic lesion or biliary ductal dilatation is present. The gallbladder is unremarkable with no evidence of radiopaque gallstones, gallbladder wall thickening, or obvious pericholecystic inflammatory changes. PANCREAS: Unremarkable. SPLEEN: Unremarkable. ADRENAL GLANDS: Unremarkable. KIDNEYS AND URETERS: The kidneys are normal in size, shape, and attenuation. No hydronephrosis, hydroureter, or calculi seen. No perinephric stranding. BLADDER: Poorly filled. No stones are seen. GASTROINTESTINAL TRACT: Status post gastric sleeve The small and large bowel are unremarkable. The appendix is not identified but there is no evidence of appendicitis. ABDOMINAL WALL: There is a tiny periumbilical hernia seen containing only fat LYMPH NODES: No retroperitoneal lymphadenopathy. VASCULAR: Unremarkable. PELVIC VISCERA: An anteverted uterus is enlarged. There is a question of a enlarged adnexal mass versus exophytic uterine fibroids on the left. Transabdominal and endovaginal ultrasound is recommended for further evaluation. There is some free fluid seen between the uterus and bladder. OSSEOUS STRUCTURES: Unremarkable. CT/CT abdomen pelvis w IV con IMPRESSION: 1. Enlarged uterus with question of a left adnexal mass versus exophytic uterine fibroids. Transabdominal and endovaginal ultrasound is recommended for further evaluation. 2. Incidental note made of enlarged fatty liver, gastric sleeve and tiny periumbilical hernia containing only fat. Fleischner guidelines were followed. Electronically signed by: Milan Tovar MD 05/16/2024 12:52 PM EDT RP Dictated By: Milan Tovar MD Signed By: <Electronically signed by Milan Tovar MD in OV> 05/16/24 1252 DD/ 1045 TD/TT: 05/16/24 1100 Roastmaster: MALINA Assessment & Plan Assessment & Plan (1) Uterine fibroid: Comment: noted on ct scan and u/s at ED- to be seen at [facility] Code(s): D25.9 - Leiomyoma of uterus, unspecified Category: Medical (2) Ovarian cyst, complex: Comment: noted per ct scan and u/s at ED, to be seen at [facility] Code(s): N83.299 - Other ovarian cyst, unspecified side Category: Medical (3) Constipation: Code(s): K59.00 - Constipation, unspecified Category: Medical (4) S/P laparoscopic sleeve gastrectomy: Code(s): Z98.84 - Bariatric surgery status Category: Surgical Plan Patient arrange this visit yesterday because she was seen in the emergency room for abdominal pain and was referred to Gynecology but her issues more complex then can be cared for at this facility so she was re redirected to [facility]. And she has questions. She says she went because she was having pretty severe pain and I did review the CT scan and ultrasound with her she said she did not understand everything but they said that she might have had a cyst that exploded. She says pain is so bad it is hard go to bathroom she is getting constipated because hard to let pool about. She had gastric bypass surgery this year and has lost 80 lb so far she says she takes a medicine [id number] to help her go the bathroom and by her description it might be Colace but she is not exactly sure what it is but it is not helping. I recommend that she call her provider's in the weight loss program to have a conversation about what is their best recommendation to avoid straining and that if she has severe pain she should go to the [facility] emergency. But in terms of dealing with her uterine fibroid and complex ovarian cyst she would best have her needs met by seeking care at 1 of the [facility] practices I did give her the telephone numbers for [facility], [phone]; and [facility] beater room supervisor group [phone]; and [facility] [phone]. If she has difficulty she can get back to us be also trying to send a referral as well to facilitate her being seen. 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
== END 2024-05-23 11:19 | disposition home or self-care (01) ==
LOC: HO.HWSM 10:41
PROVIDERS: Visit Provider Advanced Practice Midwife
DX: D25.9 Leiomyoma of uterus, unspecified (principal); N83.299 Other ovarian cyst, unspecified side; K59.00 Constipation, unspecified; Z98.84 Bariatric surgery status
CPT/HCPCS: 99213

== ENCOUNTER → 2024-05-23 10:41 | Outpatient (BNVA) | payer OTHER, SELFPAY | PROVIDERS: Visit Provider Advanced Practice Midwife ==

== ENCOUNTER 2025-01-21 17:21 | Emergency (ER) | payer OTHER, SELFPAY ==
[2025-01-21] VITALS (8 sets, daily range): BP systolic 90–143; BP diastolic 33–56; PULSE 58–82; RESP 15–28; TEMP 36.2–37; O2SAT 95–100; BMI 32.1
--- NOTE | 2025-01-21 | ECG_ITS ---
Test Reason : SINCOPEE Blood Pressure : */* mmHG Vent. Rate : 76 BPM Atrial Rate : 76 BPM P-R Int : 150 ms QRS Dur : 80 ms QT Int : 406 ms P-R-T Axes : 27 51 31 degrees QTcB Int : 456 ms Normal sinus rhythm Normal ECG When compared with ECG of 19-Jan-2024 07:12, No significant change was found Referred By: Rambo Melara Electronically Signed By: MEENU FLOWERS MD
--- NOTE | ~2025-01-21 | US_ITS ---
CLINICAL HISTORY: vaginal bleeding. ovarian cyst rupture torsions US pelvis transabdominal and transvaginal with Doppler Comparison: None Findings: Transabdominal scanning performed for overall anatomy. Transvaginal scanning performed for additional detail. Anteverted uterus is 11.3 cm length. Interval increase in size of the fibroid currently measuring 7.4 x 6.6 x 6.5 cm, previously 5.2 x 3.8 x 4.8 cm. No endometrial lesion, 7 mm thickness. Right ovary is not visualized. Left ovary 3.0 x 2.1 x 2.3 cm. Normal color Doppler with arterial/venous spectral tracing of the left ovary. No free fluid. IMPRESSION: 1. Right ovary is not definitely visualized. Left ovary is within normal limits. No evidence of ovarian torsion. 2. Enlarged uterus with a interval increase in size of a 7.4 cm fibroid, previously 5.2 cm. This document has been electronically signed by: Porfirio Hyde MD on 01/21/2025 21:40:19
--- NOTE | 2025-01-21 18:50 | PC.NURSE ---
Pt has thalassemia
--- NOTE | 2025-01-21 19:22 | ED_ITS ---
HPI - General Adult General Chief complaint: Vaginal Bleeding Stated complaint: Vaginal bleeding Time Seen by Provider: 01/21/25 21:00 History of Present Illness ED Provider: Saritha AVENDAÑO narrative: The patient is a 34-year-old female who says that she has a history of thalassemia. She has had problems with vaginal bleeding for a few months and she had an ultrasound last May that showed a large fundal uterine fibroid. She has been referred to gynecology but lost her insurance for awhile and therefore has not yet seen a supplier engineer. She apparently has an appointment later this week. The increased bleeding she has been experiencing has been related to her menses. She says that she does not have bleeding between her menses but that her bleeding during menses has become much heavier. Today was the 5th day of her menses. Her bleeding became much more brisk and she had to change a pad every 15 minutes. She was also having lower abdominal discomfort. She therefore came to the emergency room. She says that she has also has a headache and some nausea. She has gone through 32 pads today. Related Data Previous Rx's ?Medication ?Instructions ?Recorded pantoprazole 40 mg tablet,delayed 40 mg PO DAILY #90 tabs 01/12/24 release tranexamic acid 650 mg tablet 1,300 mg (2 x 650 mg) PO TID 5 01/22/25 days #30 tabs Allergies Allergy/AdvReac Type Severity Reaction Status Date / Time No Known Allergies Allergy Verified 01/21/25 18:47 Review of Systems 2 Review of Systems: Yes all other systems are reviewed and are negative PMFSH Past Medical History Medical History Pre-op evaluation Cervical cancer screening Well woman exam with routine gynecological exam History of uterine anomaly Carpal tunnel syndrome of left wrist Carpal tunnel syndrome, right Paresthesia of right upper extremity Neuropathy Morbid obesity Anemia Surgical History S/P laparoscopic sleeve gastrectomy H/O carpal tunnel repair Tubal ligation status History of surgery on arm Hx of section Hx of appendectomy Family History Family History Mother Heart disease Hypertension Brain tumor Diabetes Thyroid condition Father No problems noted. Daughter No problems noted. Son No problems noted. Son No problems noted. Other Mental health disorder Social History Social History Housing: House Are you a primary manager medicare marketing to a significant other at home: No Do you presently have visiting nurse or other home services: No Alcohol intake: current Alcohol intake frequency: does not drink Comment: counts correct Patient Tobacco Use Status: Never used Tobacco Smoked in Last 30 Days: No e-Cigarette/Vaping Use: Never Used Second Hand Smoke Exposure: No Use of substances other than those prescribed or required for medical reasons: No Advance Directives: No Advance Directives Information Provided: Yes Patient : No service: No Current occupational status: employed 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 Cognitive needs: No Hearing needs: No Vision needs: Yes (glasses) Physical Exam ED Vital Signs: Vital Signs - 24 hr 01/21/25 18:44 01/21/25 21:39 01/21/25 21:50 Temperature 98.1 F 98.6 F Pulse Rate 82 74 58 Respiratory Rate 18 16 Blood Pressure 143/55 H 114/56 L 90/33 L Pulse Oximetry 100 98 Oxygen Delivery Method Room Air Room Air 01/21/25 21:55 01/21/25 21:59 01/21/25 22:04 Temperature 97.2 F 97.5 F Pulse Rate 76 75 76 Respiratory Rate 28 H 20 Blood Pressure 112/43 L 109/43 L 114/38 L Pulse Oximetry 100 Oxygen Delivery Method Room Air 01/21/25 22:09 01/21/25 22:14 01/22/25 00:13 Temperature 98.2 F 97.5 F Pulse Rate 67 69 67 Respiratory Rate 15 14 Blood Pressure 108/54 L 107/55 L 100/50 L Pulse Oximetry 97 95 98 Oxygen Delivery Method Room Air Room Air Room Air 01/22/25 02:01 Temperature 97.5 F Pulse Rate 66 Respiratory Rate 16 Blood Pressure 125/57 L Pulse Oximetry 98 Oxygen Delivery Method Room Air BMI result Body Mass Index 32.1 Const Other: The patient was awake, alert, pleasant, cooperative. She did not seem in acute distress. Orientation/consciousness: patient oriented x3 HENMT Other: Face is symmetrical, mucous membranes moist Eyes General: appearance normal, both eyes and all related structures Neck Neck: Yes normal visual inspection and Yes full ROM Resp Effort & Inspection: normal respiratory effort Auscultation: clear to auscultation bilaterally Cardio Rate: regular rate Rhythm: regular rhythm Heart sounds: S1 normal heart sound present and S2 normal heart sound present GI Other: The abdomen was soft and I did not feel there was any significant tenderness even in the lower abdomen. Other: A pelvic was done after the patient had received a dose of IV tranexamic acid and IV ketorolac. There was some blood externally at the vagina. There was only a little bit of blood in the vaginal vault with insertion of the speculum. The blood was swabbed with colpettes. After removal of all the blood that was present there was no ongoing bleeding from the cervical os. I observed the cervical os for about a minute and there was not even a trickle of blood. I placed my left hand on the the patient's lower abdomen to see if I could provoke any signs of bleeding and I did not provoke any bleeding. After removal of the speculum I performed a bimanual exam that seemed to indicate some generalized pelvic tenderness. Skin Other: Skin was dry and unremarkable Neuro General: patient oriented x3, tone normal, no focal motor deficits and CN's II- XI intact bilaterally Extrem Other: No peripheral edema Course Course Course Narrative: RME: 34-year-old female presents to ED for vaginal bleeding 5 days of bleeding. Patient states he is on a. But changing her pad every 15 minute. Patient states she might have fibroids. Patient is sent here for ultrasound. Labs ordered. Medications Administered Discontinued Medications Generic Name Dose Route Start Last Admin Trade Name Freq PRN Reason Stop Dose Admin Tranexamic Acid 1,000 mg/ 60 mls @ 360 mls/hr 01/21/25 21:19 01/21/25 21:50 Sodium Chloride IV 01/21/25 21:28 Infused ONCE ONE Infusion Acetaminophen 1,000 mg in 100 mls @ 400 mls/hr 01/21/25 23:17 01/21/25 23:42 Ofirmev IV 01/21/25 23:31 Infused ONCE ONE Infusion Ketorolac Tromethamine 15 mg 01/21/25 21:19 01/21/25 21:33 Ketorolac Tromethamine 15 Mg/Ml Vial IVPUSH 01/21/25 21:20 15 mg ONCE ONE Administration Medical Decision Making Medical Decision Making MDM Narrative: The patient is a 34-year-old female who has been experiencing very heavy bleeding with menses over the last few months. Today she is on day 5 of her menses and experienced even heavier than usual bleeding. She also has a known uterine fibroid. Her CBC shows that she has had a slight drop in her hemoglobin. Her hemoglobin today was 8.9. Her last hemoglobin in May of 2024 was 10.1. She was given IV TXA and IV ketorolac in hopes of addressing her vaginal bleeding. She seemed to have a vasovagal episode several minutes after receiving these IV medications but had no signs of an allergic reaction. She was observed and seemed to recover. I subsequently performed a pelvic exam. At the time that I performed the pelvic exam there was a small amount of blood in the vaginal vault but there was no ongoing bleeding from the cervical os. The patient was observed. Repeat hemoglobins seemed to be stable. She was up and about and went to the bathroom and did not report any ongoing significant bleeding. She reported significant improvement in her bleeding. She was supposed to have an outpatient ultrasound later today which may not be necessary since she had an ultrasound here today that showed an increase in the size of her fibroid. She has an appointment on with the Gynecology. She is encouraged to keep this appointment. She was prescribed oral TXA as well. She should return if worse. Lab Data 01/22/25 01:13 01/21/25 19:48 Labs: Lab Results 01/21/25 01/21/25 01/22/25 Range/Units 19:48 21:59 01:13 WBC 9.4 10.4 10.4 (4.8-10.8) X10*3/uL RBC 4.26 4.00 L 4.06 L (4.20-5.50) X10*6/uL Hgb 8.9 L 8.3 L 8.4 L (12.0-16.0) g/dl Hct 28.6 L 26.7 L 27.2 L (37.0-47.0) % MCV 67.1 L 66.8 L 67.0 L (80.0-98.0) fL MCH 20.9 L 20.8 L 20.7 L (27.0-33.0) pg MCHC 31.1 31.1 30.9 L (31.0-35.0) g/dl RDW 16.2 H 16.1 H 16.1 H (11.0-16.0) % Plt Count 487 H D 474 H 447 H (160-400) X10*3/uL MPV 9.7 9.9 10.0 (9.4-12.3) fL Immature Gran % (Auto) 0.2 (0.0-0.4) % Neut % (Auto) 52.3 (45-73) % Lymph % (Auto) 40.6 H (20-40) % Caswell % (Auto) 5.4 (2-11) % Eos % (Auto) 1.0 (0-4) % Baso % (Auto) 0.5 (0-2) % Lymph # (Auto) 3.8 (1.2-4.9) X10*3/uL Caswell # (Auto) 0.5 (0.1-1.2) X10*3/uL Eos # (Auto) 0.1 (0.0-0.4) X10*3/uL Baso # (Auto) 0.1 (0.0-0.2) X10*3/uL Abs Immat Gran (auto) 0.02 (0.00-0.03) X10*3/uL Absolute Neuts (auto) 4.9 (2.0-8.3) x10*3/uL Absolute Nucleated RBC 0.000 0.000 0.000 (0.0-0.012) X10*3/uL Nucleated RBC % (auto) 0.0 0.0 0.0 (0.0-0.2) /100WBC PT 11.3 (10.9-12.4) SEC INR 1.0 (0.9-1.1) Sodium 141 (135-145) mmol/L Potassium 3.9 (3.3-5.1) mmol/L Chloride 108 (96-108) mmol/L Carbon Dioxide 27 (22-29) mmol/L Anion Gap 10 L (12-20) BUN 8 L (9-16) mg/dL Creatinine 0.72 (0.5-1.4) mg/dL Estim Creat Clear Calc 119.2 Estimated GFR > 60 Random Glucose 89 (60-115) mg/dL Calcium 9.1 (8.4-10.2) mg/dL Total Bilirubin 0.3 (0.0-1.0) mg/dL AST 17 (5-31) U/L ALT 13 (0-31) U/L Alkaline Phosphatase 73 (39-117) U/L Total Protein 7.0 (6.5-8.0) g/dL Albumin 4.3 (3.5-5.0) g/dL Beta HCG, Quant < 2 mIU/mL Blood Type O Positive Antibody Screen NEGATIVE Discharge Plan Discharge Clinical Impression: Vaginal bleeding Patient Disposition: Home, Self-Care Additional Instructions: I believe that the degree of bleeding has slowed. I have sent a prescription for a medication, tranexamic acid, which may help keep your bleeding under control. Please take this medication 3 times a day for the next 5 days. Please contact the ultrasound office tomorrow morning to see if the ultrasound you were scheduled to have tomorrow is any different from the ultrasound that you had today. If the ultrasound is the same you may not require an additional ultrasound. Please keep your appointment with the Gynecology office on as scheduled. Return to the emergency room if significantly worse before then. Prescriptions: New tranexamic acid 650 mg tablet 1,300 mg PO TID 5 Days Qty: 30 0RF No Action pantoprazole 40 mg tablet,delayed release (DR/EC) 40 mg PO DAILY Qty: 90 0RF Referrals: [facility] [Provider Group] Stand Alone Forms: Work/School Release Interventions: ED Discharge Assessment Last Done: 01/22/25 02:01 Discharge Date/Time: 01/22/25 02:02 Print Language: Sri [place]ankan
[2025-01-21 19:54] LABS: MANUAL DIFF FLAG NO
[2025-01-21 19:56] LABS: Basophils Absolute Auto 0.1 X10*3/uL (0.0-0.2); Basophils Percent Auto 0.5 % (0-2); Eosinophils Absolute Auto 0.1 X10*3/uL (0.0-0.4); Hematocrit 28.6 % (37.0-47.0); Hemoglobin 8.9 g/dl (12.0-16.0); Imm Gran Abs Auto 0.02 X10*3/uL (0.00-0.03); Imm Gran Pct Auto 0.2 % (0.0-0.4); Lymphocytes Absolute Auto 3.8 X10*3/uL (1.2-4.9); Lymphocytes Percent Auto 40.6 % (20-40); Mean Corpuscular HGB Conc 31.1 g/dl (31.0-35.0); Mean Corpuscular Hemoglobin 20.9 pg (27.0-33.0); Mean Corpuscular Volume 67.1 fL (80.0-98.0); Mean Platelet Volume 9.7 fL (9.4-12.3); Monocytes Absolute Auto 0.5 X10*3/uL (0.1-1.2); Monocytes Percent Auto 5.4 % (2-11); Neutrophils Absolute Auto 4.9 x10*3/uL (2.0-8.3); Neutrophils Percent Auto 52.3 % (45-73); Platelet Count 487 X10*3/uL (160-400); Red Blood Count 4.26 X10*6/uL (4.20-5.50); Red Cell Distribution Width 16.2 % (11.0-16.0); White Blood Count 9.4 X10*3/uL (4.8-10.8)
[2025-01-21 20:03] LABS: Prothrombin Time 11.3 SEC (10.9-12.4)
[2025-01-21 20:08] LABS: Alanine Aminotransferase 13 U/L (0-31); Albumin Level 4.3 g/dL (3.5-5.0); Alkaline Phosphatase 73 U/L (39-117); Anion Gap 10 (12-20); Aspartate Amino Transferase 17 U/L (5-31); Bilirubin Total 0.3 mg/dL (0.0-1.0); Blood Urea Nitrogen 8 mg/dL (9-16); Calcium 9.1 mg/dL (8.4-10.2); Carbon Dioxide 27 mmol/L (22-29); Chloride 108 mmol/L (96-108); Creatinine Clr Calc Pharmacy 119.2; Estimated Glomerular Filt Rate > 60; Glucose Random 89 mg/dL (60-115); Potassium 3.9 mmol/L (3.3-5.1); Sodium 141 mmol/L (135-145)
[2025-01-21 20:15] LABS: HCG Quantitative < 2 mIU/mL
[2025-01-21] MEDS: Tranexamic Acid 1,000 MG in 0.9 % Sodium Chloride 50 ML 360 MG IV (21:32)
[2025-01-21] MEDS: Ketorolac Tromethamine 15 MG/ML VIAL IVPUSH (21:33)
--- NOTE | 2025-01-21 21:59 | PC.NURSE ---
daughter called RN into room, stated pap
--- NOTE | 2025-01-21 21:59 | PC.NURSE ---
patient daughter called RN into room. stated patient was feeling dizzy and hot. patient speaking slowing then noted to not be responding to staff. pulse low i the 30s. patient appeared pale. provider called to bedside. patient placed in trandelenburg an legs lifted. patient awoke after about 3 minute. continued to fell dizzy and hot. feels her muscles are stiff. patient had TXA infusing at the time of incident, had about 1 minutes left of med. patient awake and alert now. fluids infusing. second IV line inserted. repeat cbc as well as type and screen ordered and drawn.
[2025-01-21 22:05] LABS: Hematocrit 26.7 % (37.0-47.0); Hemoglobin 8.3 g/dl (12.0-16.0); Mean Corpuscular HGB Conc 31.1 g/dl (31.0-35.0); Mean Corpuscular Hemoglobin 20.8 pg (27.0-33.0); Mean Corpuscular Volume 66.8 fL (80.0-98.0); Mean Platelet Volume 9.9 fL (9.4-12.3); Platelet Count 474 X10*3/uL (160-400); Red Cell Distribution Width 16.1 % (11.0-16.0); White Blood Count 10.4 X10*3/uL (4.8-10.8)
--- NOTE | 2025-01-21 22:21 | MHC.EDTECH ---
Pt daughter called ,this pct in room ,Patient stated she felt dizzy and nauseous ,This pct called ARAM Armstrong in Pt room ,Patient became Pale and then Passed out ,Provider was called into Patient room ,ekg taken and was read by Provider ,Patient was hooked up to personnel monitor ,vitals was check q 5 mins ,Patient woke up ,and was talking ,Type and Screen drawn also cbc and was sent to lab ,All safety measure was Put in Place , Pt was told not to get oob with out help .warm blanket given ,Patient resting quietly in bed ,Patient Daughter continue to be at bedside .
[2025-01-21] MEDS: Acetaminophen 1,000 MG/100 ML PIGGYBACK 400 MG IV (23:27)
[2025-01-22 00:13] VITALS: BP 100/50; PULSE 67; RESP 14; TEMP 36.4; O2SAT 98
[2025-01-22 01:17] LABS: Hematocrit 27.2 % (37.0-47.0); Hemoglobin 8.4 g/dl (12.0-16.0); Mean Corpuscular HGB Conc 30.9 g/dl (31.0-35.0); Mean Corpuscular Hemoglobin 20.7 pg (27.0-33.0); Platelet Count 447 X10*3/uL (160-400); Red Blood Count 4.06 X10*6/uL (4.20-5.50); Red Cell Distribution Width 16.1 % (11.0-16.0); White Blood Count 10.4 X10*3/uL (4.8-10.8)
[2025-01-22 02:01] VITALS: BP 125/57; PULSE 66; RESP 16; TEMP 36.4; O2SAT 98
== END 2025-01-22 02:02 | disposition home or self-care (01) ==
PROVIDERS: Physician Assistant; Emergency Provider Emergency Medicine
DX: R55 Syncope and collapse (principal); D25.9 Leiomyoma of uterus, unspecified; N93.9 Abnormal uterine and vaginal bleeding, unspecified; R10.30 Lower abdominal pain, unspecified; R10.2 Pelvic and perineal pain; Z79.899 Other long term (current) drug therapy; Z98.84 Bariatric surgery status
CPT/HCPCS: 36415; 76830; 76856; 80053; 84702; 85025; 85027; 85610; 86850; 86900; 86901; 93005; 93975; 96365; 96375; 99285; J0131; J1885

== ENCOUNTER → 2025-01-21 20:47 | Outpatient (BNV) | payer OTHER, SELFPAY | PROVIDERS: Emergency Provider Emergency Medicine; Visit Provider Student in an Organized Health Care Education/Training Program | DX: N85.2 Hypertrophy of uterus (principal); D25.9 Leiomyoma of uterus, unspecified | CPT/HCPCS: 76830; 76856 ==

== ENCOUNTER → 2025-01-21 21:52 | Outpatient (BNV) | payer OTHER, SELFPAY | PROVIDERS: Emergency Provider Emergency Medicine; Visit Provider Internal Medicine Cardiovascular Disease | DX: R55 Syncope and collapse (principal) | CPT/HCPCS: 93010 ==

== ENCOUNTER 2025-01-23 11:59 | Outpatient (AMB) | payer OTHER, SELFPAY ==
--- NOTE | 2025-01-23 12:02 | MHC.OFFVIS ---
Vital Signs 01/23/25 12:04 Height 5 ft 5 in Weight 209 lb BMI 34.8 Intake Visit Reasons: HCG ,cbc/ Ultrasound results Kitchen Stewardess Required: No Information Interpreted: non-clinical & clinical Accompanied by: Self / Same As Patient Allergies No Known Allergies Allergy (Verified 01/23/25 12:05) Is last menstrual period known: Yes Last menstrual period: 01/16/25 HPI Comments Details: Presenting for follow-up after ER visit on 01/22/2025. The patient went to the emergency room before vaginal bleeding. The following workup was done H&H 8.4/27.2 HCG negative Pelvic ultrasound showed the following: Anteverted uterus is 11.3 cm length. Interval increase in size of the fibroid currently measuring 7.4 x 6.6 x 6.5 cm, previously 5.2 x 3.8 x 4.8 cm. No endometrial lesion, 7 mm thickness. Right ovary is not visualized. Left ovary 3.0 x 2.1 x 2.3 cm. Normal color Doppler with arterial/venous spectral tracing of the left ovary. No free fluid. Last co testing in 09/06 was negative The patient was started on tranexamic acid 1300 mg p.o. t.i.d. for 5 days to reduce the flow and her bleeding has reduced significant The patient has tubal ligation is not interested in future fertility [facility] Medical History (Updated 01/23/25 @ 12:24 by Jonathan Mccauley MD) Thalassemia Pre-op evaluation Cervical cancer screening Well woman exam with routine gynecological exam History of uterine anomaly Carpal tunnel syndrome of left wrist Carpal tunnel syndrome, right Paresthesia of right upper extremity Neuropathy Morbid obesity Anemia Surgical History Hx of gastric bypass S/P laparoscopic sleeve gastrectomy H/O carpal tunnel repair Tubal ligation status History of surgery on arm Hx of section Hx of appendectomy Family History Mother Heart disease Hypertension Brain tumor Diabetes Thyroid condition Father No problems noted. Daughter No problems noted. Son No problems noted. Son No problems noted. 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 Cognitive needs: No Hearing needs: No Vision needs: Yes (glasses) Female Reproductive History Menstrual Age of Menarche: 13 Duration of menses: 8-10 days Date of last menstrual period: 01/16/25 control method: permanent sterilization Review of Systems Const All systems reviewed & are unremarkable except as noted in HPI and below Physical Exam Vital Signs: BMI result Body Mass Index 34.8 General: Yes no CVA tenderness External Female Exam: normal external appearance and normal appearance of the urethra Speculum Exam - Vagina: normal appearance of the vagina, normal palpation, no lesions and no masses Speculum Exam - Cervix: normal appearance of the cervix, normal palpation, no lesions, no masses, nontender and Other cervical findings present (No active bleeding, minimal blood per vagina) Bimanual exam- vagina & uterus: normal bimanual exam, normal palpation, uterine size normal, normal palpation, uterine shape normal, No Cervical tenderness present and non-tender Bimanual Exam- Adnexa, other: normal adnexae Back/Spine/Pelvis Back: no CVA tenderness Office Procedures Endometrial Biopsy Details: The patient was counseled regarding the indication and benefits of endometrial sampling to rule out endometrial pathology including not limited to endometrial hyperplasia or endometrial cancer and others; The alternatives (Either do nothing vs. hysteroscopy D&C) & the risks were discussed with the patient including but not limited: pain, uterine perforation, bleeding, infection, possible injury to bladder, bowel, ureter, possible need for blood transfusion with all its possible risks. The patient verbalized understanding all questions answered and signed consent. Urine test done in the office was negative The patient was placed into the dorsal lithotomy position; a speculum was inserted in the vagina. Using aseptic technique for the procedure, the cervix was cleansed with Betadine. The anterior lip of the cervix was grasped with a single tooth tenaculum. The uterus was sounded to 7 cm with a 4 mm Pipelle was used. Tissues samples were obtained and placed in formalin, in a patient labeled container and sent to the pathology department. At the end of the procedure, there was minimal bleeding noted The patient tolerated the procedure well and was discharged in good condition with the following instructions: Nothing in the vagina until the bleeding stops. No sex until the bleeding stops, to call if any of the following occurs: fever (>100.4), flu-like symptoms, abdominal pain, heavy bleeding, four smelling vaginal discharge. The patient was instructed to schedule a Follow up appointment in 2 weeks to discuss pathology results of the biopsy and treatment options. This note was generated with a voice recognition program. Some errors may have been overlooked during the review of this note. Sometimes these errors may affect the content or meaning of a given sentence. [id number] Biopsy Assessment & Plan Assessment & Plan (1) Abnormal uterine bleeding (AUB): Comment: anemia h/o thalassemia Code(s): N93.9 - Abnormal uterine and vaginal bleeding, unspecified Category: Medical Plan: Repeat CBC stat ordered. EMB done, see procedure note Will discontinue TXA started the patient on Provera 10 mg p.o. q.d. , prescription sent for 90 days Instructions given to patient to call or go to emergency room in case of recurrence of her vaginal bleeding All questions answered, the patient verbalized understanding (2) Uterine fibroid: Comment: noted on ct scan and u/s at ED- to be seen at [facility] Code(s): D25.9 - Leiomyoma of uterus, unspecified Category: Medical Plan: Discussed with the patient the findings on pelvic ultrasound & the risk of myosarcoma; in addition reviewed with the patient that malignancy and pre malignancy cannot be ruled out without hysterectomy for pathological evaluation ; furthermore, explained to the patient the limitation of pelvic ultrasound and endometrial biopsy in the setting. Discussed with the patient the typical symptoms that are caused by myomas including but not limited to pelvic pain, pressure symptoms, abnormal uterine bleeding. In addition discussed with the patient options of treatment for myomas including: Serial ultrasounds periodically to follow-up on the size of the myoma while targeting the treatment against fibroids related symptoms ( control pills, Mirena IUD, progesterone treatment, GnRH agonist/antagonist, uterine artery embolization or endometrial ablation) versus surgical treatment including hysterectomy and or myomectomy. All pros and cons, risks and benefits of all options were discussed with the patient. The patient understands that delay in surgical treatment in case of myosarcoma can affect her prognosis, after further discussion, the patient decided to proceed with definitive surgery, hysterectomy. Discussed with the patient the different types of hysterectomies including, vaginal, laparoscopic assisted vaginal, robotic assisted laparoscopic,& abdominal with BSO. All pros, cons, r/b of each approach were discussed the patient including evidence that morbidity is less and recovery is shorter with minimally invasive approaches to hysterectomy. Discussed with the patient the lack of availability of the robot Peer[employer] robot and/or minimally invasive public records officer specialist at [facility]. Will refer to [facility] minimally invasive treadle cut off saw operator surgery. Instructed the patient to call our office back in case a referral appointment is not scheduled, missed or canceled so that we will assist on rescheduling another appointment, the patient verbalized understanding agreed with the plan. Orders: Orders AMB Endometrial Biopsy Today N93.9 - Abnormal uterine and vaginal bleeding, unspecified Medications: New medroxyprogesterone (Provera) start Provera 1 tablet daily from day 15-24 cyclically every months, day 1 being 1st day of menses 10 mg PO DAILY 90 days 90 tabs 0RF Discontinued tranexamic acid Discontinued Reason: Doctor's Order 1,300 mg (2 x 650 mg) PO TID 5 days 30 tabs 0RF Coding Level of Care Code Est Pt Level 3 (61371) Diagnoses Abnormal uterine bleeding (AUB) N93.9 Uterine fibroid D25.9 CPT Codes Endometrial Biopsy - CPT: 30496-[id number] Biopsy ([id number])
[2025-01-23 12:04] VITALS: BMI 34.8
== END 2025-01-23 12:35 | disposition home or self-care (01) ==
LOC: HO.HWS 11:59
PROVIDERS: Visit Provider Obstetrics & Gynecology
DX: N93.9 Abnormal uterine and vaginal bleeding, unspecified (principal); D25.9 Leiomyoma of uterus, unspecified; Z32.02 Encounter for pregnancy test, result negative
CPT/HCPCS: 58100; 99213

== ENCOUNTER 2025-01-23 11:59 | Outpatient (REF) | payer OTHER, SELFPAY ==
[2025-01-23 13:02] LABS: Hematocrit 27.5 % (37.0-47.0); Hemoglobin 8.5 g/dl (12.0-16.0); Mean Corpuscular HGB Conc 30.9 g/dl (31.0-35.0); Mean Corpuscular Hemoglobin 20.8 pg (27.0-33.0); Mean Corpuscular Volume 67.2 fL (80.0-98.0); Platelet Count 463 X10*3/uL (160-400); Red Blood Count 4.09 X10*6/uL (4.20-5.50); Red Cell Distribution Width 16.1 % (11.0-16.0); White Blood Count 7.3 X10*3/uL (4.8-10.8)
[2025-01-23 13:42] LABS: HCG Quantitative < 2 mIU/mL; TSH reflex Free T4 0.73 uIU/mL (0.32-4.0)
== END 2025-01-23 12:00 | disposition home or self-care (01) ==
LOC: HO.LAB 11:59
PROVIDERS: Visit Provider Obstetrics & Gynecology
DX: N93.9 Abnormal uterine and vaginal bleeding, unspecified (principal); D25.9 Leiomyoma of uterus, unspecified
CPT/HCPCS: 36415; 58100; 81025; 84443; 84702; 85027; 99212

== ENCOUNTER 2025-01-23 12:59 | Outpatient (REF) | payer OTHER, SELFPAY | END 2025-01-23 13:00 | disposition home or self-care (01) | LOC: HO.LNP 12:59 | PROVIDERS: Visit Provider Obstetrics & Gynecology | DX: N93.9 Abnormal uterine and vaginal bleeding, unspecified (principal) | CPT/HCPCS: 88305 ==

== ENCOUNTER 2025-02-04 07:50 | Outpatient (AMB) | payer OTHER, SELFPAY ==
--- OUTSIDE RECORDS SUMMARY | 2015-01-27 20:00 | XMS_ITS | Continuity of Care Document ---
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 [id number], [facility] [address], [place], [place], [id number], [place]. tel:[phone] Referring Provider: TIRSO Chan, [address] [facility] [place] [facility] [address], [place], [address]. tel:[phone] Family History Family Member Type Diagnosis Age At Onset No Information Payers Payer name Insurance type Covered libertarian ID Authoriza tion(s) [facility] [id number] Social History Type Description Quantity Date Captured Comments Sex Female Smoking Status No Information Chief Complaint And Reason For Visit No Information History Of Present Illness Encounter Date Complaint History Of Prese nt Illness No Information Instructions Date Instruction Additional Infor mation No Information Assessments Type Assessment Date No Information
--- NOTE | 2025-02-04 07:50 | MHC.OFFVIS ---
Intake Visit Reasons: EMB results Allergies No Known Allergies Allergy (Verified 01/23/25 12:05) HPI Comments Details: The patient is presenting for follow-up to discuss the results of her abnormal uterine bleeding workup and options of treatment. On provera 10 mg po qd and bleeding resolved The following workup was done.: H&H= 8.5/27.5 TSH, hCG, GC and chlamydia were negative. Endometrial biopsy pathology showed the following: Endometrium, biopsy: Benign endometrium with secretory glands and extensive breakdown (lytic endometrium), and benign endocervical glandular and squamous epithelium; no atypia or carcinoma. Co testing was done in 09/06 was negative. Pelvic ultrasound showed the following: IMPRESSION: 1. Right ovary is not definitely visualized. Left ovary is within normal limits. No evidence of ovarian torsion. 2. Enlarged uterus with a interval increase in size of a 7.4 cm fibroid, previously 5.2 cm. [facility] Medical History Thalassemia Pre-op evaluation Cervical cancer screening Well woman exam with routine gynecological exam History of uterine anomaly Carpal tunnel syndrome of left wrist Carpal tunnel syndrome, right Paresthesia of right upper extremity Neuropathy Morbid obesity Anemia Surgical History Hx of gastric bypass S/P laparoscopic sleeve gastrectomy H/O carpal tunnel repair Tubal ligation status History of surgery on arm Hx of section Hx of appendectomy Family History Mother Heart disease Hypertension Brain tumor Diabetes Thyroid condition Father No problems noted. Daughter No problems noted. Son No problems noted. Son No problems noted. 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 Cognitive needs: No Hearing needs: No Vision needs: Yes (glasses) Female Reproductive History Menstrual Age of Menarche: 13 Review of Systems Const All systems reviewed & are unremarkable except as noted in HPI and below Reports as per HPI and Reports no additional complaints GI Reports no additional complaints Reports no additional complaints Telehealth Telehealth Telehealth Platform: Telephone Location of provider rendering services: practice address Location of patient: address on file Patient Identification confirmed using: Name, : Yes Telehealth method: video Patient verbally consented to treatment: Yes Patient verbally consented to billing insurance company: Yes Patient informed of any privacy concerns related to visit: Yes Minutes spent on Phone/Video with Pt.: 6 Assessment & Plan Assessment & Plan (1) Abnormal uterine bleeding (AUB): Comment: anemia h/o thalassemia 2 myomas Code(s): N93.9 - Abnormal uterine and vaginal bleeding, unspecified Category: Medical Plan: Instructions given the patient to stay on Provera 10 mg p.o. q.d. and to call or go to emergency room in case of heavy vaginal bleeding Discussed with the patient the workup including CBC, TSH, hCG, GC/CT, ultrasound, EMB and co testing. The patient was counseled about different options of treatment and elected to proceed with a hysterectomy, referral sent to [facility] minimally invasive surgery. The patient has an appointment for minimally invasive asbestos brake lining finisher helper surgery 03/09/[address] Galarza at [facility] minimally invasive asbestos brake lining finisher helper and is aware of it. I spent a total of 20 minutes reviewing the chart, talking to the patient via video and documenting in the medical record. Coding Level of Care Code Tele Est Pt Level 3 (24455) Diagnoses Abnormal uterine bleeding (AUB) N93.9
== END 2025-02-04 08:18 | disposition home or self-care (01) ==
LOC: HO.HWS 07:50
PROVIDERS: Visit Provider Obstetrics & Gynecology
DX: N93.9 Abnormal uterine and vaginal bleeding, unspecified (principal)
CPT/HCPCS: 98004

== ENCOUNTER 2025-03-05 17:22 | Emergency (ER) | payer OTHER, SELFPAY ==
--- NOTE | 2025-03-05 | ECG_ITS ---
Test Reason : CP Blood Pressure : */* mmHG Vent. Rate : 87 BPM Atrial Rate : * BPM P-R Int : * ms QRS Dur : 82 ms QT Int : 376 ms P-R-T Axes : * 45 10 degrees QTcB Int : 452 ms Normal sinus rhythm Normal ECG When compared with ECG of 21-Jan-2025 21:52, No significant changes seen Referred By: Generic ED Physician Electronically Signed By: Harjeet Murphy
--- NOTE | ~2025-03-05 | CT_ITS ---
CLINICAL HISTORY: r o PE or Dissection; CP; Back Pain; Pleurisy CT angiography chest with contrast. 3D Postprocessing. Comparison: None provided Findings: The heart is normal size. RV/LV ratio is normal. The thoracic aorta is normal caliber. No acute pulmonary embolus. The visualized thyroid and mediastinum are unremarkable. The lungs are clear. The upper abdomen is unremarkable. The bones are intact. IMPRESSION: 1. No pulmonary embolus. This document has been electronically signed by: Migel Caldwell MD on 03/05/2025 20:27:12
--- NOTE | ~2025-03-05 | XR_ITS ---
CLINICAL HISTORY: chest pain 2 view chest x-ray Comparison: CR/WA/SR - XR CHEST 2 VIEWS - 01/11/23 08:48 EDT Findings: The lungs are clear. Normal size heart. No acute fracture. IMPRESSION: 1. No acute findings. This document has been electronically signed by: Migel Caldwell MD on 03/05/2025 17:54:52
--- NOTE | 2025-03-05 17:29 | ED_ITS ---
HPI - General Adult General Chief complaint: Chest Pain Stated complaint: chest pain, difficulty breathing Time Seen by Provider: 03/05/25 19:21 Source: patient Mode of arrival: ambulatory Limitations: no limitations History of Present Illness ED Provider: Bishnu ERNANDEZ HPI narrative: The patient is a 35-year-old female with history of thalassemia, NIA, obesity, depression, anxiety, fibromyalgia, GERD, liver steatosis, and gastric sleeve presenting to the ED for evaluation of sudden onset severe chest pain with associated pleurisy that radiates into the back with a reported pulling sensation in her back. The patient reports symptoms began at approximately 16:30 shortly after finishing work, denies any heavy lifting or significant exertion at work. The patient reports she urinates today without hematuria or dysuria, reports pain is directly substernal, denies laterality. The patient reports associated nausea without associated vomiting, denies associated recent sick contacts, fever/chills, abdominal pain. Related Data Previous Rx's ?Medication ?Instructions ?Recorded pantoprazole 40 mg tablet,delayed 40 mg PO DAILY #90 t abs 01/12/24 release medroxyprogesterone 10 mg tablet 10 mg PO DAILY 90 day s #90 tabs 01/23/25 (Provera) Allergies Allergy/AdvReac Type Severity Reaction Status Date / Time No Known Allergies Allergy Verified 03/05/25 17:32 PMFSH Past Medical History Medical History Thalassemia Pre-op evaluation Cervical cancer screening Well woman exam with routine gynecological exam History of uterine anomaly Carpal tunnel syndrome of left wrist Carpal tunnel syndrome, right Paresthesia of right upper extremity Neuropathy Morbid obesity Anemia Surgical History Hx of gastric bypass S/P laparoscopic sleeve gastrectomy H/O carpal tunnel repair Tubal ligation status History of surgery on arm Hx of section Hx of appendectomy Family History Family History Mother Heart disease Hypertension Brain tumor Diabetes Thyroid condition Father No problems noted. Daughter No problems noted. Son No problems noted. Son No problems noted. Sister Ovarian cancer Other Mental health disorder Social History Social History Housing: House Are you a primary medicare contact specialist to a significant other at home: No Do you presently have visiting nurse or other home services: No Alcohol intake: current Alcohol intake frequency: does not drink Comment: counts correct Patient Tobacco Use Status: Never used Tobacco e-Cigarette/Vaping Use: Never Used Second Hand Smoke Exposure: No Advance Directives: No Advance Directives Information Provided: No Do you have a plan to hurt others: No Plan service: No Current occupational status: employed 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 Cognitive needs: No Hearing needs: No Vision needs: Yes (glasses) Physical Exam ED Vital Signs: Vital Signs - 24 hr 03/05/25 17:30 03/05/25 19:16 03/05/25 19:35 Temperature 97.9 F 97.8 F Pulse Rate 83 69 Respiratory Rate 20 16 19 Blood Pressure 112/47 L 135/63 Pulse Oximetry 100 100 Oxygen Delivery Method Room Air Room Air 03/05/25 21:34 03/05/25 23:49 03/06/25 01:41 Temperature 98.7 F 98.2 F 97.9 F Pulse Rate 75 70 72 Respiratory Rate 18 15 16 Blood Pressure 111/48 L 111/52 L 117/54 L Pulse Oximetry 99 100 99 Oxygen Delivery Method Room Air Room Air Room Air 03/06/25 01:41 Temperature 97.9 F Pulse Rate 72 Respiratory Rate 16 Blood Pressure 117/54 L Pulse Oximetry 99 Oxygen Delivery Method Room Air BMI result Body Mass Index 38.4 Course Course Course Narrative: This is a rapid medical exam performed by Kelin Mays NP: Additional HPI, ROS, PE not included below will be deferred to primary provider. Patient is a 35-year-old female with history of GERD, fibromyalgia, NIA, ADHD, obesity presenting with complaint of chest pain and dyspnea which began 1 hr prior to arrival. Also complains of nausea. Plan: EKG, labs, CXR Medications Administered Discontinued Medications Generic Name Dose Route Start Last Admin Trade Name Freq PRN Reason Stop Dose Admin Al Hydroxide/Mg Hydroxide 30 ml 03/05/25 21:02 03/05/25 21:08 Magnesium Hydrox/Alum Hydrox 30 Ml Oral.Susp PO 03/05/25 21:03 30 ml ONCE ONE Administration Famotidine 20 mg 03/05/25 21:02 03/05/25 21:08 Famotidine 20 Mg Tablet PO 03/05/25 21:03 20 mg ONCE ONE Administration Sodium Chloride 1,000 mls @ 999 mls/hr 03/05/25 19:30 03/05/25 23:48 Ns IV 03/05/25 20:30 Infused .Q1H1M ZHANG Infusion Iohexol 100 ml 03/05/25 20:03 03/05/25 20:03 Iohexol 350 Mg/Ml 100 Ml Infus..Btl IV 03/05/25 20:04 80 ml ONCE ONE Administration Ketorolac Tromethamine 15 mg 03/05/25 21:02 03/05/25 21:09 Ketorolac Tromethamine 15 Mg/Ml Vial IVPUSH 03/05/25 21:03 15 mg ONCE ONE Administration Lidocaine HCl 15 ml 03/05/25 21:02 03/05/25 21:08 Lidocaine Hcl Viscous 2 % 15 Ml Solution PO 03/05/25 21:03 15 ml ONCE ONE Administration Morphine Sulfate 4 mg 03/05/25 19:28 03/05/25 19:35 Morphine Sulfate 4 Mg/Ml Cartridge IVPUSH 03/05/25 19:29 4 mg ONCE ONE Administration Protocol Ondansetron HCl 4 mg 03/05/25 19:28 03/05/25 19:35 Ondansetron Hcl 4 Mg/2 Ml Vial IVPUSH 03/05/25 19:29 4 mg ONCE ONE Administration Medical Decision Making Medical Decision Making MDM Narrative: 7:36 PM 03/05/2025 (Henrik ERNANDEZ): The patient is a 35-year-old female with history of thalassemia, NIA, obesity, depression, anxiety, fibromyalgia, GERD, liver steatosis, and gastric sleeve presenting to the ED for evaluation of sudden onset severe chest pain with associated pleurisy that radiates into the back with a reported pulling sensation in her back. The patient reports symptoms began at approximately 16:30 shortly after finishing work, denies any heavy lifting or significant exertion at work. The patient reports she urinates today without hematuria or dysuria, reports pain is directly substernal, denies laterality. The patient reports associated nausea without associated vomiting, denies associated recent sick contacts, fever/chills, abdominal pain. The patient's exam reveals clear lung sounds, no murmur, abdominal exam is benign. The patient's vital signs during exam reveal heart rate of 74, normal respiratory rate, no hypoxia, hypertension, or hypotension, however patient is witnessed writhing in pain, clutching her chest and reporting a pulling pressure of her back between her scapula, also reports pain is increased with deep respiration. The patient's laboratory evaluation shows negative troponin, anemia consistent with thalassemia is unchanged from baseline, elevated platelet count noted at 584, patient has history of chronically elevated platelets, however this is significant increased since January 23 of this year. CMP shows no significant electrolyte abnormality or ONUR. LFTs normal. Viral swab negative. Chest x-ray shows no cardiopulmonary process. With the exception of thalassemia the patient has no risk factors for dissection, however given the nature of the patient's complaints we will obtain CTA chest to rule out dissection and/or PE. Patient will be treated with morphine, Zofran, and IV fluid hydration. We will reassess following pain control and CTA results. Of note the patient's EKG is interpreted as a junctional rhythm, however there is significant artifact, this provider's interpretation shows sinus rhythm with artifact, no ischemia, we will repeat after pain control to faciliate better baseline. 8:34 PM 03/05/2025 (Henrik ERNANDEZ): Patient's CT has resulted and shows no pulmonary embolism or other acute pathology. Patient's repeat EKG shows improved artifact, normal sinus rhythm. Patient appears more comfortable following morphine. Etiology unclear, will reassess. 9:04 PM 03/05/2025 (Henrik ERNANDEZ): Upon reassessment patient reporting increasing pain, patient's repeat troponin is negative. Patient will be treated with Toradol, as well as a GI cocktail and reassess. 1:26 AM 03/06/2025 (Henrik ERNANDEZ): The patient experienced significant pain improvement following anti-inflammatories and GI cocktail. Patient has been observed and has had no recurrent increase in symptoms following improvement with Toradol, vital signs remained stable. At this time there is no evidence of an acute emergent process requiring additional observation or admission. Patient will be discharged to follow up with PCP for continued investigation of the source of her symptoms. Admission/Observation Consideration of admission/observation: Escalation of care including admission/observation considered Lab Data MDM Lab Attestation statement: I reviewed the patient's lab results. 03/05/25 17:42 03/05/25 17:42 Labs: Lab Results 03/05/25 03/05/25 Range/Units 17:42 20:36 WBC 11.3 H (4.8-10.8) X10*3/uL RBC 4.29 (4.20-5.50) X10*6/uL Hgb 8.4 L (12.0-16.0) g/dl Hct 28.1 L (37.0-47.0) % MCV 65.5 L (80.0-98.0) fL MCH 19.6 L (27.0-33.0) pg MCHC 29.9 L (31.0-35.0) g/dl RDW 16.5 H (11.0-16.0) % Plt Count 584 H D (160-400) X10*3/uL MPV 9.7 (9.4-12.3) fL Immature Gran % (Auto) 0.3 (0.0-0.4) % Neut % (Auto) 53.2 (45-73) % Lymph % (Auto) 38.5 (20-40) % [place] % (Auto) 6.8 (2-11) % Eos % (Auto) 0.9 (0-4) % Baso % (Auto) 0.3 (0-2) % Lymph # (Auto) 4.3 (1.2-4.9) X10*3/uL [place] # (Auto) 0.8 (0.1-1.2) X10*3/uL Eos # (Auto) 0.1 (0.0-0.4) X10*3/uL Baso # (Auto) 0.0 (0.0-0.2) X10*3/uL Abs Immat Gran (auto) 0.03 (0.00-0.03) X10*3/uL Absolute Neuts (auto) 6.0 (2.0-8.3) x10*3/uL Absolute Nucleated RBC 0.000 (0.0-0.012) X10*3/uL Nucleated RBC % (auto) 0.0 (0.0-0.2) /100WBC PT 10.2 L (10.9-12.4) SEC INR 0.9 (0.9-1.1) Sodium 142 (135-145) mmol/L Potassium 3.5 (3.3-5.1) mmol/L Chloride 112 H (96-108) mmol/L Carbon Dioxide 22 (22-29) mmol/L Anion Gap 12 (12-20) BUN 7 L (9-16) mg/dL Creatinine 0.65 (0.5-1.4) mg/dL Estim Creat Clear Calc 118.8 Estimated GFR > 60 Random Glucose 79 (60-115) mg/dL Calcium 9.1 (8.4-10.2) mg/dL Total Bilirubin 0.2 (0.0-1.0) mg/dL AST 27 (5-31) U/L ALT 21 (0-31) U/L Alkaline Phosphatase 75 (39-117) U/L Troponin I High Sens < 2.7 < 2.7 (<3.5-17.0) ng/L Total Protein 7.4 (6.5-8.0) g/dL Albumin 4.7 (3.5-5.0) g/dL Beta HCG, Quant < 2 mIU/mL Influenza Type A (PCR) NEGATIVE (Negative) Influenza Type B (PCR) NEGATIVE (Negative) RSV RNA Qual (PCR) NEGATIVE (Negative) SARS-CoV-2 RNA (RT-PCR) NEGATIVE (Negative) Independent Interpretation I performed an independent interpretation of an: EKG (EKG shows significant artifact, interpretation reads accelerated junctional rhythm however this provider's interpretation shows likely sinus rhythm with a rate of 87, no evidence of acute ischemia, no ST elevation, no ectopy. QTC 452. ) Interpretation: Repeat EKG at 20:21 hours shows no artifact, demonstrates sinus rhythm, no evidence of acute ischemia, no ST elevation, no ectopy. QTC 456. Radiology Impression Discussion of test interpretation with radiology: I have reviewed the radiologist's reading. Radiologist Impression: CT angiography chest with contrast. 3D Postprocessing. Comparison: None provided Findings: The heart is normal size. RV/LV ratio is normal. The thoracic aorta is normal caliber. No acute pulmonary embolus. The visualized thyroid and mediastinum are unremarkable. The lungs are clear. The upper abdomen is unremarkable. The bones are intact. IMPRESSION: 1. No pulmonary embolus. This document has been electronically signed by: Migel Caldwell MD on 03/05/2025 20:27:12 CLINICAL HISTORY: chest pain 2 view chest x-ray Comparison: CR/VA/SR - XR CHEST 2 VIEWS - 01/11/23 08:48 EDT Findings: The lungs are clear. Normal size heart. No acute fracture. IMPRESSION: 1. No acute findings. This document has been electronically signed by: Migel Caldwell MD on 03/05/2025 17:54:52 Discharge Plan Discharge Clinical Impression: Atypical chest pain Patient Disposition: Home, Self-Care Instructions: Chest Pain (ED), Thoracic Pain (ED), Back Pain (ED) Additional Instructions: Thank you for choosing [facility] Emergency Department for your care today. Thankfully your EKG, chest x-ray, chest CT, laboratory evaluation, viral swab, and exam today are all reassuring. There is no evidence of any acute cardiac, pulmonary, aortic, coagulopathic (blood clot), metabolic, infectious, viral, or other acute process causing your symptoms. At this time there is no evidence of an acute process requiring admission to the hospital or continued ED observation, and it is safe to discharge you home. You may take alternating (staggered) doses of ibuprofen 600mg and Tylenol 1000mg every 4 hours as needed for any additional pain. Please follow up with your primary care physician for re-evaluation, additional management of your symptoms, and continued preventative care. If you do not have a primary care physician, please call the [facility] at [phone] to establish a new primary care physician. While waiting to establish your new primary care physician, you can call our Walk-in [facility] at [phone] for non-emergency needs. Please return to the emergency department if you develop a severe or sudden change in your symptoms, a fever over 100.4 that does not improve with Tylenol or Ibuprofen, recurrent vomiting, or any other new or worsening symptoms or concerns. Prescriptions: No Action medroxyprogesterone [Provera] 10 mg tablet 10 mg PO DAILY 90 Days Qty: 90 0RF Rx Instructions: start Provera 1 tablet daily from day 15-24 cyclically every months, day 1 being 1st day of menses pantoprazole 40 mg tablet,delayed release (DR/EC) 40 mg PO DAILY Qty: 90 0RF Referrals: Physician,None [Primary Care Provider, Medical] Clinical Impression: Atypical chest pain Interventions: ED Discharge Assessment Last Done: 03/06/25 01:41 Discharge Date/Time: 03/06/25 01:42 Print Language: Bangladeshi
[2025-03-05 17:30] VITALS: BP 112/47; PULSE 83; RESP 20; TEMP 36.6; O2SAT 100; BMI 38.4
[2025-03-05 17:48] LABS: MANUAL DIFF FLAG NO
[2025-03-05 17:57] LABS: Hematocrit 28.1 % (37.0-47.0); Hemoglobin 8.4 g/dl (12.0-16.0); Imm Gran Abs Auto 0.03 X10*3/uL (0.00-0.03); Imm Gran Pct Auto 0.3 % (0.0-0.4); Lymphocytes Absolute Auto 4.3 X10*3/uL (1.2-4.9); Mean Corpuscular HGB Conc 29.9 g/dl (31.0-35.0); Mean Corpuscular Hemoglobin 19.6 pg (27.0-33.0); Mean Corpuscular Volume 65.5 fL (80.0-98.0); NRBC Abs Auto 0.000 X10*3/uL (0.0-0.012); NRBC Pct Auto 0.0 /100WBC (0.0-0.2); Platelet Count 584 X10*3/uL (160-400); Red Blood Count 4.29 X10*6/uL (4.20-5.50); White Blood Count 11.3 X10*3/uL (4.8-10.8)
[2025-03-05 18:01] LABS: INTERNATIONAL NORM RATIO 0.9 (0.9-1.1); Prothrombin Time 10.2 SEC (10.9-12.4)
[2025-03-05 18:11] LABS: Alanine Aminotransferase 21 U/L (0-31); Albumin Level 4.7 g/dL (3.5-5.0); Alkaline Phosphatase 75 U/L (39-117); Anion Gap 12 (12-20); Aspartate Amino Transferase 27 U/L (5-31); Blood Urea Nitrogen 7 mg/dL (9-16); Calcium 9.1 mg/dL (8.4-10.2); Carbon Dioxide 22 mmol/L (22-29); Chloride 112 mmol/L (96-108); Creatinine Clr Calc Pharmacy 118.8; Estimated Glomerular Filt Rate > 60; Potassium 3.5 mmol/L (3.3-5.1); Sodium 142 mmol/L (135-145); Total Protein 7.4 g/dL (6.5-8.0); Troponin-I High Sensitivity < 2.7 ng/L (<3.5-17.0)
[2025-03-05 18:25] LABS: Resp Syncy Virus RNA Qual PCR NEGATIVE (Negative); SARS COV2 PCR INHOUSE NEGATIVE (Negative)
[2025-03-05 19:16] VITALS: BP 135/63; PULSE 69; RESP 16; TEMP 36.6; O2SAT 100
[2025-03-05 19:35] VITALS: RESP 19
--- NOTE | 2025-03-05 19:49 | ECG_ITS ---
Test Reason : CHEST PAIN Blood Pressure : */* mmHG Vent. Rate : 62 BPM Atrial Rate : 62 BPM P-R Int : 156 ms QRS Dur : 92 ms QT Int : 456 ms P-R-T Axes : 45 44 12 degrees QTcB Int : 462 ms Normal sinus rhythm Abnormal ECG When compared with ECG of 05-Mar-2025 17:23, No significant changes seen Referred By: Bishnu Miller Electronically Signed By: Harjeet Murphy
[2025-03-05] MEDS: iohexoL 350 MG/ML 100 ML INFUS..BTL IV (20:03)
[2025-03-05 20:59] LABS: Troponin-I High Sensitivity < 2.7 ng/L (<3.5-17.0)
[2025-03-05] MEDS: Magnesium Hydrox/Alum Hydrox 30 ML ORAL.SUSP PO (21:08)
[2025-03-05] MEDS: Lidocaine HCl Viscous 2 % 15 ML SOLUTION PO (21:08)
[2025-03-05 21:34] VITALS: BP 111/48; PULSE 75; RESP 18; TEMP 37.1; O2SAT 99
[2025-03-05 23:49] VITALS: BP 111/52; PULSE 70; RESP 15; TEMP 36.8; O2SAT 100
[2025-03-06 01:41] VITALS: BP 117/54; PULSE 72; RESP 16; TEMP 36.6; O2SAT 99
== END 2025-03-06 01:42 | disposition home or self-care (01) ==
PROVIDERS: Physician Assistant; Registered Nurse Emergency; Emergency Provider Internal Medicine
DX: R07.89 Other chest pain (principal); R06.02 Shortness of breath; R11.0 Nausea; Z98.84 Bariatric surgery status; Z03.818 Encounter for observation for suspected exposure to other biological agents ruled out; Z79.899 Other long term (current) drug therapy
CPT/HCPCS: 36415; 71046; 71275; 80053; 84484; 84702; 85025; 85610; 87637; 93005; 96361; 96374; 96375; 99284; J1885; J2270; J2405; Q9967

== ENCOUNTER → 2025-03-05 17:23 | Outpatient (BNV) | payer OTHER, SELFPAY | PROVIDERS: Emergency Provider Internal Medicine; Visit Provider Internal Medicine Cardiovascular Disease | DX: R07.9 Chest pain, unspecified (principal) | CPT/HCPCS: 93010 ==

== ENCOUNTER → 2025-03-05 17:31 | Outpatient (BNV) | payer OTHER, SELFPAY | PROVIDERS: Visit Provider Radiology Diagnostic Radiology | DX: R06.00 Dyspnea, unspecified (principal); R07.9 Chest pain, unspecified | CPT/HCPCS: 71046; 71275 ==

== ENCOUNTER 2025-04-17 16:20 | Outpatient (AMB) | payer OTHER, SELFPAY ==
--- NOTE | 2025-04-17 16:22 | MHC.OFFVISWM ---
VS Expanded 04/17/25 16:28 BP 141/64 H Blood Pressure Location Rt brachial Blood Pressure Position Sitting Pulse 100 Pulse Source Pulse Oximeter Temp 98.3 F Temperature Source Temporal Artery Scan Pulse Oximetry 99 Oxygen Delivery Method Room Air Height 5 ft 5 in Weight 188 lb 6.4 oz BMI 31.3 Body Fat % 37.9 Body Fat Mass 71.4 Fat Free Mass 116.8 Visceral Fat Rating 7.0 Body Water % 44.4 Body Water Mass 83.6 Muscle Mass/Score 110.8 Basal Metabolic Rate/Score 1,618 Intake Visit Reasons: (OV) PO LSG 01/25/24 Non Destructive Evaluation Manager Required: No Allergies No Known Allergies Allergy (Verified 04/17/25 16:24) Medication List - Last Reconciled 04/17/25 by AWAIS Reddy ibuprofen 800 mg PO Q8H leuprolide (3 month) (Lupron Depot) mg IM medroxyprogesterone (Provera) 10 mg PO DAILY 90 days pantoprazole 40 mg PO DAILY HPI Comments Details: This?a?35?yo female who is s/p LSG without hiatal hernia repair on?01/25/2024. Presents for 1 year 3 month post op visit. Weight today is 188.4 pounds, with a BMI of 31.3. There has been a 52.2 pound weight loss,(initial weight 240.6 pounds) since starting the program on 01/03/2023 reflecting a 21.6 % total body weight loss and a weight loss of 28.9 pounds since surgery (operative weight 217.3 pounds) reflecting a 13.2 % TBWL since surgery. Taking celebrate mvi She has not been seen in the office since 5 days postoperatively. On 01/30/2024 her weight was 209 lb with a BMI of 34.8. She states that she had not been seen in over a year as she had lost her insurance. She has now regained her insurance. She additionally has been dealing with heavy menstrual cycles. She was told that she has uterine fibroids and is scheduled for total abdominal hysterectomy at [facility] 07/03/2025. Last labs done approximately 6 weeks ago showed significant anemia. She is undergoing iron infusions every 2 weeks at [facility]. Present meal plan includes: eggs/ham/phelps at 8 am Premier protein 2 scoops in 8 oz almond milk at 12-2 meal at 5 meat/rice/veg Drinking 96 oz water, (2-3 x per month a diet coke) ? Exercise routine includes: nothing over the last 3 months due to vaginal bleeding with increased activity (followed by fbi field agent) [facility] Medical History Thalassemia Pre-op evaluation Cervical cancer screening Well woman exam with routine gynecological exam History of uterine anomaly Carpal tunnel syndrome of left wrist Carpal tunnel syndrome, right Paresthesia of right upper extremity Neuropathy Morbid obesity Anemia Surgical History Hx of gastric bypass S/P laparoscopic sleeve gastrectomy H/O carpal tunnel repair Tubal ligation status History of surgery on arm Hx of section Hx of appendectomy Family History Mother Heart disease Hypertension Brain tumor Diabetes Thyroid condition Father No problems noted. Daughter No problems noted. Son No problems noted. Son No problems noted. 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 Cognitive needs: No Hearing needs: No Vision needs: Yes (glasses) Female Reproductive History Menstrual Age of Menarche: 13 Physical Exam Const General: cooperative and no acute distress Orientation/consciousness: patient oriented x3 Resp Effort & Inspection: normal respiratory effort Auscultation: clear to auscultation bilaterally Cardio Rate: regular rate Rhythm: regular rhythm GI Inspection: Yes normal to inspection and Yes incision (well healed) Palpation (GI): Soft to palpation and no masses Neuro General: patient oriented x3 Assessment & Plan Assessment & Plan (1) S/P laparoscopic sleeve gastrectomy: Code(s): Z98.84 - Bariatric surgery status Category: Surgical Plan: Patient has not been seen since her surgery as she had lost her insurance, this has now been reinstated. She is dealing with significant menorrhagia and is scheduled for total abdominal hysterectomy secondary to severe uterine fibroids. This is being done at [facility] in June. Additionally she is getting iron infusions at [facility]. She is limited in her exercise capacitance as increased activity causes bleeding and increased abdominal pain. We will at least recommend a change in her meal plan: Premier protein powder, 1.5 scoop in the morning and at noon. Meal at night with 6 forks of protein and 6 forks of vegetables. Increased ambulation as much as she is able. We will have her return to the after her procedure such that we can give her increased guidance and advice regarding her exercise plan.
[2025-04-17 16:28] VITALS: BP 141/64; PULSE 100; TEMP 36.8; O2SAT 99; BMI 31.3
== END 2025-04-17 16:42 | disposition home or self-care (01) ==
LOC: HO.HBS 16:21
PROVIDERS: Visit Provider Physician Assistant Surgical
DX: E66.9 Obesity, unspecified (principal); Z68.31 Body mass index [BMI] 31.0-31.9, adult; Z90.3 Acquired absence of stomach [part of]; Z98.84 Bariatric surgery status
CPT/HCPCS: 99213

== ENCOUNTER → 2025-04-17 16:20 | Outpatient (BNVA) | payer OTHER, SELFPAY | PROVIDERS: Visit Provider Physician Assistant Surgical | DX: E66.01 Morbid (severe) obesity due to excess calories (principal); Z68.31 Body mass index [BMI] 31.0-31.9, adult; Z90.3 Acquired absence of stomach [part of]; Z98.84 Bariatric surgery status | CPT/HCPCS: 99212 ==

== ENCOUNTER 2025-05-07 08:23 | Outpatient (AMB) | payer OTHER, SELFPAY ==
[2025-05-07 08:30] VITALS: BP 128/66; PULSE 77; RESP 18; TEMP 36.3; O2SAT 95; BMI 31.3
--- NOTE | 2025-05-07 08:30 | A.OFFPC_ITS ---
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: No Accompanied by: Self / Same As Patient Allergies No Known Allergies Allergy (Verified 05/07/25 08:50) Medication List - Last Reconciled 05/07/25 by Katie Tinsley PA-C ibuprofen 800 mg PO Q8H leuprolide (3 month) (Lupron Depot) mg IM medroxyprogesterone (Provera) 10 mg PO DAILY 90 days pantoprazole 40 mg PO DAILY Tobacco use date assessed: 05/07/25 Dental Screening Dental Screen Date: 05/07/25 Did you have a dental visit in the last 12 months?: No Did you have a dental problem in the last 6 months where you did not have access to dental care?: No Was dental information given to patient?: No HPI establish care HPI Details 35 year old female coming to the office for the first time. She currently follows with weight management s/p lap sleeve gastrectomy and with social work associate for AUB. Presenting for management of multiple chronic conditions and preventative care. Abnormal uterine bleeding has persisted for three months, leading to anemia and requiring biweekly iron infusions. She is followed by social work associate. Scheduled for a hysterectomy on July 03 due to uterine fibroids and abnormal bleeding. Anxiety and depression are ongoing, with panic attacks and feelings of inadequacy related to daily stressors. Attending a support group for mothers has been beneficial for managing anxiety. Fibromyalgia symptoms include intermittent pain and numbness, improved post-surgery but still occur occasionally. Gastroesophageal reflux disease is managed with pantoprazole, with symptoms occurring only after heavy meals. Reports gradual hearing loss in the left ear, with occasional pulsing sensations. Underwent sleeve gastrectomy, resulting in a weight loss of approximately 100 pounds, and no longer requires CPAP for sleep apnea. [facility] Medical History Thalassemia Pre-op evaluation Cervical cancer screening Well woman exam with routine gynecological exam History of uterine anomaly Carpal tunnel syndrome of left wrist Carpal tunnel syndrome, right Paresthesia of right upper extremity Neuropathy Morbid obesity Anemia Surgical History Hx of gastric bypass S/P laparoscopic sleeve gastrectomy H/O carpal tunnel repair Tubal ligation status History of surgery on arm Hx of section Hx of appendectomy Family History Mother Heart disease Hypertension Brain tumor Diabetes Thyroid condition Father No problems noted. Daughter No problems noted. Son No problems noted. Son No problems noted. 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 1. Little interest or pleasure in doing things: nearly every day 2. Feeling down, depressed, or hopeless: nearly every day 3. Trouble falling or staying asleep, or sleeping too much: nearly every day 4. Feeling tired or having little energy: nearly every day 5. Poor appetite or overeating: nearly every day 6. Feeling bad about yourself - or that you are a failure or have let yourself or your family down: nearly every day 7. Trouble concentrating on things, such as reading the newspaper or watching television: nearly every day 8. Moving or speaking so slowly that other people could have noticed. Or the opposite - being so fidgety or restless that you have been moving around a lot more than usual: more than half the days 9. Thoughts that you would be better off or of hurting yourself in some way: not at all Total score: 23 Depression Screening Interpretation: Positive Depression Screening Follow-up: Existing condition Depression Screening Done: Yes Source: Developed by Drs. Joss Vyas, Opal Hall, Sajan Hernandez and colleagues, with an educational binh from [employer]. Thrive Questionnaire Date Thrive assessed: 05/05/25 I am a: Patient What is your living situation today?: I have a place to live, but I am worried about losing it in the future Within the past 12 months, did the food you bought not last and you didn't have the money to get more?: Often true Within the past 12 months, did you worry whether your food would run out before you got money to buy more?: Often true Do you have trouble paying for medicines?: Yes Do you have trouble getting transportation to medical appointments?: No Do you have trouble paying your heating and electricity bill?: Yes Do you have trouble taking care of your child, family member or friend?: Yes Do you have trouble with day-to-day activities such as bathing, preparing meals, shopping, managing finances, etc.?: No Are you currently unemployed and looking for a job?: No Are you interested in more education?: I choose not to answer this question Please select the resources that you would like help with: Food, Utilities and Childcare Currently or been in a relationship where the following occur: No concerns reported THRIVE Score: 4 AUDIT C Alcohol Use Questionnaire (AUDIT-C) 1. How often do you have a drink containing alcohol?: Monthly or less 2. How many drinks containing alcohol do you have on a typical day when you are drinking?: 1 or 2 3. How often do you have six or more drinks on one occasion?: Never Total Score: 1 SIMI-7 AMB Questionnaire SIMI-7 Date SIMI - 7 assessed: 05/07/25 Feeling nervous, anxious, or on edge: 2 = More than half the days Not being able to stop or control worryin = Nearly every day Worrying too much about different things: 3 = Nearly every day Trouble relaxin = Nearly every day Being so restless that it is hard to sit still: 2 = More than half the days Becoming easily annoyed or irritable: 1 = Several days Feeling afraid as if something awful might happen: 2 = More than half the days Total SIMI-7 score (0-4 normal; 5-9 mild; 10-14 moderate; 15-21 severe): 16 Source: Developed by Drs. Joss Vyas, Opal Hall, Sajan Hernandez and colleagues, with an educational binh from [employer]. SIMI-7 Assessment Billing SIMI-7 Assessment Tool: SIMI-7 Assessment 43009 Review of Systems Const Denies body aches, Denies fatigue, Denies fever(s), Denies frequent falls, Denies headache(s) and Denies weakness Eyes Reports no additional complaints and Denies change in vision ENT Reports as per HPI, Denies dysphagia, Denies dizziness, Denies facial pain, Denies headache(s) and Denies odynophagia Card Denies chest pain, Denies syncope, Denies irregular heart rhythm, Denies leg edema, Denies lightheadedness and Denies dyspnea Resp Denies cough and Denies dyspnea GI Denies abdominal pain, Denies dysphagia, Denies dyspepsia, Denies nausea, Denies odynophagia and Denies vomiting Details: heaby vaginal bleeding Musc Denies back pain and Denies myalgias Skin/Breast Reports system reviewed and no additional complaints, except as documented Neuro Denies dizziness, Denies syncope, Denies frequent falls, Denies headache(s) and Denies weakness Psych Reports no additional complaints Endo Denies fatigue Physical exam (Primary Care) Vital Signs: Last Vital Signs Temp 97.3 F 05/07/25 08:30 Pulse 77 05/07/25 08:30 Resp 18 05/07/25 08:30 BP 128/66 05/07/25 08:30 Pulse Ox 95 05/07/25 08:30 Oxygen Delivery Method Room Air 05/07/25 08:30 BMI result Body Mass Index 31.3 Tobacco/Smoking Status: Tobacco use Status Tobacco use date assessed 05/07/25 05/07/25 08:31 Patient Tobacco Use Status Never used Tobacco 05/07/25 08:30 e-Cigarette/Vaping Use Never Used 05/07/25 08:30 PHQ-9: PHQ-9 Score PHQ-9: Total score 23 05/07/25 08:59 Depression Screening Interpretation: Positive Depression Screening Follow-up: Existing condition Thrive Assessment: Date of Thrive Assessment Date Thrive assessed 05/05/25 05/07/25 08:30 Currently or been in a relationship where the following occur: No concerns reported Const General: cooperative, healthy appearing, comfortable and no acute distress Orientation/consciousness: patient oriented x3 HENMT Head: Yes normocephalic Ears: hearing grossly normal bilaterally, TM's normal bilaterally and EAC's normal General nose exam: Normal external nose present Eyes General: appearance normal, both eyes and all related structures Conjunctivae: conjunctivae normal Neck Neck: Yes full ROM and Yes no lymphadenopathy Resp Effort & Inspection: normal respiratory effort Auscultation: clear to auscultation bilaterally, no crackles, no rales, no rhonchi and no wheezes Cardio Rate: regular rate Rhythm: regular rhythm Skin General skin exam: no rashes or lesions noted Neuro General: patient oriented x3 Gait exam (Neuro): Normal gait present Extrem General: Yes normal to inspection, Yes full ROM and No edema Psych Affect: normal affect Attitude: cooperative Insight: Good insight present (Psych) Judgement: Good judgement present (Psych) Coding Level of Care Code New Pt Level 4 (47301) Diagnoses Depression F32.A Generalized anxiety disorder with panic attacks F41.1; F41.0 Obesity (BMI 30-39.9) E66.9 GERD (gastroesophageal reflux disease) K21.9 ADHD F90.9 Fibromyalgia M79.7 NIA (obstructive sleep apnea) G47.33 Steatosis, liver K76.0 Abnormal uterine bleeding (AUB) N93.9 Uterine fibroid D25.9 Unilateral hearing loss H91.90 Additional Codes SIMI-7 Assessment Billing - SIMI-7 Assessment Tool: SIMI-7 Assessment 62617 ([id number]) Assessment & Plan Assessment & Plan (1) Depression: Code(s): F32.A - Depression, unspecified Category: Medical Plan: The patient is experiencing anxiety and depression, with panic attacks and feelings of inadequacy. A support group for mothers has been beneficial, and Wellbutrin has been prescribed to manage symptoms, starting with once daily dosing for a week, then increasing to twice daily. Discussed side effects of this medication and plan to follow up in 2 months. (2) Generalized anxiety disorder with panic attacks: Code(s): F41.1 - Generalized anxiety disorder; F41.0 - Panic disorder [episodic paroxysmal anxiety] Category: Medical Plan: See above plan. (3) Obesity (BMI 30-39.9): Code(s): E66.9 - Obesity, unspecified Category: Medical Plan: Healthy diet and regular exercise is encouraged. (4) GERD (gastroesophageal reflux disease): Code(s): K21.9 - Gastro-esophageal reflux disease without esophagitis Category: Medical Plan: Gastroesophageal reflux disease is managed with pantoprazole, with symptoms occurring only after heavy meals. The patient reports effective symptom control with this regimen. Avoid trigger foods such as citrus, tomato products, soda, caffeine, spicy foods and other foods that may be irritating to your stomach. Avoid laying flat 3-4 hours after eating and elevate the head of the bed 30 degrees to prevent acid from moving into the esophagus. (5) ADHD: Code(s): F90.9 - Attention-deficit hyperactivity disorder, unspecified type Category: Medical Plan: Feels her symptoms are well managed without medication at this time. Discussed with patient Wellbutrin may be beneficial for her. (6) Fibromyalgia: Code(s): M79.7 - Fibromyalgia Category: Medical Plan: Feels her symptoms are well managed without the use of medication at this time. (7) NIA (obstructive sleep apnea): Comment: no longer using CPAP Code(s): G47.33 - Obstructive sleep apnea (adult) (pediatric) Category: Medical Plan: She is no longer using CPAP since the weight loss. She denies any symptoms of hypersomnolence and denies waking up short of breath at night or coughing. (8) Steatosis, liver: Code(s): K76.0 - Fatty (change of) liver, not elsewhere classified Category: Medical Plan: Healthy diet and regular exercise is encouraged. (9) Abnormal uterine bleeding (AUB): Comment: anemia w/ iron infusions h/o thalassemia 2 myomas Code(s): N93.9 - Abnormal uterine and vaginal bleeding, unspecified Category: Medical Plan: The patient is scheduled for a hysterectomy on July 03 to address abnormal uterine bleeding due to uterine fibroids. Iron infusions are being administered biweekly to manage anemia resulting from the bleeding. (10) Uterine fibroid: Code(s): D25.9 - Leiomyoma of uterus, unspecified Category: Medical Plan: See above. (11) Unilateral hearing loss: Code(s): H91.90 - Unspecified hearing loss, unspecified ear Category: Medical Plan: The patient reports gradual hearing loss in the left ear. A hearing test has been ordered to assess the extent of hearing loss and determine further management steps. Plan This note was constructed using voice recognition software. While every effort has been made to ensure accuracy and director channel, still areas may have been included sometimes these areas may affect the content or meeting of the given symptoms. Total time spent caring for the patient today was 30 minutes. This includes time spent before the visit reviewing the chart, time spent during the visit, and time spent after the visit and documentation. Patient was informed and verbally consented to the use of an ambient scribe for clinic note documentation during this visit. Orders: Orders Vitamin B12 and Folate Today Z13.21 - Encounter for screening for nutritional disorder TSH reflex Free T4 Today Z13.29 - Encounter for screening for other suspected endocrine disorder Vitamin D 25-OH Total Today Z13.21 - Encounter for screening for nutritional disorder Lipid Panel Today Z13.220 - Encounter for screening for lipoid disorders CT NG by PCR Vag/Cerv Today Z00.00 - Encounter for general adult medical examination without abnormal findings Referrals Optometry Referral Z00.00 - Encounter for general adult medical examination without abnormal findings Speech and Hearing Referral H91.90 - Unspecified hearing loss, unspecified ear Medications: New bupropion HCl 100 mg PO BID 60 tabs 1RF
== END 2025-05-07 09:16 | disposition home or self-care (01) ==
LOC: HO.HMCH 08:24
DX: F32.A Depression, unspecified (principal); F41.1 Generalized anxiety disorder; E66.9 Obesity, unspecified; Z68.31 Body mass index [BMI] 31.0-31.9, adult; F41.0 Panic disorder [episodic paroxysmal anxiety]; K21.9 Gastro-esophageal reflux disease without esophagitis; F90.9 Attention-deficit hyperactivity disorder, unspecified type; M79.7 Fibromyalgia; G47.33 Obstructive sleep apnea (adult) (pediatric); K76.0 Fatty (change of) liver, not elsewhere classified; N93.9 Abnormal uterine and vaginal bleeding, unspecified; D25.9 Leiomyoma of uterus, unspecified

== ENCOUNTER → 2025-05-07 08:23 | Outpatient (BNVA) | payer OTHER, SELFPAY | DX: F32.A Depression, unspecified (principal); F41.1 Generalized anxiety disorder; F41.0 Panic disorder [episodic paroxysmal anxiety]; E66.9 Obesity, unspecified; Z68.31 Body mass index [BMI] 31.0-31.9, adult; K21.9 Gastro-esophageal reflux disease without esophagitis; F90.9 Attention-deficit hyperactivity disorder, unspecified type; M79.7 Fibromyalgia; G47.33 Obstructive sleep apnea (adult) (pediatric); K76.0 Fatty (change of) liver, not elsewhere classified; N93.9 Abnormal uterine and vaginal bleeding, unspecified; D25.9 Leiomyoma of uterus, unspecified; H91.92 Unspecified hearing loss, left ear; Z98.84 Bariatric surgery status; Z13.31 Encounter for screening for depression; Z13.39 Encounter for screening examination for other mental health and behavioral disorders | CPT/HCPCS: 96127; 99202 ==

== ENCOUNTER 2025-08-04 13:45 | Outpatient (AMB) | payer OTHER, SELFPAY ==
--- NOTE | 2025-08-04 13:45 | A.OFFVIS_ITS ---
VS Expanded 08/04/25 13:48 Height 5 ft 5 in Weight 182 lb BMI 30.3 Intake Visit Reasons: (Phone ) PO LSG 01/25/24 Allergies No Known Allergies Allergy (Verified 05/07/25 08:50) Medication List - Last Reconciled 08/04/25 by AWAIS Koroma bupropion HCl 100 mg PO BID clotrimazole 1% 1 appl topical BID ibuprofen 800 mg PO Q8H leuprolide acetate (3 month) (Lupron Depot) mg IM medroxyprogesterone (Provera) 10 mg PO DAILY 90 days pantoprazole 40 mg PO DAILY HPI Comments Details: This a 35 yo female who is s/p LSG without hiatal hernia repair on 01/25/2024. Presents for 18 month post op visit. Weight today is 188.4 pounds, with a BMI of 31.3. Initial weight 240.6 pounds starting the program on 01/03/2023 and operative weight 217.3 pounds. Taking celebrate mvi She was not seen for a while after surgery due to loss of insurance. She has now regained her insurance. She additionally has been dealing with heavy menstrual cycles. She was told that she has uterine fibroids and had total abdominal hysterectomy at [facility] 07/03/2025. She has recovered well from her procedure. Present meal plan includes: Premier protein powder, 1.5 scoop in the morning and at noon. Meal at night with 6 forks of protein and 6 forks of vegetables. Drinking 96 oz water, (2-3 x per month a diet coke) Exercise routine includes: nothing due to recent surgery, but plans to start in August once further recovered She notes an occasional rash under excess skin of abdomen. She has tried diaper cream on this without relief. She has to use wipes to clean the area and bathes 2x/day to try to keep the area clean. Have you been diagnosed with reflux (GERD)? Score 0-5: 0=no symptoms, 1=noticeable but not bothersome (slight or occasional), 2=noticeable, bothersome but not daily, 3=bothersome and daily, 4=affects daily activities, 5=incapacitating, unable to do daily activities How bad is the heartburn: 0 Heartburn when lying down: 0 Heartburn when standing up: 0 Heartburn after meals: 2 Does heartburn change your diet: 2 Does heartburn wake you up from sleep: 0 Do you have difficulty swallowin Do you have pain with swallowin If you take medication for reflux, does this affect your daily life: 0 Total score: 4 Did the patient ever have any of these conditions and are they resolved or still being treated? GERD: rare now, when triggered- takes PPI NIA:? resolved DM:? never? HTN:? never Hyperlipidemia:? never? Post op complications:? none PFSH Medical History Thalassemia Pre-op evaluation Cervical cancer screening Well woman exam with routine gynecological exam History of uterine anomaly Carpal tunnel syndrome of left wrist Carpal tunnel syndrome, right Paresthesia of right upper extremity Neuropathy Morbid obesity Anemia Surgical History Hx of gastric bypass S/P laparoscopic sleeve gastrectomy H/O carpal tunnel repair Tubal ligation status History of surgery on arm Hx of section Hx of appendectomy Family History Mother Heart disease Hypertension Brain tumor Diabetes Thyroid condition Father No problems noted. Daughter No problems noted. Son No problems noted. Son No problems noted. 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 [employer] Cognitive needs: No Hearing needs: No Vision needs: Yes (glasses) Female Reproductive History Menstrual Age of Menarche: 13 Telehealth Telehealth Telehealth Platform: Telephone Location of provider rendering services: practice address Location of patient: address on file Patient Identification confirmed using: Name, : Yes Telehealth method: voice only Patient verbally consented to treatment: Yes Patient verbally consented to billing insurance company: Yes Patient informed of any privacy concerns related to visit: Yes Minutes spent on Phone/Video with Pt.: 15 Assessment & Plan Assessment & Plan (1) S/P laparoscopic sleeve gastrectomy: Code(s): Z98.84 - Bariatric surgery status Category: Medical (2) Obesity (BMI 30-39.9): Code(s): E66.9 - Obesity, unspecified Category: Medical Plan Pt is doing well on current meal plan, and plans to increase exercise again when cleared to do so by PHYSIOLOG[employer] TEACHER surgeon. She feels much better after hysterectomy. Clotrimazole ointment ordered for rashes of excess skin of abdomen. Discussed weight goal of 162lb to qualify for skin removal surgery with BMI < 27. RTC 3mo TV. Texted pt with my contact info to communicate between visits. Medications: New clotrimazole 1% 1 appl topical BID 45 grams 3RF
[2025-08-04 13:48] VITALS: BMI 30.3
== END 2025-08-04 14:07 | disposition home or self-care (01) ==
LOC: HO.HBS 13:45
PROVIDERS: Visit Provider Physician Assistant Surgical
DX: E66.9 Obesity, unspecified (principal); Z98.84 Bariatric surgery status
CPT/HCPCS: 98014